=== PATIENT | female | born 1955 | race Caucasian/White ===

== ENCOUNTER 2020-08-08 08:58 | Outpatient (REF) | payer OTHER, SELFPAY ==
--- NOTE | 2020-08-08 | MM_ITS ---
EXAMINATION: MM SCREENING DIGITAL BREAST TOMOSYNTHESIS, BILATERAL CLINICAL INFORMATION: Screening. Asymptomatic. The lifetime risk of breast cancer based on the Tyrer-Cuzick Model is 5%. COMPARISON: Mammography: 08/03/2019, 06/29/2018, 06/24/2017 TECHNIQUE: Digital breast tomosynthesis is performed in both the craniocaudal and mediolateral oblique views along with computer-aided detection (CAD). Synthesized 2D images are generated from the tomosynthesis. FINDINGS: The breasts are almost entirely fatty (ACR BI-RADS breast composition Category a). There are no significant masses, abnormal calcifications, or other abnormalities. Again, a dermal lesion overlies the mid inferior right breast. The axilla are unremarkable. No significant changes. MM/MM tomosynthesis screening BI IMPRESSION: No mammographic evidence of malignancy. ASSESSMENT: BI-RADS 2: Benign RECOMMENDATION: Routine annual mammography screening. This patient's information was entered into a reminder system with a target due date for their next mammogram.
== END 2020-08-08 08:59 | disposition home or self-care (01) ==
LOC: HO.MAMMO 08:58
PROVIDERS: PCP Internal Medicine; Visit Provider Internal Medicine
DX: Z12.31 Encounter for screening mammogram for malignant neoplasm of breast (principal)
CPT/HCPCS: 77063; 77067

== ENCOUNTER 2020-09-18 07:58 | Outpatient (REF) | payer OTHER, SELFPAY ==
[2020-09-18 11:43] LABS: Hematocrit 42.6 % (37-47); Hemoglobin 13.7 g/dl (12.0-16.0); Mean Corpuscular HGB Conc 32.2 g/dl (31.0-35.0); Mean Corpuscular Hemoglobin 30.7 pg (27.0-33.0); Mean Corpuscular Volume 95.5 fL (80-98); Mean Platelet Volume 9.8 fL (9.4-12.3); Platelet Count 189 X10*3/uL (160-400); Red Blood Count 4.46 X10*6/uL (4.20-5.50); Red Cell Distribution Width 12.8 % (11.0-16.0); White Blood Count 5.2 X10*3/uL (4.8-10.8)
[2020-09-18 12:01] LABS: Glucose Urine UA NEG (NEG); Leukocyte Esterase Urine NEG (NEG); Nitrite Urine NEG (NEG); PH 5.5 (5.0-8.0); Specific Gravity - Urine 1.025 (1.005-1.025); Urine Blood 1+ (NEG); Urine Ketones NEG (NEG); Urine Protein NEG (NEG-TRACE)
[2020-09-18 12:03] LABS: Appearance Urine CLOUDY; Color Urine YELLOW
[2020-09-18 12:07] LABS: Alanine Aminotransferase 36 U/L (0-31); Albumin Level 4.2 g/dL (3.5-5.0); Alkaline Phosphatase 63 U/L (39-117); Anion Gap 16 (12-20); Aspartate Amino Transferase 36 U/L (5-31); Bilirubin Total 0.9 mg/dL (0.0-1.0); Blood Urea Nitrogen 11 mg/dL (9-16); Calcium 8.4 mg/dL (8.4-10.2); Carbon Dioxide 26 mmol/L (22-29); Chloride 105 mmol/L (96-108); Cholesterol 201 mg/dL; Estimated Glomerular Filt Rate > 60; Glucose Fasting 96 mg/dL (60-99); HDL Cholesterol 69 mg/dL; LDL Cholesterol Calculated 93 mg/dl; Sodium 143 mmol/L (135-145); Total Protein 6.2 g/dL (6.5-8.0); Triglycerides 197 mg/dL
[2020-09-18 12:20] LABS: Amorphous Sediment Urine 4+ /LPF; RBC Urine 0-2 /HPF (0); Squamous Epithelial Cell Urine 1+ /LPF; WBC Urine 0 /HPF (0-4)
== END 2020-09-18 07:59 | disposition home or self-care (01) ==
LOC: HO.HMGCLDS 07:58
PROVIDERS: PCP Internal Medicine; Visit Provider Internal Medicine
DX: E78.2 Mixed hyperlipidemia (principal); I10 Essential (primary) hypertension; R73.9 Hyperglycemia, unspecified
CPT/HCPCS: 36415; 80053; 80061; 81001; 81003; 85027

== ENCOUNTER 2020-09-23 11:46 | Outpatient (REF) | payer OTHER, SELFPAY ==
--- NOTE | 2020-09-23 11:50 | XR_ITS ---
EXAMINATION: XR KNEE BILATERAL STANDING XR KNEE, RIGHT XR KNEE, LEFT CLINICAL INFORMATION: Knee pain COMPARISON: 07/31/2018. TECHNIQUE: AP standing view both knees Left knee, AP and lateral views Right knee, AP and lateral views FINDINGS: On the AP standing view, bones, joints and soft tissues of both knees have a normal appearance. The two views of the left knee show minimal osteophyte formation of the patella. No knee joint effusion or focal soft tissue swelling. The two views of the right knee show well preserved joint spaces. No arthritic deformity or joint effusion. XR/XR knee standing BI IMPRESSION: The joint spaces of both knees are well-preserved. No significant degenerative process at either knee. There appears to be chronic, minimal osteoarthrosis of the patellofemoral compartment of the left knee.
--- NOTE | 2020-09-23 11:50 | XR_ITS ---
EXAMINATION: XR KNEE BILATERAL STANDING XR KNEE, RIGHT XR KNEE, LEFT CLINICAL INFORMATION: Knee pain COMPARISON: 07/31/2018. TECHNIQUE: AP standing view both knees Left knee, AP and lateral views Right knee, AP and lateral views FINDINGS: On the AP standing view, bones, joints and soft tissues of both knees have a normal appearance. The two views of the left knee show minimal osteophyte formation of the patella. No knee joint effusion or focal soft tissue swelling. The two views of the right knee show well preserved joint spaces. No arthritic deformity or joint effusion. XR/XR knee LT 2V IMPRESSION: The joint spaces of both knees are well-preserved. No significant degenerative process at either knee. There appears to be chronic, minimal osteoarthrosis of the patellofemoral compartment of the left knee.
--- NOTE | 2020-09-23 11:50 | XR_ITS ---
EXAMINATION: XR KNEE BILATERAL STANDING XR KNEE, RIGHT XR KNEE, LEFT CLINICAL INFORMATION: Knee pain COMPARISON: 07/31/2018. TECHNIQUE: AP standing view both knees Left knee, AP and lateral views Right knee, AP and lateral views FINDINGS: On the AP standing view, bones, joints and soft tissues of both knees have a normal appearance. The two views of the left knee show minimal osteophyte formation of the patella. No knee joint effusion or focal soft tissue swelling. The two views of the right knee show well preserved joint spaces. No arthritic deformity or joint effusion. XR/XR knee RT 2V IMPRESSION: The joint spaces of both knees are well-preserved. No significant degenerative process at either knee. There appears to be chronic, minimal osteoarthrosis of the patellofemoral compartment of the left knee.
== END 2020-09-23 11:47 | disposition home or self-care (01) ==
LOC: HO.HMGCX 11:46
PROVIDERS: PCP Internal Medicine; Visit Provider Internal Medicine
DX: G89.29 Other chronic pain (principal); M25.561 Pain in right knee; M25.562 Pain in left knee
CPT/HCPCS: 73560; 73565

== ENCOUNTER 2020-09-30 08:01 | Outpatient (REF) | payer OTHER, SELFPAY ==
--- NOTE | 2020-09-30 08:06 | MM_ITS ---
EXAMINATION: BONE DENSITOMETRY CLINICAL INDICATION: Menopause. COMPARISON: Previous BD dated 10/20/2017 and baseline BD dated 09/29/2009. TECHNIQUE: Using a [employer] DXA System (software version: 13.1) manufactured by [employer], dual-energy x-ray absorptiometry was performed of the lumbar spine and left hip. The images are of good technical quality. Summary results are attached. FINDINGS: AP SPINE L1-L4: Current: BMD 1.028 g/cm2, Z-score -0.3, T-score -1.3, osteopenia, 3.7% increase from previous, 1.2% decrease from baseline (<5% change is not significant). Prior: BMD 0.991 g/cm2. Baseline: BMD 1.041 g/cm2. LEFT FEMUR, NECK: Current: BMD 0.899 g/cm2, Z-score 0.0, T-score -1.0, normal. Prior: BMD 0.897 g/cm2. Baseline: BMD 0.879 g/cm2. LEFT FEMUR, TOTAL: Current: BMD 0.908 g/cm2, Z-score -0.1, T-score -0.8, normal, 2.8% increase from previous, 3.7% increase from baseline (<5% change is not significant). Prior: BMD 0.883 g/cm2. Baseline: BMD 0.876 g/cm2. IDENTIFIED RISK FACTORS: Early menopause, secondary osteoporosis. HISTORY OF FRACTURE: None listed. MEDICATIONS: Calcium, vitamin D. MM/XR DEXA axial skeleton IMPRESSION: 1. DIAGNOSIS: Osteopenia based on the lowest T-score value of -1.3 in the lumbar spine applying World Health Organization criteria. 2. 10-YEAR FRACTURE RISK PREDICTION, FRAX: Major osteoporotic fracture (clinical spine, forearm, hip or shoulder) 7.4%. Hip fracture 0.5%. 3. Treatment Recommendations: NOF guidelines recommend consideration for treatment in postmenopausal women and men age 50 and older presenting with the following: -A hip or vertebral (clinical or morphometric) fracture. -T-score less than or equal to -2.5 at the femoral neck or spine after appropriate evaluation to exclude secondary causes. -Low bone mass at the hip or spine and a 10-year fracture probability by FRAX of greater than or equal to 3% for hip fracture or greater than or equal to 20% for major osteoporotic fracture based on the [place] adapted WHO algorithm. 4. Other Recommendations: All treatment decisions require clinical judgment and consideration of individual patient factors, including patient preferences, comorbidities, previous drug use, risk factors not captured in the FRAX model (e.g. frailty, falls, vitamin D deficiency, increased bone turnover, interval significant decline in bone density) and possible under or overestimation of fracture risk by FRAX. Additional medical evaluation for secondary cause of low bone mineral density may be appropriate. FUTURE SCAN RECOMMENDATION: People with diagnosed cases of osteoporosis or at high risk for fracture should have regular bone mineral density tests. For patients eligible for Medicare, routine testing is allowed once every 2 years. The testing frequency can be increased to one year for patients who have rapidly progressing disease, those who are receiving or discontinuing medical therapy to restore bone mass, or have additional risk factors.
== END 2020-09-30 08:02 | disposition home or self-care (01) ==
LOC: HO.MAMMO 08:01
PROVIDERS: PCP Internal Medicine; Visit Provider Internal Medicine
DX: Z13.820 Encounter for screening for osteoporosis (principal); M85.88 Other specified disorders of bone density and structure, other site; Z78.0 Asymptomatic menopausal state
CPT/HCPCS: 77080

== ENCOUNTER 2020-10-08 07:57 | Outpatient (REF) | payer OTHER, SELFPAY ==
--- NOTE | ~2020-10-08 | XR_ITS ---
EXAMINATION: XR KNEE, RIGHT XR KNEE, LEFT CLINICAL INFORMATION: Bilateral knee pain. COMPARISON: Bilateral knee radiographs 09/23/2020. TECHNIQUE: Standing AP view of both knees is performed. Each knee is also imaged in lateral and axial patella views. FINDINGS: Right: Normal bony mineralization. No fracture or dislocation or suprapatellar effusion. No joint narrowing or erosive change or chondrocalcinosis. Axial view patella shows no joint narrowing or erosive change. No lateralization or tilting. Left: Normal bony mineralization. No fracture or dislocation or suprapatellar effusion. No joint narrowing or erosive change or chondrocalcinosis. Axial view patella shows no joint narrowing or erosive change. No lateralization or tilting. XR/XR knee RT 2V IMPRESSION: Unremarkable bilateral knees.
--- NOTE | ~2020-10-08 | XR_ITS ---
EXAMINATION: XR PELVIS CLINICAL INFORMATION: M25.559 - Pain in unspecified hip COMPARISON: None TECHNIQUE: AP view of the pelvis. FINDINGS: Bony mineralization appears normal. There is no fracture, dislocation, destructive process. The SI joints and pubis are unremarkable. There is prominent axial narrowing left hip with mild subchondral sclerosis and small osteophytes at base femoral head. There is mild benign appearing mineralization in soft tissues adjacent to the greater trochanter likely related to calcific tendinosis. There is lesser axial narrowing right hip. XR/XR pelvis 1-2V IMPRESSION: 1. Bilateral axial hip joint narrowing, greater on left. No visible erosive change. 2. Probable calcific tendinosis adjacent to left hip greater trochanter.
--- NOTE | ~2020-10-08 | XR_ITS ---
EXAMINATION: XR KNEE, RIGHT XR KNEE, LEFT CLINICAL INFORMATION: Bilateral knee pain. COMPARISON: Bilateral knee radiographs 09/23/2020. TECHNIQUE: Standing AP view of both knees is performed. Each knee is also imaged in lateral and axial patella views. FINDINGS: Right: Normal bony mineralization. No fracture or dislocation or suprapatellar effusion. No joint narrowing or erosive change or chondrocalcinosis. Axial view patella shows no joint narrowing or erosive change. No lateralization or tilting. Left: Normal bony mineralization. No fracture or dislocation or suprapatellar effusion. No joint narrowing or erosive change or chondrocalcinosis. Axial view patella shows no joint narrowing or erosive change. No lateralization or tilting. XR/XR knee LT 2V IMPRESSION: Unremarkable bilateral knees.
== END 2020-10-08 07:58 | disposition home or self-care (01) ==
LOC: HO.HOSX 07:57
PROVIDERS: Visit Provider Orthopaedic Surgery
DX: M25.562 Pain in left knee (principal); M16.0 Bilateral primary osteoarthritis of hip
CPT/HCPCS: 20610; 72170; 73560; J1100

== ENCOUNTER → 2021-01-07 10:06 | Outpatient (BNVA) | payer OTHER, SELFPAY | PROVIDERS: PCP Internal Medicine; Visit Provider Orthopaedic Surgery ==

== ENCOUNTER → 2021-02-11 10:44 | Outpatient (BNVA) | payer OTHER, SELFPAY | PROVIDERS: PCP Internal Medicine; Visit Provider Orthopaedic Surgery ==

== ENCOUNTER 2021-02-18 | Outpatient (REF) | payer OTHER, SELFPAY | END 2021-02-18 00:01 | disposition home or self-care (01) | LOC: HO.LAB | PROVIDERS: PCP Internal Medicine; Visit Provider Physician Assistant | DX: Z01.812 Encounter for preprocedural laboratory examination (principal); I10 Essential (primary) hypertension; E78.00 Pure hypercholesterolemia, unspecified; R79.89 Other specified abnormal findings of blood chemistry | CPT/HCPCS: 36415; 80048; 80053; 80061; 84443; 85025 ==

== ENCOUNTER 2021-03-11 10:41 | Outpatient (REF) | payer OTHER, SELFPAY ==
--- NOTE | ~2021-03-11 | XR_ITS ---
EXAMINATION: XR PELVIS XR HIP, LEFT CLINICAL INFORMATION: Left hip pain. COMPARISON: Most recent pelvic radiograph dated 10/08/2020. TECHNIQUE: AP view the pelvis. AP and frog-leg lateral views of the left hip. FINDINGS: Moderate bilateral hip joint space narrowing with prominent marginal osteophytes and acetabular subchondral sclerosis. No osseous erosion. No fracture or dislocation. No abnormal soft tissue calcification. XR/XR pelvis 1-2V IMPRESSION: Moderate bilateral hip osteoarthritis, not significantly changed.
--- NOTE | ~2021-03-11 | XR_ITS ---
EXAMINATION: XR PELVIS XR HIP, LEFT CLINICAL INFORMATION: Left hip pain. COMPARISON: Most recent pelvic radiograph dated 10/08/2020. TECHNIQUE: AP view the pelvis. AP and frog-leg lateral views of the left hip. FINDINGS: Moderate bilateral hip joint space narrowing with prominent marginal osteophytes and acetabular subchondral sclerosis. No osseous erosion. No fracture or dislocation. No abnormal soft tissue calcification. XR/XR hip LT min 2V IMPRESSION: Moderate bilateral hip osteoarthritis, not significantly changed.
== END 2021-03-11 10:42 | disposition home or self-care (01) ==
LOC: HO.HOSX 10:41
PROVIDERS: PCP Internal Medicine; Visit Provider Physician Assistant
DX: M16.12 Unilateral primary osteoarthritis, left hip (principal)
CPT/HCPCS: 72170; 73502

== ENCOUNTER 2021-03-16 07:31 | Inpatient (IN) | payer OTHER, SELFPAY ==
[2021-02-18 11:25] LABS: MANUAL DIFF FLAG NO
[2021-02-18 11:42] LABS: Basophils Percent Auto 0.6 % (0-2); Eosinophils Absolute Auto 0.1 X10*3/uL (0.0-0.4); Eosinophils Percent Auto 1.4 % (0-4); Hematocrit 41.2 % (37-47); Hemoglobin 13.4 g/dl (12.0-16.0); Imm Gran Abs Auto 0.01 X10*3/uL (0.00-0.03); Imm Gran Pct Auto 0.2 % (0.0-0.4); Lymphocytes Absolute Auto 1.3 X10*3/uL (1.2-4.9); Lymphocytes Percent Auto 27.1 % (20-40); Mean Corpuscular HGB Conc 32.5 g/dl (31.0-35.0); Mean Corpuscular Hemoglobin 30.6 pg (27.0-33.0); Mean Corpuscular Volume 94.1 fL (80-98); Mean Platelet Volume 9.6 fL (9.4-12.3); Monocytes Absolute Auto 0.4 X10*3/uL (0.1-1.2); Monocytes Percent Auto 7.3 % (2-11); Neutrophils Absolute Auto 3.1 X10*3/uL (2.0-8.3); Neutrophils Percent Auto 63.4 % (45-73); Platelet Count 192 X10*3/uL (160-400); Red Blood Count 4.38 X10*6/uL (4.20-5.50); Red Cell Distribution Width 12.7 % (11.0-16.0); White Blood Count 4.9 X10*3/uL (4.8-10.8)
[2021-02-18 11:49] LABS: Alanine Aminotransferase 29 U/L (0-31); Albumin Level 4.1 g/dL (3.5-5.0); Alkaline Phosphatase 63 U/L (39-117); Anion Gap 15 (12-20); Aspartate Amino Transferase 31 U/L (5-31); Bilirubin Total 0.7 mg/dL (0.0-1.0); Blood Urea Nitrogen 8 mg/dL (9-16); Calcium 8.8 mg/dL (8.4-10.2); Carbon Dioxide 25 mmol/L (22-29); Chloride 107 mmol/L (96-108); Cholesterol 194 mg/dL; Estimated Glomerular Filt Rate > 60; Glucose Fasting 98 mg/dL (60-99); HDL Cholesterol 72 mg/dL; LDL Cholesterol Calculated 90 mg/dl; Potassium 3.9 mmol/L (3.3-5.1); Sodium 143 mmol/L (135-145); Total Protein 6.2 g/dL (6.5-8.0); Triglycerides 164 mg/dL
[2021-02-18 12:10] LABS: TSH reflex Free T4 1.65 uIU/mL (0.32-4.0)
--- NOTE | 2021-02-26 09:10 | ECG_ITS ---
Test Reason : Z01.810 - Encounter for preprocedural cardiovascular exam... Blood Pressure : / mmHG Vent. Rate : 075 BPM Atrial Rate : 075 BPM P-R Int : 156 ms QRS Dur : 078 ms QT Int : 384 ms P-R-T Axes : 066 020 038 degrees QTc Int : 428 ms Sinus rhythm with frequent Premature ventricular complexes Otherwise normal ECG When compared with ECG of 04-OCT-2013 07:06, Premature ventricular complexes are now Present Referred By: Steven Lobato Electronically Signed By:CARLTON DOMINGUEZ MD
[2021-03-02 11:05] VITALS: BMI 35.4
[2021-03-02 12:09] VITALS: BP 146/76; PULSE 85; RESP 16; O2SAT 96
--- NOTE | 2021-03-02 12:11 | P.CONAN_ITS ---
Documented by User: Michelle Chin 03/15/21 08:23 HPI - Anesthesia Eval Consult details Narrative: 66yo F for Left Total Hip Replacement PCP cleared [facility] Active Problems Active Problems: All Active Problems (Updated 03/02/21 @ 11:02 by Sveta Castro) Elevated LFTs (Acute) Osteoarthritis of hips, bilateral (Acute) HTN (hypertension) (Acute) Hypercholesterolemia (Acute) Nevus (Acute) Annual physical exam (Acute) Postmenopausal (Acute) Knee pain, chronic (Acute) Past Medical History Medical History Annual physical exam Anxiety Ramon's esophagus COVID-19 vaccine series completed Elevated LFTs Glaucoma HTN (hypertension) Hypercholesterolemia Knee pain, chronic Nevus Osteoarthritis of hips, bilateral Plantar fasciitis of left foot Postmenopausal Family History Family History Father Bladder cancer Mother No problems noted. Maternal Grandmother COPD (chronic obstructive pulmonary disease) Myocardial infarction Maternal Grandfather No problems noted. Paternal Grandfather No problems noted. Paternal Grandmother No problems noted. Brother Substance use disorder Family history of problems with anesthesia: No Surgical History Surgical History H/O colonoscopy History of esophagogastroduodenoscopy (EGD) Hx of eye surgery History of Problems with Anesthesia: No Social History Social History Housing: House Are you a primary menagerie caretaker to a significant other at home: No Do you presently have visiting nurse or other home services: No Alcohol intake: current Alcohol intake frequency: holidays/special occasions only Patient Tobacco Use Status: Never used Tobacco e-Cigarette/Vaping Use: Never Used Second Hand Smoke Exposure: No Use of substances other than those prescribed or required for medical reasons: No Have you been hit, kicked, punched, or otherwise hurt by someone within the past year? 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 No CP/SOB within limits of OA pain. Meds Allergies Allergy/AdvReac Type Severity Reaction Status Date / Time amoxicillin [AMOXICILLIN] Allergy Intermediate HIVES Verified 03/02/21 11:03 latex Allergy Intermediate Redness of Verified 03/02/21 11:03 Skin, irritation Home Medications Medication Instructions Recorded Confirmed Last Taken Type flu vacc [id number](65yr up)-PF 240 ml IM 09/23/20 02/11/21 Unknown History mcg/0.7 mL intramuscular syringe varicella-zoster glycoE [id number] 0.5 ml IM DIRECTED 09/23/20 02/11/21 Unknown History adj(PF) 50 mcg/0.5 mL IM susp, kit latanoprost 0.005 % eye drops 1 drp OPHTHALMIC (EYE) BEDTIME 12/30/20 03/02/21 Unknown History timolol maleate 0.5 % eye drops 1 drp OPHTHALMIC (EYE) DAILY@0630 12/30/20 03/02/21 Unknown History Exam Exam Date and Time: March 02, 2021 1211 Height,Weight and Vital Signs: Height 5 ft 2 in Weight 87.997 kg Last Vital Signs Pulse 85 03/02/21 12:09 Resp 16 03/02/21 12:09 BP 146/76 H 03/02/21 12:09 Pulse Ox 96 03/02/21 12:09 Pertinent Lab Results Pertinent Lab Results: Lab Results 02/18/21 02/18/21 03/02/21 Range/Units 08:55 08:55 12:30 WBC 4.9 (4.8-10.8) X10*3/uL RBC 4.38 (4.20-5.50) X10*6/uL Hgb 13.4 (12.0-16.0) g/dl Hct 41.2 (37-47) % MCV 94.1 (80-98) fL MCH 30.6 (27.0-33.0) pg MCHC 32.5 (31.0-35.0) g/dl RDW 12.7 (11.0-16.0) % Plt Count 192 (160-400) X10*3/uL MPV 9.6 (9.4-12.3) fL Immature Gran % (Auto) 0.2 (0.0-0.4) % Neut % (Auto) 63.4 (45-73) % Lymph % (Auto) 27.1 (20-40) % Hamilton % (Auto) 7.3 (2-11) % Eos % (Auto) 1.4 (0-4) % Baso % (Auto) 0.6 (0-2) % Lymph # (Auto) 1.3 (1.2-4.9) X10*3/uL Hamilton # (Auto) 0.4 (0.1-1.2) X10*3/uL Eos # (Auto) 0.1 (0.0-0.4) X10*3/uL Baso # (Auto) 0.0 (0.0-0.2) X10*3/uL Abs Immat Gran (auto) 0.01 (0.00-0.03) X10*3/uL Absolute Neuts (auto) 3.1 (2.0-8.3) X10*3/uL Absolute Nucleated RBC 0.000 (0.0-0.012) X10*3/uL Nucleated RBC % (auto) 0.0 (0.0-0.2) /100WBC Sodium 143 (135-145) mmol/L Potassium 3.9 (3.3-5.1) mmol/L Chloride 107 (96-108) mmol/L Carbon Dioxide 25 (22-29) mmol/L Anion Gap 15 (12-20) BUN 8 L (9-16) mg/dL Creatinine 0.68 (0.5-1.4) mg/dL Estim Creat Clear Calc TNP Estimated GFR > 60 Random Glucose TNP Fasting Glucose 98 (60-99) mg/dL Calcium 8.8 (8.4-10.2) mg/dL Total Bilirubin 0.7 (0.0-1.0) mg/dL AST 31 (5-31) U/L ALT 29 (0-31) U/L Alkaline Phosphatase 63 (39-117) U/L Total Protein 6.2 L (6.5-8.0) g/dL Albumin 4.1 (3.5-5.0) g/dL Triglycerides 164 mg/dL Cholesterol 194 mg/dL LDL Cholesterol, Calc 90 mg/dl HDL Cholesterol 72 mg/dL TSH 1.65 (0.32-4.0) uIU/mL Nasal Screen MRSA (PCR) NEGATIVE (Negative) Nasal S. aureus Screen NEGATIVE (Negative) Nasal MRSA/S.aureus Interp SEE NOTE Blood Type Antibody Screen 03/02/21 03/02/21 Range/Units 12:40 12:40 WBC 6.9 (4.8-10.8) X10*3/uL RBC 4.70 (4.20-5.50) X10*6/uL Hgb 14.3 (12.0-16.0) g/dl Hct 43.5 (37-47) % MCV 92.6 (80-98) fL MCH 30.4 (27.0-33.0) pg MCHC 32.9 (31.0-35.0) g/dl RDW 12.7 (11.0-16.0) % Plt Count 242 D (160-400) X10*3/uL MPV 9.3 L (9.4-12.3) fL Immature Gran % (Auto) (0.0-0.4) % Neut % (Auto) (45-73) % Lymph % (Auto) (20-40) % Hamilton % (Auto) (2-11) % Eos % (Auto) (0-4) % Baso % (Auto) (0-2) % Lymph # (Auto) (1.2-4.9) X10*3/uL Hamilton # (Auto) (0.1-1.2) X10*3/uL Eos # (Auto) (0.0-0.4) X10*3/uL Baso # (Auto) (0.0-0.2) X10*3/uL Abs Immat Gran (auto) (0.00-0.03) X10*3/uL Absolute Neuts (auto) (2.0-8.3) X10*3/uL Absolute Nucleated RBC 0.000 (0.0-0.012) X10*3/uL Nucleated RBC % (auto) 0.0 (0.0-0.2) /100WBC Sodium (135-145) mmol/L Potassium (3.3-5.1) mmol/L Chloride (96-108) mmol/L Carbon Dioxide (22-29) mmol/L Anion Gap (12-20) BUN (9-16) mg/dL Creatinine (0.5-1.4) mg/dL Estim Creat Clear Calc Estimated GFR Random Glucose Fasting Glucose (60-99) mg/dL Calcium (8.4-10.2) mg/dL Total Bilirubin (0.0-1.0) mg/dL AST (5-31) U/L ALT (0-31) U/L Alkaline Phosphatase (39-117) U/L Total Protein (6.5-8.0) g/dL Albumin (3.5-5.0) g/dL Triglycerides mg/dL Cholesterol mg/dL LDL Cholesterol, Calc mg/dl HDL Cholesterol mg/dL TSH (0.32-4.0) uIU/mL Nasal Screen MRSA (PCR) (Negative) Nasal S. aureus Screen (Negative) Nasal MRSA/S.aureus Interp Blood Type O Positive Antibody Screen NEGATIVE Narrative Narrative: EKG 02/2021 SR with freq PVCs @ 75 Airway Mallampati Class: II TM Dist: >3cm Neck ROM: Full Loose/Missing/Broken Teeth: No (2 crowned upper side molars) Heart: RRR Lungs: CTAB Assessment and Plan Assessment Anesthesia Assessment: Anesthesia Plan Discussed (GA with possible block) and PAT Visit Documented by User: Nehemias Dubois 03/16/21 08:46 PMFSH Past Medical History Medical History Annual physical exam Anxiety Ramon's esophagus COVID-19 vaccine series completed Elevated LFTs Glaucoma HTN (hypertension) Hypercholesterolemia Knee pain, chronic Nevus Osteoarthritis of hips, bilateral Plantar fasciitis of left foot Postmenopausal Family History Family History Father Bladder cancer Mother No problems noted. Maternal Grandmother COPD (chronic obstructive pulmonary disease) Myocardial infarction Maternal Grandfather No problems noted. Paternal Grandfather No problems noted. Paternal Grandmother No problems noted. Brother Substance use disorder Surgical History Surgical History H/O colonoscopy History of esophagogastroduodenoscopy (EGD) Hx of eye surgery Social History Social History Housing: House Are you a primary menagerie caretaker to a significant other at home: No Do you presently have visiting nurse or other home services: No Alcohol intake: current Alcohol intake frequency: holidays/special occasions only Patient Tobacco Use Status: Never used Tobacco e-Cigarette/Vaping Use: Never Used Second Hand Smoke Exposure: No Use of substances other than those prescribed or required for medical reasons: No Have you been hit, kicked, punched, or otherwise hurt by someone within the past year? 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 Meds Allergies Allergy/AdvReac Type Severity Reaction Status Date / Time amoxicillin [AMOXICILLIN] Allergy Intermediate HIVES Verified 03/02/21 11:03 latex Allergy Intermediate Redness of Verified 03/02/21 11:03 Skin, irritation Home Medications Medication Instructions Recorded Confirmed Last Taken Type flu vacc [id number](65yr up)-PF 240 ml IM 09/23/20 02/11/21 Unknown History mcg/0.7 mL intramuscular syringe varicella-zoster glycoE vacc-[id number] 0.5 ml IM DIRECTED 09/23/20 02/11/21 Unknown History adj(PF) 50 mcg/0.5 mL IM susp, kit latanoprost 0.005 % eye drops 1 drp OPHTHALMIC (EYE) BEDTIME 12/30/20 03/02/21 Unknown History timolol maleate 0.5 % eye drops 1 drp OPHTHALMIC (EYE) DAILY@0630 12/30/20 03/02/21 Unknown History Exam Airway Mallampati Class: II TM Dist: >3cm Neck ROM: Full Loose/Missing/Broken Teeth: No Heart: [id number] Lungs: cta b/l Assessment and Plan Assessment Anesthesia Assessment: Anesthesia Plan Discussed, PAT Visit and Chart Reviewed Final Anesthetic Review NPO: Yes ASA Class: III Final Preanesthetic Review: No Changes in Pt Med Stat, Meds/Allgs Chart Reviewed, Consent Obtained/Reviewed and Anes Risks/Benef Reviewed Patient Risk: Intermediate Procedure Risk: Intermediate Assessment/Block/Sedation in SS: Assess/Block/Sedation-SS Anesthetic Plan Anesthetic Plan: GA and Agree w/ Assess. and Plan Disposition: Standard PACU
[2021-03-02 13:18] LABS: Hematocrit 43.5 % (37-47); Hemoglobin 14.3 g/dl (12.0-16.0); Mean Corpuscular HGB Conc 32.9 g/dl (31.0-35.0); Mean Corpuscular Hemoglobin 30.4 pg (27.0-33.0); Mean Corpuscular Volume 92.6 fL (80-98); Mean Platelet Volume 9.3 fL (9.4-12.3); Platelet Count 242 X10*3/uL (160-400); Red Cell Distribution Width 12.7 % (11.0-16.0); White Blood Count 6.9 X10*3/uL (4.8-10.8)
[2021-03-02 14:11] LABS: MRSA Nasal PCR NEGATIVE (Negative); SA Nasal PCR NEGATIVE (Negative)
[2021-03-16] VITALS (19 sets, daily range): BP systolic 128–160; BP diastolic 69–99; PULSE 72–108; RESP 10–116; TEMP 35.8–36.6; O2SAT 90–98
--- NOTE | ~2021-03-16 | XR_ITS ---
EXAMINATION: XR PELVIS CLINICAL INFORMATION: Post left hip replacement COMPARISON: Previous x-ray most recent 03/11/2021 TECHNIQUE: AP view of the pelvis. FINDINGS: There is a new left hip replacement in satisfactory position. No fracture or dislocation is seen. Bones of the pelvis and right hip are unremarkable. There are postoperative changes to the soft tissues. XR/XR pelvis 1-2V IMPRESSION: Satisfactory appearance of left hip replacement.
[2021-03-16] MEDS: oxyCODONE HCl ER 10 MG TAB.ER.12H PO (07:57)
[2021-03-16] MEDS: Lactated Ringers 1,000 ML 100 ML IVCONT (08:44)
[2021-03-16 09:15] LABS: COVID-19 Test Negative (Negative)
--- NOTE | 2021-03-16 09:18 | MHC.SHP ---
Pre-Procedural Eval Section A Date of Service: 03/16/21 The patient is an INPATIENT: No Changes since office visit: Yes Patient answered all questions; No Cold of Flu in the past 2 weeks, No New Medical Problems and No Changes in Medication The History & Physical has been completed within 30 days and I have reviewed it.: Yes Section B Chief Complaint: LEFT TOTAL HIP ARTHROPLASTY Allergies: Allergies Allergy/AdvReac Type Severity Reaction Status Date / Time amoxicillin [AMOXICILLIN] Allergy Intermediate HIVES Verified 03/02/21 11:03 latex Allergy Intermediate Redness of Verified 03/02/21 11:03 Skin, irritation Plan I have reviewed the history and physical and performed a pertinent physical examination on my patient. No changes have occurred unless specified.
--- NOTE | 2021-03-16 11:42 | P.BOP_ITS ---
Brief Operative Note Date of Service: 03/16/21 Pre-op diagnosis: left hip OA Procedure: Left DANNY Implants: Edis Trident2#50 and Accolade2#4 132deg with -5 36 ceramic head Surgeon: Steevn Lobato MD Anesthesia: GETA and local Was an Dealership Manager used for this Procedure?: Yes Dealership Manager: Corey Perez Estimated blood loss (mL): 150 IV fluids (mL): 1,000 Pathology: other Condition: stable Disposition: PACU
[2021-03-16] MEDS: HYDROmorphone HCl 0.5 MG/0.5 ML SYRINGE IVPUSH (12:11)
--- NOTE | 2021-03-16 12:12 | W.PM.OPN ---
Operative Note Operative Note Date of Service: 03/16/21 Narrative: Pre-op diagnosis: left hip OA Procedure: Left DANNY Implants: Edis Trident2#50 and Accolade2#4 132deg with -5 36 ceramic head Surgeon: Steven Lobato MD Anesthesia: GETA and local Was an Cafeteria Worker used for this Procedure?: Yes Cafeteria Worker: Corey Perez Estimated blood loss (mL): 150 IV fluids (mL): 1,000 Pathology: other Condition: stable Disposition: PACU Procedure in detail: Patient was brought into the operating room and placed in the lateral decubitus position. All bony prominences were well padded and the limb was prepped and draped in standard sterile fashion. Time-out was called to identify proper site procedure proper surgeon IV antibiotics and 1 g of transamix acid were administered. I began by making a curvilinear incision over the posterolateral aspect of the greater trochanter. Dissection was taken down to the tensor fascia which was incised in line with the incision and a Charnley retractor was placed. Cautery was used to maintain hemostasis. The hip was internally rotated and the external rotators were identified. The vessels were cauterized and a full-thickness capsular/external rotator layer was developed starting just proximal to the piriformis. THis layer was tagged and a dull Hohmann retractor was placed underneath the neck in the hip was dislocated. _The head was arthritic. A neck cut was made 1 cm proximal to the lesser trochanter and the head and neck were removed and measured on the back table. I then placed my anterior-posterior acetabular retractors and performed a labrectomy. The cup was ____deep with a diminutive posterior wall. I sequentially reamed up to a size _50__ and impacted a __50 mm cup__ at approximately 45 degrees of inclination and 25 degrees of version. I then placed a __0deg liner and turned my attention to the femur. I identified the piriformis insertion and used this as a starting point for my shanaeie cutter. The medius tendon was protected with a Hibs retractor. I then used a Charnley awl to identify the canal and a curved curette to remove the lateral bone. I then sequentially broached in the patient's natural version to a size __#4__ and placed my trial implants. Using a ____36 -5 head and a 132 deg neck I took the hip through range of motion andwas very satisfied with the stability and length. Therefore I removed all instrumentation copiously irrigated placed my final femoral implant. I again took the hip through range of motion and was satisfied with the stability and length and so my final femoral head was impacted in place. I then irrigated for 3 minutes with iodine and placed 1 g of local TXA. I then performed a capsular closure with FiberWire, Cata's fascia with 0 Vicryl, subcuticular with 2-0 vicryl and skin with marie. Patient was placed into a sterile dressing. Radiographs were obtained at the completion of the case and I was satisfied with the component position. Patient was extubated brought to the recovery room in stable condition.
[2021-03-16] MEDS: fentaNYL citrate/PF 100 MCG/2 ML VIAL 50 MCG IVPUSH (12:29)
[2021-03-16] MEDS: oxyCODONE HCl Immed Release 5 MG TABLET 10 MG PO (12:30)
[2021-03-16] MEDS: Dextrose 5 % and 0.45 % NaCl 1,000 ML 80 ML IVCONT (18:07)
[2021-03-16] MEDS: 0.9 % Sodium Chloride Flush 3 ML SYRINGE IVFLUSH (18:07)
--- NOTE | 2021-03-16 18:24 | PM.IMCN ---
History of Present Illness Data of Consult Service Date: 03/16/21 Requesting physician: Steven Lobato Primary Care Provider: Ni Garduno MD HPI Reason for consult: Medical management 66 year old female with HTN, HLD,anxiety, glaucoma, OA of the hip that has not been amenable to medical managment. She underwent elective right total hip arthroplasty earlier today and is doing well other than some soreness. She has no SOB, no chest pain. Vitals reviewed and Ok Review of Systems Review of Systems: Gen: no fever Resp: no sob, no cough CV: no chest, no SAINZ, no leg edema GI: No n/v, no abd pain Neuro: No confusion MSK: right hip pain PMFSH Medical History Annual physical exam Anxiety Ramon's esophagus COVID-19 vaccine series completed Elevated LFTs Glaucoma HTN (hypertension) Hypercholesterolemia Knee pain, chronic Nevus Osteoarthritis of hips, bilateral Plantar fasciitis of left foot Postmenopausal Family History Father Bladder cancer Mother No problems noted. Maternal Grandmother COPD (chronic obstructive pulmonary disease) Myocardial infarction Maternal Grandfather No problems noted. Paternal Grandfather No problems noted. Paternal Grandmother No problems noted. Brother Substance use disorder Family history: reviewed and not pertinent Surgical History H/O colonoscopy History of esophagogastroduodenoscopy (EGD) Hx of eye surgery Social History Household Members: Spouse Household Members Other:: Housing: House Are you a primary care management associate to a significant other at home: No Do you presently have visiting nurse or other home services: No Alcohol intake: current Alcohol intake frequency: holidays/special occasions only Patient Tobacco Use Status: Never used Tobacco e-Cigarette/Vaping Use: Never Used Second Hand Smoke Exposure: No Use of substances other than those prescribed or required for medical reasons: No Currently Displaying Signs/Symptoms of Drug Intoxication Withdrawal: No Have you been hit, kicked, punched, or otherwise hurt by someone within the past year? 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 Meds Allergies Allergy/AdvReac Type Severity Reaction Status Date / Time amoxicillin [AMOXICILLIN] Allergy Intermediate HIVES Verified 03/02/21 11:03 latex Allergy Intermediate Redness of Verified 03/02/21 11:03 Skin, irritation Active Medications: Current Medications Generic Name Dose Route Start Last Admin Trade Name Freq PRN Reason Stop Dose Admin Acetaminophen 650 mg 03/16/21 17:56 Acetaminophen 325 Mg Tablet PO Q6H PRN Pain, Mild (Pain Scale 1-3) Celecoxib 200 mg 03/16/21 21:00 Celecoxib 200 Mg Capsule PO BID ANDREW Docusate Sodium 100 mg 03/16/21 21:00 Docusate Sodium 100 Mg Capsule PO BID ANDREW Hydromorphone HCl 0.25 mg 03/16/21 17:56 Hydromorphone Hcl 0.5 Mg/0.5 Ml Syringe IVPUSH Q4H PRN Pain, Severe (Pain Scale 7-10) Clindamycin Phosphate 900 mg in 50 mls @ 50 mls/hr 03/16/21 21:00 Cleocin IV 03/16/21 21:59 POSTOP ONE Dextrose/Sodium Chloride 1,000 mls @ 80 mls/hr 03/16/21 17:56 03/16/21 18:07 D51/2ns IVCONT 80 mls/hr .[id number] ANDREW Administration Naloxone HCl 0.2 mg 03/16/21 17:56 Naloxone Hcl 0.4 Mg/Ml Vial IVPUSH Q2M PRN Excessive sedation or RR < 8 Ondansetron HCl 4 mg 03/16/21 17:56 Ondansetron Hcl 4 Mg/2 Ml Vial IVPUSH Q8H PRN Nausea and Vomiting Oxycodone HCl 5 mg 03/16/21 17:56 Oxycodone Hcl Immed Release 5 Mg Tablet PO Q4H PRN Pain, Moderate (Pain Scale 4-6 Oxycodone HCl 10 mg 03/16/21 21:00 Oxycodone Hcl Er 10 Mg Tab.Er.12h PO BID ANDREW Sodium Chloride 3 ml 03/16/21 17:56 03/16/21 18:07 0.9 % Sodium Chloride Flush 3 Ml Syringe IVFLUSH 3 ml QSHIFT [facility] Administration Home Medications Medication Instructions Recorded Confirmed Last Taken Type flu vacc [id number](65yr up)-PF 240 ml IM 09/23/20 02/11/21 Unknown History mcg/0.7 mL intramuscular syringe varicella-zoster glycoE [id number] 0.5 ml IM DIRECTED 09/23/20 02/11/21 Unknown History adj(PF) 50 mcg/0.5 mL IM susp, kit latanoprost 0.005 % eye drops 1 drp OPHTHALMIC (EYE) BEDTIME 12/30/20 03/02/21 Unknown History timolol maleate 0.5 % eye drops 1 drp OPHTHALMIC (EYE) DAILY@0630 12/30/20 03/02/21 Unknown History Physical Exam Vital Signs and Narrative: Vital Signs: Last Vital Signs Temp 96.8 F 03/16/21 18:09 Pulse 107 H 03/16/21 18:09 Resp 19 03/16/21 18:09 BP 136/92 H 03/16/21 18:09 Pulse Ox 94 03/16/21 18:09 Body Mass Index 35.4 Const: Other: Constitutional Awake and Alert, No apparent distress Neck Supple, No lymphadenopathy Cardiovascular RRR, No M/R/G, S1 S2, No S3 S4, No pedal edema Respiratory Lungs clear, No respiratory distress Gastrointestinal Non tender, Non-distended Skin No rash, surgical wound intact Neurological Alert & oriented x3 Psychological Appropriate affect Results Labs CBC and Chem 7: 03/02/21 12:40 02/18/21 08:55 Labs: Laboratory Results - last 24 hr 03/16/21 08:00 COVID-19 ([facility]ACE) Negative COVID-19 Clin Com See Note Imaging Radiologist's Impressions: Impressions Pelvis X-Ray 03/16/21 10:29 IMPRESSION: Satisfactory appearance of left hip replacement. Assessment and Plan (1) HTN (hypertension): Status: Acute (2) Hypercholesterolemia: Status: Acute (3) HLD (hyperlipidemia): Status: Acute 66 year female with HTN, anxiety, glaucoma, HLD and OA of hip s/p right hip DANNY today without complication 1/ HTN--continue Losartan 2/HLD-continue Lipitor 20 3/Anxiety--continue Celexa 4/Glaucoma--continue Latanoprost drop 5/GERD--Omeprazol 6/s/p hip arthroplasty--management by surgery
[2021-03-16] MEDS: ondansetron HCL 4 MG/2 ML VIAL IVPUSH (18:37)
[2021-03-16] MEDS: oxyCODONE HCl Immed Release 5 MG TABLET PO (18:37)
[2021-03-16] MEDS: Celecoxib 200 MG CAPSULE PO (21:17)
[2021-03-16] MEDS: Acetaminophen 325 MG TABLET 650 MG PO (21:17)
[2021-03-16] MEDS: Docusate Sodium 100 MG CAPSULE PO (21:17)
[2021-03-16] MEDS: Clindamycin Phosphate/D5W 900 MG/50 ML PIGGYBACK 50 MG IV (23:20)
[2021-03-17] VITALS (9 sets, daily range): BP systolic 108–134; BP diastolic 60–78; PULSE 82–99; RESP 16–18; TEMP 35.8–36.7; O2SAT 94–97
[2021-03-17] MEDS: HYDROmorphone HCl 0.5 MG/0.5 ML SYRINGE 0.25 MG IVPUSH ×3 (00:42→18:01)
[2021-03-17] MEDS: Dextrose 5 % and 0.45 % NaCl 1,000 ML 80 ML IVCONT ×2 (06:14→18:05)
[2021-03-17 06:58] LABS: Anion Gap 16 (12-20); Blood Urea Nitrogen 12 mg/dL (9-16); Calcium 7.8 mg/dL (8.4-10.2); Carbon Dioxide 23 mmol/L (22-29); Chloride 100 mmol/L (96-108); Creatinine Clr Calc Pharmacy 80.2; Estimated Glomerular Filt Rate > 60; Glucose Fasting 148 mg/dL (60-99); Potassium 3.5 mmol/L (3.3-5.1); Sodium 135 mmol/L (135-145)
--- NOTE | 2021-03-17 07:57 | PM.PNORT ---
Subjective Subjective Date of Service: 03/17/21 Interval history: POD1 s/p LTHA 03/16/[address] Lobato. Patient is resting comfortably in bed. No overnight events. Pain is well managed. Physical Exam Vital Signs: Vital Signs: Last Vital Signs Temp 96.7 F L 03/17/21 03:00 Pulse 99 03/17/21 03:00 Resp 18 03/17/21 05:53 BP 134/70 03/17/21 03:00 Pulse Ox 95 03/17/21 03:00 Body Mass Index 35.4 Const: General: cooperative and no acute distress Orientation/consciousness: patient oriented x3 Resp: Effort & Inspection: normal respiratory effort and able to speak in complete sentences Cardio: Peripheral pulses: Peripheral pulses 2+ throughout Skin: General skin exam: no rashes or lesions noted Neuro: General: patient oriented x3 Extrem: Other: Left hip no ecchymosis, erythema or drainage. Aquacel dressing is clean, dry, and intact. NVI Progress Note: A&P Assessment and plan (1) Status post total hip replacement, left: Status: Acute Assessment and Plan: Continue pain mgmnt Begin Lovenox for dvt ppx begin PT for LTHA Dispo planning-Pending PT eval, pain mgmnt Fall Risk Details Current Medications: Current Medications Generic Name Dose Route Start Last Admin Trade Name Freq PRN Reason Stop Dose Admin Acetaminophen 650 mg 03/16/21 17:56 03/16/21 21:17 Acetaminophen 325 Mg Tablet PO 650 mg Q6H PRN Administration Pain, Mild (Pain Scale 1-3) Aspirin 325 mg 03/17/21 11:00 Aspirin 325 Mg Tablet PO BID ANDREW Celecoxib 200 mg 03/16/21 21:00 03/16/21 21:17 Celecoxib 200 Mg Capsule PO 200 mg BID ANDREW Administration Docusate Sodium 100 mg 03/16/21 21:00 03/16/21 21:17 Docusate Sodium 100 Mg Capsule PO 100 mg BID ANDREW Administration Hydromorphone HCl 0.25 mg 03/16/21 17:56 03/17/21 04:49 Hydromorphone Hcl 0.5 Mg/0.5 Ml Syringe IVPUSH 0.25 mg Q4H PRN Administration Pain, Severe (Pain Scale 7-10) Dextrose/Sodium Chloride 1,000 mls @ 80 mls/hr 03/16/21 17:56 03/17/21 06:14 D51/2ns IVCONT 80 mls/hr .[id number] ANDREW Administration Naloxone HCl 0.2 mg 03/16/21 17:56 Naloxone Hcl 0.4 Mg/Ml Vial IVPUSH Q2M PRN Excessive sedation or RR < 8 Ondansetron HCl 4 mg 03/16/21 17:56 03/16/21 18:37 Ondansetron Hcl 4 Mg/2 Ml Vial IVPUSH 4 mg Q8H PRN Administration Nausea and Vomiting Oxycodone HCl 5 mg 03/16/21 17:56 03/16/21 18:37 Oxycodone Hcl Immed Release 5 Mg Tablet PO 5 mg Q4H PRN Administration Pain, Moderate (Pain Scale 4-6 Oxycodone HCl 10 mg 03/16/21 21:00 03/16/21 21:13 Oxycodone Hcl Er 10 Mg Tab.Er.12h PO Not Given BID ANDREW Sodium Chloride 3 ml 03/16/21 17:56 03/17/21 00:32 0.9 % Sodium Chloride Flush 3 Ml Syringe IVFLUSH Not Given QSHIFT ANDREW Time Spent With Patient Time: Total time spent is greater than 50% in coordination of care (as documented) at patient's floor/unit and/or counseling patient: Time with patient: less than 15 minutes Procedures Date of Service Date of Service: 03/17/21 Quality Stroke Does the patient have a stroke diagnosis?: No VTE Prior VTE?: No VTE Risk Level:: Surgical - high VTE Device Contraindication: N/A - Device Ordered VTE Drug Contraindication: N/A - Med Ordered
[2021-03-17] MEDS: Celecoxib 200 MG CAPSULE PO ×2 (07:59→20:35)
[2021-03-17] MEDS: Docusate Sodium 100 MG CAPSULE PO ×2 (07:59→20:36)
[2021-03-17] MEDS: oxyCODONE HCl Immed Release 5 MG TABLET PO ×2 (07:59→12:46)
[2021-03-17] MEDS: Enoxaparin Sodium 40 MG/0.4 ML SYRINGE SUBCUT (10:11)
[2021-03-17] MEDS: oxyCODONE HCl ER 10 MG TAB.ER.12H PO ×2 (10:11→20:42)
--- NOTE | 2021-03-17 10:25 | HO.PM.IMPN ---
Subjective Subjective Date of Service: 03/17/21 Interval History: s/ in f/u for med management, s/p DANNY pod 1, has some soreness otherwise doing well Review of Systems Gen: no fever Resp: no sob, no cough CV: no chest, no SAINZ, no leg edema GI: No n/v, no abd pain Neuro: No confusion MSK: right hip pain Physical Exam Vital Signs: Vital Signs: Last Vital Signs Temp 98.0 F 03/17/21 07:00 Pulse 99 03/17/21 08:13 Resp 16 03/17/21 07:00 BP 134/70 03/17/21 08:13 Pulse Ox 95 03/17/21 08:13 Body Mass Index 35.4 Const: Other: Constitutional Awake and Alert, No apparent distress Neck Supple, No lymphadenopathy Cardiovascular RRR, No M/R/G, S1 S2, No S3 S4, No pedal edema Respiratory Lungs clear, No respiratory distress Gastrointestinal Non tender, Non-distended Skin No rash, surgical wound intact Neurological Alert & oriented x3 Psychological Appropriate affect Objective Data Current Medications Generic Name Dose Route Start Last Admin Trade Name Freq PRN Reason Stop Dose Admin Acetaminophen 650 mg 03/16/21 17:56 03/16/21 21:17 Acetaminophen 325 Mg Tablet PO 650 mg Q6H PRN Administration Pain, Mild (Pain Scale 1-3) Celecoxib 200 mg 03/16/21 21:00 03/17/21 07:59 Celecoxib 200 Mg Capsule PO 200 mg BID ANDREW Administration Docusate Sodium 100 mg 03/16/21 21:00 03/17/21 07:59 Docusate Sodium 100 Mg Capsule PO 100 mg BID ANDREW Administration Enoxaparin Sodium 40 mg 03/17/21 10:00 03/17/21 10:11 Enoxaparin Sodium 40 Mg/0.4 Ml Syringe SUBCUT 40 mg Q24H ANDREW Administration Hydromorphone HCl 0.25 mg 03/16/21 17:56 03/17/21 04:49 Hydromorphone Hcl 0.5 Mg/0.5 Ml Syringe IVPUSH 0.25 mg Q4H PRN Administration Pain, Severe (Pain Scale 7-10) Dextrose/Sodium Chloride 1,000 mls @ 80 mls/hr 03/16/21 17:56 03/17/21 06:14 D51/2ns IVCONT 80 mls/hr .[id number] ANDREW Administration Naloxone HCl 0.2 mg 03/16/21 17:56 Naloxone Hcl 0.4 Mg/Ml Vial IVPUSH Q2M PRN Excessive sedation or RR < 8 Ondansetron HCl 4 mg 03/16/21 17:56 03/16/21 18:37 Ondansetron Hcl 4 Mg/2 Ml Vial IVPUSH 4 mg Q8H PRN Administration Nausea and Vomiting Oxycodone HCl 5 mg 03/16/21 17:56 03/17/21 07:59 Oxycodone Hcl Immed Release 5 Mg Tablet PO 5 mg Q4H PRN Administration Pain, Moderate (Pain Scale 4-6 Oxycodone HCl 10 mg 03/16/21 21:00 03/17/21 10:11 Oxycodone Hcl Er 10 Mg Tab.Er.12h PO 10 mg BID ANDREW Administration Sodium Chloride 3 ml 03/16/21 17:56 03/17/21 08:00 0.9 % Sodium Chloride Flush 3 Ml Syringe IVFLUSH Not Given QSHIFT [facility] Labs CBC & Chem 7: 03/02/21 12:40 03/17/21 05:42 Labs: Laboratory Results - last 24 hr 03/17/21 05:42 Sodium 135 Potassium 3.5 Chloride 100 Carbon Dioxide 23 Anion Gap 16 BUN 12 Creatinine 0.71 Estim Creat Clear Calc 80.2 Estimated GFR > 60 Fasting Glucose 148 H D Calcium 7.8 L D Quality Stroke Does the patient have a stroke diagnosis?: No VTE Prior VTE?: No VTE Risk Level:: Surgical - high VTE Device Contraindication: N/A - Device Ordered VTE Drug Contraindication: N/A - Med Ordered Assessment and Plan (1) HTN (hypertension): Status: Acute (2) Hypercholesterolemia: Status: Acute (3) HLD (hyperlipidemia): Status: Acute Assessment and Plan: 66 year female with HTN, anxiety, glaucoma, HLD and OA of hip s/p right hip DANNY today without complication 1/ HTN--continue Losartan 2/HLD-continue Lipitor 20 3/Anxiety--continue Celexa 4/Glaucoma--continue Latanoprost drop 5/GERD--Omeprazol 6/s/p hip arthroplasty--management by surgery DVT prophylaxis per surgyr Sing off as no other acute issues
[2021-03-17] MEDS: Losartan Potassium 50 MG TABLET PO (10:48)
[2021-03-17] MEDS: Omeprazole 20 MG CAPSULE.DR PO (10:48)
[2021-03-17] MEDS: Escitalopram Oxalate 5 MG TABLET PO (12:45)
[2021-03-17] MEDS: Acetaminophen 325 MG TABLET 650 MG PO (12:45)
[2021-03-17] MEDS: timoloL maleate 0.5 % Oph Sol 5 ML DRBTL 1 DROP EYE-BOTH (12:48)
--- NOTE | 2021-03-17 15:58 | HO.POSTANES ---
Post Anesthesia Evaluation Post Anesthesia Evaluation Vital Signs: Vital Signs Temp Pulse Resp BP Pulse Ox 03/17/21 13:37 93 123/72 96 03/17/21 11:00 97.1 F 93 17 123/72 96 03/17/21 08:13 99 134/70 95 03/17/21 07:00 98.0 F 82 16 120/78 96 03/17/21 05:53 18 Anesthesia: General Mental Status: Awake Pain Control: Satisfactory Nausea/Vomiting: None Hydration: Adequate Anesthesia-Related Issues: No Anes. Related Issues
[2021-03-17] MEDS: Atorvastatin Calcium 20 MG TABLET PO (20:36)
[2021-03-17] MEDS: Latanoprost 0.005 % Ophth Sol 2.5 ML DROPS 1 DROP EYE-BOTH (20:46)
--- NOTE | 2021-03-17 21:08 | PC.NURSE ---
BLADDER SCAN FOR 0 AMOUNT NO NEED TO STR. CATH
[2021-03-18 00:33] VITALS: BP 161/78; PULSE 72; RESP 16; TEMP 36.7; O2SAT 97
[2021-03-18 04:00] VITALS: BP 97/65; PULSE 100; RESP 16; TEMP 36.9; O2SAT 99
[2021-03-18] MEDS: Omeprazole 20 MG CAPSULE.DR PO (06:05)
[2021-03-18 06:41] LABS: MANUAL DIFF FLAG NO
[2021-03-18 06:56] LABS: Basophils Percent Auto 0.2 % (0-2); Eosinophils Percent Auto 0.2 % (0-4); Hematocrit 35.4 % (37-47); Hemoglobin 11.6 g/dl (12.0-16.0); Imm Gran Abs Auto 0.04 X10*3/uL (0.00-0.03); Imm Gran Pct Auto 0.4 % (0.0-0.4); Lymphocytes Absolute Auto 1.1 X10*3/uL (1.2-4.9); Lymphocytes Percent Auto 11.9 % (20-40); Mean Corpuscular HGB Conc 32.8 g/dl (31.0-35.0); Mean Corpuscular Hemoglobin 30.3 pg (27.0-33.0); Mean Corpuscular Volume 92.4 fL (80-98); Monocytes Absolute Auto 0.7 X10*3/uL (0.1-1.2); Monocytes Percent Auto 7.9 % (2-11); Neutrophils Absolute Auto 7.4 X10*3/uL (2.0-8.3); Neutrophils Percent Auto 79.4 % (45-73); Platelet Count 168 X10*3/uL (160-400); Red Blood Count 3.83 X10*6/uL (4.20-5.50); Red Cell Distribution Width 12.3 % (11.0-16.0); White Blood Count 9.4 X10*3/uL (4.8-10.8)
[2021-03-18 07:31] VITALS: BP 131/69; PULSE 77; RESP 16; TEMP 36.2; O2SAT 96
[2021-03-18 08:19] LABS: Anion Gap 15 (12-20); Blood Urea Nitrogen 6 mg/dL (9-16); Calcium 8.7 mg/dL (8.4-10.2); Carbon Dioxide 27 mmol/L (22-29); Chloride 103 mmol/L (96-108); Creatinine Clr Calc Pharmacy 83.8; Estimated Glomerular Filt Rate > 60; Glucose Fasting 130 mg/dL (60-99); Potassium 3.5 mmol/L (3.3-5.1); Sodium 141 mmol/L (135-145)
--- NOTE | 2021-03-18 08:37 | P.DS_ITS ---
DS: Providers Provider Date of Service: 03/18/21 Date of admission: 03/16/21 07:31 Primary care physician: Ni Garduno MD Consults: 03/16/21 17:56 Consult to Hospitalist Routine Consulting Provider: Hospitalist Reason For Exam: post op medical management DS: Diagnosis Discharge Diagnosis (1) Status post total hip replacement, left: Status: Acute DS: Medications Discharge Medications Home Medications: Home Medications Medication Instructions Recorded Confirmed latanoprost 0.005 % eye drops 1 drp OPHTHALMIC (EYE) BEDTIME 12/30/20 03/02/21 timolol maleate 0.5 % eye drops 1 drp OPHTHALMIC (EYE) DAILY@0630 12/30/20 03/02/21 budesonide-formoterol [Symbicort] 2 puff PO BID 03/17/21 03/17/21 Previous Rx's Medication Instructions Recorded atorvastatin 20 mg tablet 20 mg PO DAILY #90 tab 10/06/20 omeprazole 20 mg capsule,delayed 20 mg PO DAILY #90 cap 12/17/20 release losartan 50 mg tablet 50 mg PO DAILY #90 tab 01/21/21 citalopram 10 mg tablet 10 mg PO DAILY #90 tab 03/12/21 acetaminophen 650 mg PO Q6H PRN 30 Days #240 tab 03/18/21 docusate sodium 100 mg PO BID #30 cap 03/18/21 enoxaparin 40 mg SUBCUT Q24H 56 Days #22.4 ml 03/18/21 oxycodone 5 mg PO Q4H PRN 7 Days #56 tab 03/18/21 DS: Summary Hospital Course Hospital Course: 66-year-old female who presented to the office with ongoing left hip pain. She was found have osteoarthritis of the left hip which affected her daily activities. She continued to have pain with ambulation after failing all conservative measures she agreed to move forward with left total hip arthroplasty. The patient underwent a successful arthroplasty, was transferred to PACU and then to the floor to recover. During their stay, their vitals were stable, afebrile at 97.1 . Labs were unremarkable, H/H 11.6/35.4 . POD 1 she was started on Lovenox for DVT ppx, they also received physical therapy and occupational therapy services twice a day. Prior to discharge, their dressing was change, incision clean dry and intact, new Aquacel dressing applied and the plan was to be discharged home with VNA services Time Spent with Patient Time attestation: Total time spent providing and/or coordinating discharge services: Discharge coordination time: Less than 30 minutes Quality: Stroke Does the patient have a stroke diagnosis?: No Physical Exam Vital Signs: Vital Signs: Last Vital Signs Temp 97.1 F 03/18/21 07:31 Pulse 77 03/18/21 07:31 Resp 16 03/18/21 07:31 BP 131/69 03/18/21 07:31 Pulse Ox 96 03/18/21 07:31 Body Mass Index 35.4 Const: General: cooperative, healthy appearing and no acute distress Resp: Effort & Inspection: normal respiratory effort and able to speak in complete sentences Cardio: Rate: regular rate Peripheral pulses: Peripheral pulses 2+ throughout GI: Palpation (GI): Soft to palpation Skin: General skin exam: no rashes or lesions noted Extrem: Other: incision clean dry and intact. Pao intact. No erythema or effusion. Calf supple nontender. Neurovascularly intact. DS: Data Data Completed and Pending Pending studies at discharge: Pending at discharge 03/16/21 11:23 Surgical [PTH] Routine Labs on day of discharge: Laboratory Results - last 24 hr 03/18/21 03/18/21 05:56 05:56 WBC 9.4 RBC 3.83 L Hgb 11.6 L Hct 35.4 L MCV 92.4 MCH 30.3 MCHC 32.8 RDW 12.3 Plt Count 168 D MPV 10.0 Immature Gran % (Auto) 0.4 Neut % (Auto) 79.4 H Lymph % (Auto) 11.9 L [place] % (Auto) 7.9 Eos % (Auto) 0.2 Baso % (Auto) 0.2 Lymph # (Auto) 1.1 L [place] # (Auto) 0.7 Eos # (Auto) 0.0 Baso # (Auto) 0.0 Abs Immat Gran (auto) 0.04 H Absolute Neuts (auto) 7.4 Absolute Nucleated RBC 0.000 Nucleated RBC % (auto) 0.0 Sodium 141 Potassium 3.5 Chloride 103 Carbon Dioxide 27 Anion Gap 15 BUN 6 L Creatinine 0.68 Estim Creat Clear Calc 83.8 Estimated GFR > 60 Fasting Glucose 130 H Calcium 8.7 D Discharge Plan Discharge Patient Disposition: Home Health Service Discharge Diagnosis: s/p lt marnie Referrals: Corey Perez PA-C [Physician [employer]] - 2 Weeks (04/01/21 1:[place] [facility] Core[place] Perez PA-C[place] Discharge Medications: New acetaminophen 325 mg Tablet 650 mg PO Q6H PRN (Reason: Pain, Mild (Pain Scale 1-3)) 30 Days Qty: 240 RF: 0 docusate sodium 100 mg Capsule 100 mg PO BID Qty: 30 RF: 0 oxycodone 5 mg Tablet 5 mg PO Q4H PRN (Reason: Pain, Moderate (Pain Scale 4-6) 7 Days Qty: 56 RF: 0 enoxaparin 40 mg/0.4 mL Syringe 40 mg subcut Q24H 56 Days Qty: 22.4 RF: 0 Continued atorvastatin 20 mg tablet 20 mg PO DAILY Qty: 90 RF: 3 omeprazole 20 mg capsule,delayed release(DR/EC) 20 mg PO DAILY Qty: 90 RF: 3 losartan 50 mg tablet 50 mg PO DAILY Qty: 90 RF: 3 citalopram 10 mg tablet 10 mg PO DAILY Qty: 90 RF: 3 budesonide-formoterol [Symbicort] 80-4.5 mcg/actuation HFA aerosol inhaler 2 puff PO BID RF: 0 timolol maleate 0.5 % drops 1 drp ophthalmic (eye) DAILY@0630 RF: 0 latanoprost 0.005 % drops 1 drp ophthalmic (eye) BEDTIME RF: 0 Discharge Orders: Discharge Order (Routine); Ordered 03/18/21 Ordered By: Corey Perez Diet: regular diet Activity on Discharge: Use cane or walker Stand Alone Forms: Patient Portal Discharge page Care Plan Goals: Restore function of joint Health Concerns: none Plan of Treatment: Physical Therapy Pain management DVT prophylaxis Assessment: * Physical Therapy for Total hip arthroplasty: posterior precautions, gait training, ROM, strength * Limit stair climbing * No showering, no tub bath-keep dressing clean, dry and intact * No driving x6 weeks * Continue Lovenox x 6 weeks * [place] [facility] [place] [facility] [place]
[2021-03-18] MEDS: oxyCODONE HCl Immed Release 5 MG TABLET PO (08:52)
[2021-03-18] MEDS: Acetaminophen 325 MG TABLET 650 MG PO (08:52)
[2021-03-18] MEDS: Docusate Sodium 100 MG CAPSULE PO (08:52)
[2021-03-18] MEDS: Escitalopram Oxalate 5 MG TABLET PO (08:52)
[2021-03-18] MEDS: timoloL maleate 0.5 % Oph Sol 5 ML DRBTL 1 DROP EYE-BOTH (08:52)
[2021-03-18] MEDS: Enoxaparin Sodium 40 MG/0.4 ML SYRINGE SUBCUT (08:53)
[2021-03-18] MEDS: oxyCODONE HCl ER 10 MG TAB.ER.12H PO (08:53)
[2021-03-18] MEDS: Celecoxib 200 MG CAPSULE PO (09:04)
[2021-03-18] MEDS: Losartan Potassium 50 MG TABLET PO (09:05)
--- NOTE | 2021-03-18 09:16 | MHC.CM.PN ---
PATIENT IS RETURNING HOME WITH [facility] FOR HOME P.T. AND O.T. FAMILY TO TRANSPORT. RN AWARE OF PLAN.
--- NOTE | 2021-03-18 09:23 | P.F2F_ITS ---
Service Date Service Date: 03/18/21 Encounter Encounter: Pt. is considered homebound due to recent surgery. Unable to drive, poor balance, poor gait mechanics. Reasons for Services Reason for physical therapy: home safety and mobility, therapeutic exercises, restore joint function, gait/transfer training, assess need for DME and ADL training Reason for occupational therapy: home safety and mobility, therapeutic exercises, restore joint function, gait/transfer training, assess need for DME and ADL training Homebound: Leaving the home is medically contraindicated at this time without the asist of a device and/or another person due th the listed conditions above and below. Reason homebound: unsteady gait / fall risk, fall risk related to blood pressure changes, leg weakness, pain with ambulation, pain with transfers, poor balance / fall risk and unable to drive Homebound supporting statement: Pt. is considered homebound due to recent surgery. Unable to drive, poor balance, poor gait mechanics. Certification: Based on the above findings, I certify that this patient is confined to the home and needs intermittent correction care, physical therapy and/or speech therapy, or continues to need occupational therapy. The patient is under my care, and I have initiated the establishment of the plan of care. The patient will be followed by a physician who will periodically review the plan of care.
[2021-03-18 09:26] VITALS: BP 131/69; PULSE 77; O2SAT 96
== END 2021-03-18 11:50 | disposition home health service (06) | DRG 470 ==
LOC: HO.SSSA 07:43 → HO.S3 16:18
PROVIDERS: Orthopaedic Surgery; Admitting Provider Physician Assistant; PCP Internal Medicine; Visit Provider Physician Assistant
PROC: 0SRB0JA Replacement of Left Hip Joint with Synthetic Substitute, Uncemented, Open Approach (ICD-10-PCS; CPT 27130; principal; 2021-03-16 10:00)
DX: M16.12 Unilateral primary osteoarthritis, left hip (principal); K21.9 Gastro-esophageal reflux disease without esophagitis; H40.9 Unspecified glaucoma; E78.5 Hyperlipidemia, unspecified; I10 Essential (primary) hypertension; Z20.822 Contact with and (suspected) exposure to COVID-19; Z88.0 Allergy status to penicillin; Z79.899 Other long term (current) drug therapy
CPT/HCPCS: 36415; 72170; 80048; 80053; 80061; 84443; 85025; 85027; 86850; 86900; 86901; 87635; 87640; 87641; 88304; 88311; 93005; 97110; 97116; 97162; 97166; 97535; C1713; C1776; J0131; J1100; J1170; J1650; J2405; J3010

== ENCOUNTER → 2021-04-01 12:50 | Outpatient (BNVA) | payer OTHER, SELFPAY | PROVIDERS: PCP Internal Medicine; Visit Provider Physician Assistant ==

== ENCOUNTER 2021-04-29 08:55 | Outpatient (REF) | payer OTHER, SELFPAY ==
--- NOTE | ~2021-04-29 | XR_ITS ---
EXAMINATION: XR AP PELVIS XR HIP, LEFT CLINICAL INFORMATION: Left hip pain COMPARISON: 03/16/2021 TECHNIQUE: AP pelvis and single crosstable lateral view of the right hip. FINDINGS: There is no evidence of acute fracture or diastases of the pelvis. No destructive bone lesions identified. Left hip joint space is narrowed axially. Some subchondral cyst formation is seen about the femoral head or acetabulum but without significant sclerosis or deformity. No destructive bone lesions are appreciated. There is narrowing of the L5-S1 disc space. No significant sacroiliac joint abnormalities appreciated. Views of the left hip demonstrate patient to be status post left total hip arthroplasty. The acetabular and femoral components appear to be in good position. No acute fracture is identified. No dislocation is seen. No evidence of loosening. XR/XR pelvis 1-2V IMPRESSION: No acute fracture or diastases of the pelvis. No abnormality in appearance of left total hip arthroplasty. Degenerative disc disease L5-S1.
--- NOTE | ~2021-04-29 | XR_ITS ---
EXAMINATION: XR AP PELVIS XR HIP, LEFT CLINICAL INFORMATION: Left hip pain COMPARISON: 03/16/2021 TECHNIQUE: AP pelvis and single crosstable lateral view of the right hip. FINDINGS: There is no evidence of acute fracture or diastases of the pelvis. No destructive bone lesions identified. Left hip joint space is narrowed axially. Some subchondral cyst formation is seen about the femoral head or acetabulum but without significant sclerosis or deformity. No destructive bone lesions are appreciated. There is narrowing of the L5-S1 disc space. No significant sacroiliac joint abnormalities appreciated. Views of the left hip demonstrate patient to be status post left total hip arthroplasty. The acetabular and femoral components appear to be in good position. No acute fracture is identified. No dislocation is seen. No evidence of loosening. XR/XR hip LT 1V IMPRESSION: No acute fracture or diastases of the pelvis. No abnormality in appearance of left total hip arthroplasty. Degenerative disc disease L5-S1.
== END 2021-04-29 08:56 | disposition home or self-care (01) ==
LOC: HO.HOSX 08:55
PROVIDERS: Visit Provider Orthopaedic Surgery
DX: Z47.1 Aftercare following joint replacement surgery (principal); Z96.642 Presence of left artificial hip joint
CPT/HCPCS: 72170; 73501

== ENCOUNTER 2021-05-25 07:00 | Outpatient (RCR) | payer OTHER, SELFPAY ==
--- NOTE | 2021-04-05 09:15 | MHC.PT.EP ---
[facility] [place] Office [place] Office [place] Office [address] Teto Banegas [address] [phone] F: [phone] F: [phone] F: [phone] F: [phone] Physical Therapy Plan of Care Date of Evaluation: Date of Surgery: 03/16/21 Diagnosis: S/P LEFT DANNY- POSTERIOR APPROACH Assessment: 66 YO FEMALE S/P LEFT POSTERIOR APPROACH THR 03/16/[address] BERNAL- SHE HAD [facility] SERVICES THROUGH 04/02/21. Pt CURRENTLY AMB W A CANE- SHE HAS Lt > Rt DISTAL LE PITTING EDEMA. 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 FUNCTIONALLY, Pt IS AMB W A CANE- SHE HAS DECR TOE OFF ROGELIO, INCR EFFORT W TRANSFERS AND BED MOB, NOT CLEARED FOR DRIVING, STAIR MGMT ONE AT A TIME, AND CURRENT POST OP DECR ACTIVITY JOHNNY. Pt IS A GOOD PT CANDIDATE TO GUIDE HER ALONG HER POST-OP COURSE. Frequency and Duration: The patient will be seen 2x WK x 5 WKS Short Term Goals: Pt'S LEFT LE PAIN DECR TO 2/10 W REG ADLs IN 2 WKS Pt INDEP W POSTERIOR APPROACH Lt THR PRECAUTIONS/ POSITIONING, SELF MGMT OF DISTAL LE EDEMA IN 1 WK Mcfp Goals: Pt INDEP W ADLs , FUNCT MOB ON STAIRS AND LEVEL- AMB W LRAD IN 5 WKS Pt DEMON WFL STRENGTH IN LEFT LE IN 5 WKS Pt'S LEFT SCORE IMPROVE BY 10 POINTS (AT EVAL 32/80) IN 5 WKS Pt RTW W MD CLEARANCE IN 5 WKS Treatment Plan: Modalities to reduce pain, spasms and effusion. Manual therapy to restore motion and function. Therapeutic exercise to improve strength and flexibility. Neuromuscular re-education for posture and balance. Therapeutic activities to return to functional activities of daily living. Electronically signed by: Ayah Fair,PT Please sign and return to therapist. Thank you for your referral.
--- NOTE | 2021-05-25 07:54 | MHC.PT.DC ---
[facility] [place] Office [place] Office [place] Office [address] Teto Banegas [address] [phone] F: [phone] F: [phone] F: [phone] F: [phone] Physical Therapy Discharge Report Diagnosis: S/P LEFT DANNY- POSTERIOR APPROACH Date of Surgery: 03/16/21 Date of Evaluation: 04/05/21 Date of Discharge: 05/25/21 Treatments to Date: 12 Cancellations to Date: 0 No Shows to Date: 0 Discharge Status: Achieved Goals Improved Function Independent with HEP Discharge Summary: Pt PROGRESSED VERY WELL IN PT, SHE MET HER GOALS, EVIDENT W LEFT SCORE OF 61/80 (AT EVAL 32/80), HE CORE AND LEFT LE STRENGTH HAS IMPROVED, SHE DEMON INDEP / APPROP GAIT W/O HER CANE (ONLY USING CANE IN LARGE CROWDS). HER LEFT HIP PAIN HAS RESOLVED. SHE REMAINS MOTIVATED AND COMPLIANT W HEP - READY FOR D/C AT THIS TIME- Electronically signed by: Ayah Fair,PT Please sign and return to therapist. Thank you for your referral.
== END 2021-05-25 07:54 | disposition home or self-care (01) ==
LOC: HO.PT 07:00
PROVIDERS: Visit Provider Orthopaedic Surgery
DX: Z96.642 Presence of left artificial hip joint (principal)
CPT/HCPCS: 97110; 97112; 97140; 97161; 97530

== ENCOUNTER → 2021-06-17 13:35 | Outpatient (BNVA) | payer OTHER, SELFPAY | PROVIDERS: Visit Provider Orthopaedic Surgery ==

== ENCOUNTER 2021-08-19 08:09 | Outpatient (REF) | payer OTHER, SELFPAY ==
--- NOTE | ~2021-08-19 | MM_ITS ---
EXAMINATION: MM SCREENING DIGITAL BREAST TOMOSYNTHESIS, BILATERAL CLINICAL INFORMATION: Screening. Asymptomatic. The lifetime risk of breast cancer based on the Tyrer-Cuzick Model is 5%. COMPARISON: Mammography: 08/08/2020, 08/03/2019, 06/29/2018 TECHNIQUE: Digital breast tomosynthesis is performed in both the craniocaudal and mediolateral oblique views along with computer-aided detection (CAD). Synthesized 2D images are generated from the tomosynthesis. FINDINGS: The breasts are almost entirely fatty (ACR BI-RADS breast composition Category a). There are no significant masses, abnormal calcifications, or other abnormalities. There is a dermal lesion mid inferior right breast on tomography again noted. Stromal markings are similar to prior studies. The axilla are unremarkable. No significant changes. MM/MM tomosynthesis screening BI IMPRESSION: No mammographic evidence of malignancy. ASSESSMENT: BI-RADS 2: Benign RECOMMENDATION: Routine annual mammography screening. This patient's information was entered into a reminder system with a target due date for their next mammogram.
== END 2021-08-19 08:10 | disposition home or self-care (01) ==
LOC: HO.MAMMO 08:09
PROVIDERS: Visit Provider Internal Medicine
DX: Z12.31 Encounter for screening mammogram for malignant neoplasm of breast (principal)
CPT/HCPCS: 77063; 77067

== ENCOUNTER 2021-09-08 08:40 | Emergency (ER) | payer OTHER, SELFPAY ==
--- NOTE | ~2021-09-08 | XR_ITS ---
EXAMINATION: XR RIBS, LEFT CLINICAL INFORMATION: Fall COMPARISON: 11/22/2018 TECHNIQUE: PA view of the chest and 3 views of the left ribs were obtained. FINDINGS: Cardiomediastinal silhouette is normal. Some linear scarring/atelectasis in left lung base. No consolidation, pleural effusion or pneumothorax. No displaced rib fractures. XR/XR ribs LT min 3V w CXR1V IMPRESSION: No acute cardiopulmonary process. No displaced rib fractures.
--- NOTE | ~2021-09-08 | CT_ITS ---
EXAMINATION: CT BRAIN, CT CERVICAL SPINE, CT FACIAL BONES WITHOUT CONTRAST. CLINICAL INFORMATION: Fall. Left forearm hematoma. COMPARISON: None TECHNIQUE: 5 mm thin axial and reformatted 2 mm thin sagittal and coronal images of cervical spine were obtained without contrast. Subsequently axial 3 mm thin and reformatted 1.5 mm thin sagittal and coronal images of facial bones were obtained. Lastly axial 3 mm thin and reformatted 2 mm thin sagittal and coronal images of cervical spine were obtained without contrast. DLP with chest CT is 17 0 6 mg. FINDINGS: Brain: There is no acute intra-axial, extra-axial bleed, masses or midline shift. There is no acute infarct in evolution. There is no edema. The kim to white matter differentiation is maintained normal. The lateral ventricles are symmetrical but slightly enlarged. The cortical sulci are mildly prominent. No abnormality seen in the posterior fossa. Bone windows reveal no calvarial abnormality. There is minimal left frontal scalp soft tissue swelling. Bilateral paranasal sinuses and mastoid air cells are well-aerated. Cervical spine: There is normal cervical lordosis. The vertebral alignment is normal. There is loss of cc 4-C5, C5-C6 and C6-C7 disc levels with posterior spondylosis. The craniovertebral junction and the C1-C2 alignment is normal. There is no visible acute fracture, dislocation or subluxation. and paravertebral soft tissues are normal normal. There is mild narrowing of left neural foramina at C3-C4 right neuroforamina at C4-C5 bilaterally at C5-C6 disc levels from facet joint arthropathy and hypertrophy. The airway is widely patent visualized bilateral parotid, submandibular and thyroid glands are unremarkable. The lung apices are clear. Facial bones: The paranasal sinuses are well-aerated and clear. The bony sinus dominguez are intact. Maxillofacial and nasal bones are intact as well. Bilateral TM joints are symmetrical and normal. There is no visible mandibular fracture. The oral cavity is limited in evaluation secondary to dental amalgam artifact. The premaxillary and premandibular soft tissues are normal. The airway is widely patent. CT/CT cervical spine wo con IMPRESSION: Minimal left frontal scalp soft tissue swelling. No calvarial fracture. No acute intracranial process. No acute fracture or dislocation in cervical spine. There are degenerative disc changes and posterior spondylosis of cervical spine. There is no acute fracture or bony abnormality involving the facial bones.
--- NOTE | ~2021-09-08 | XR_ITS ---
EXAMINATION: XR KNEE, LEFT CLINICAL INFORMATION: Left knee pain. Fall. COMPARISON: 10/08/2020 TECHNIQUE: Four views of the left knee. FINDINGS: No fracture or subluxation. Compartmental joint spaces are maintained. No joint effusion. Enthesophyte formation of the patella. The soft tissues are unremarkable. XR/XR knee LT 4V IMPRESSION: No acute abnormality of the left knee.
--- NOTE | ~2021-09-08 | CT_ITS ---
EXAMINATION: CT CHEST WITHOUT CONTRAST CLINICAL INFORMATION: Fall. Question rib fracture. COMPARISON: Previous chest and left rib x-rays from earlier the same day TECHNIQUE: Multidetector volumetric CT imaging of the chest was done. Axial MIP volume rendering provided. Sagittal and coronal reformatted images were obtained. This CT examination was performed using dose optimization techniques as appropriate, variously including the following: *Automated exposure control *Adjustment of mA and/or kV according to patient size (this includes techniques or standardized protocols for targeted exams where dose is matched to indication/reason for exam; i.e. extremities or head) *Use of iterative reconstruction technique DLP: 348 mGy-cm FINDINGS: LUNGS: There are scattered small pulmonary nodules or micronodules. Largest pulmonary nodule measures 3 mm in the left lower lobe axial image 198, 225 320 series 33. There are scattered areas of mild bronchial wall thickening and some bronchial soft tissue opacification suggestive of mild airways disease. There are scattered areas of increased linear markings suggestive of scarring or subsegmental atelectasis. MEDIASTINUM: There is a large esophageal hernia. There is evidence of atherosclerotic disease and mild coronary artery calcification. The mediastinum is otherwise normal. PLEURA: There is no pleural effusion. No pleural mass or thickening. No pneumothorax. AXILLA: No lymphadenopathy. UPPER ABDOMEN: Unremarkable. OSSEOUS STRUCTURES: No rib fracture is seen. There are mild degenerative changes of the thoracic spine. CT/CT chest wo con IMPRESSION: No acute findings. No rib fracture. Large esophageal hernia. Small pulmonary nodules or micronodules. According to the UPDATED 2017 Fleischner Society recommendations, the advised follow-up imaging for less than 6 mm nodule: Low risk, no chest CT follow-up and high risk, optional chest CT follow-up. Fleischner guidelines were followed.
[2021-09-08 08:52] VITALS: BP 139/91; PULSE 80; RESP 19; TEMP 36.1; O2SAT 98; BMI 34.0
--- NOTE | 2021-09-08 10:41 | ED.FALL ---
HPI - Fall General Chief Complaint: Fall Stated Complaint: fall l side inj rib Time Seen by Provider: 09/08/21 11:23 Source: patient Mode of arrival: ambulatory Limitations: no limitations History of Present Illness HPI Narrative: This 66-year-old female presents to the ED for mechanical fall that occurred this morning while in the parking lot. Patient states she tripped over the edge she deniedfell onto her left chest and hit her left forehead and left knee. Patient denies any abdominal pain, nausea, vomiting, rectal bleeding, vomiting/coughing up blood, headache, or dizziness. Patient states pain only in left frontal area. Patient states not being on any blood thinner. Patient states left chest wall pain on movement. Patient denies having any chest pain, headache, dizziness, nausea, vomiting, or abdominal pain before falling. Patient clearly states she tripped and fell. MD complaint: fall Related Data Home Medications Medication Instructions Recorded Confirmed latanoprost 0.005 % eye drops 1 drp OPHTHALMIC (EYE) BEDTIME 12/30/20 03/02/21 timolol maleate 0.5 % eye drops 1 drp OPHTHALMIC (EYE) DAILY@0630 12/30/20 03/02/21 budesonide-formoterol HFA 80 2 puff PO BID 03/17/21 03/17/21 mcg-4.5 mcg/actuation aerosol inhaler (Symbicort) albuterol sulfate 90 mcg/actuation 0 mcg INHALATION 04/29/21 aerosol inhaler Previous Rx's Medication Instructions Recorded omeprazole 20 mg capsule,delayed 20 mg PO DAILY #90 cap 12/17/20 release citalopram 10 mg tablet 10 mg PO DAILY #90 tab 03/12/21 acetaminophen 325 mg tablet 650 mg PO Q6H PRN 30 Days #240 tab 03/18/21 docusate sodium 100 mg capsule 100 mg PO BID #30 cap 03/18/21 enoxaparin 40 mg/0.4 mL 40 mg (0.4 mL) SUBCUT Q24H 56 Days 03/18/21 subcutaneous syringe #22.4 ml oxycodone 5 mg tablet 5 mg PO Q6H PRN 7 Days #28 tab 04/14/21 clindamycin HCl 300 mg capsule 600 mg PO ONCE #2 cap 06/17/21 atorvastatin 20 mg tablet 20 mg PO DAILY #90 tab 07/09/21 losartan 50 mg tablet 50 mg PO DAILY #90 tab 08/06/21 naproxen 500 mg tablet 500 mg PO BID PRN 10 Days #20 tab 09/08/21 prednisone 20 mg tablet 40 mg PO DAILY 5 Days #10 tab 09/08/21 Allergies Allergy/AdvReac Type Severity Reaction Status Date / Time amoxicillin [AMOXICILLIN] Allergy Intermediate HIVES Verified 06/17/21 13:40 latex Allergy Intermediate Redness of Verified 06/17/21 13:40 Skin, irritation Review of Systems Review of Systems: Only symptoms of left knee pain, left chest pain left rib pain, and left frontal head pain Yes all other systems are reviewed and are negative [facility] Past Medical History Medical History Annual physical exam Anxiety Ramon's esophagus COVID-19 vaccine series completed Elevated LFTs Glaucoma HLD (hyperlipidemia) HTN (hypertension) Hypercholesterolemia Knee pain, chronic Nevus Osteoarthritis of hips, bilateral Plantar fasciitis of left foot Postmenopausal Surgical History H/O colonoscopy History of esophagogastroduodenoscopy (EGD) Hx of eye surgery Family History Family History Father Bladder cancer Mother No problems noted. Maternal Grandmother COPD (chronic obstructive pulmonary disease) Myocardial infarction Maternal Grandfather No problems noted. Paternal Grandfather No problems noted. Paternal Grandmother No problems noted. 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 Small hematoma with tenderness on palpation. Negative for any crepitus. Rest of HEENT normal Ears: hearing grossly normal bilaterally, external ears normal, TM's normal bilaterally, EAC's normal, mastoids normal and no periauricular adenopathy Eyes: General: appearance normal, both eyes and all related structures Neck: Neck: Yes normal visual inspection, Yes full ROM, Yes no lymphadenopathy, Yes no meningeal signs, Yes trachea midline, Yes supple, No anterior neck swelling and No tender Chest: Chest palpation & inspection: normal inspection of the chest Chest/axillae images: 1. Positive for chest wall tenderness on palpation. 2. Positive for tenderness of lower rib on palpation Resp: Effort & Inspection: normal respiratory effort and able to speak in complete sentences Auscultation: clear to auscultation bilaterally Cardio: Jugular venous distension: no JVD Heart sounds: S1 normal heart sound present and S2 normal heart sound present GI: Inspection: Yes normal to inspection and No abdominal wall ecchymosis Palpation (GI): Soft to palpation, not firm, nontender, no guarding and not rigid : General: No CVA tenderness and Yes no CVA tenderness Back/Spine/Pelvis: Back: no CVA tenderness, No CVA tenderness and No back tenderness Skin: General skin exam: no rashes or lesions noted and elasticity normal Neuro: General: patient oriented x3, gait normal, no meningeal signs and CN's II-XI intact bilaterally Cranial nerves: Yes CN's II-XII intact bilaterally Extrem: General: Yes normal to inspection and Yes full ROM Knee images: 1. Positive for tenderness on palpation with abrasions. Negative for ecchymosis, deformity, elasticity. Popliteal pulses intact. Pedal pulses intact. Motor/neuro/vascular exam intact Psych: Appearance: grossly normal, well kempt and not disheveled Course Course Course Narrative: Patient will be sent for imaging. Patient had mechanical fall. No EKG or labs indicated Reevaluation(s) Reevaluation #1: patient all images came back normal. patient states not taking any blood thinners. patient given motrin and tyelnol. Patient states she is not taking any aspirin, Coumadin, Xarelto, Eliquis, or Lovenox Time: 12:43 MDM - Fall MDM Narrative Medical decision making narrative: Contusion. Full Discharge Plan Discharge Clinical Impression: Fall, Contusion Patient Disposition: Home, Self-Care Instructions: Head Injury (ED), Contusion in Adults (ED), Fall Prevention (ED) Additional Instructions: New images came back normal and negative for any fracture. Please follow-up with primary care provider. You will be discharged with pain medication and steroid. Return to the ED for any chest pain, shortness of breath, coughing up blood, abdominal pain, rectal bleeding, bloody urine, dizziness, headache, bleeding from ears, or any other concerning symptoms. Prescriptions: New prednisone 20 mg tablet 40 mg PO DAILY 5 Days Qty: 10 RF: 0 naproxen 500 mg tablet 500 mg PO BID PRN (Reason: pain) 10 Days Qty: 20 RF: 0 No Action omeprazole 20 mg capsule,delayed release(DR/EC) 20 mg PO DAILY Qty: 90 RF: 3 citalopram 10 mg tablet 10 mg PO DAILY Qty: 90 RF: 3 oxycodone 5 mg tablet 5 mg PO Q6H PRN (Reason: Pain, Moderate (Pain Scale 4-6) 7 Days Qty: 28 RF: 0 atorvastatin 20 mg tablet 20 mg PO DAILY Qty: 90 RF: 3 losartan 50 mg tablet 50 mg PO DAILY Qty: 90 RF: 3 budesonide-formoterol [Symbicort] 80-4.5 mcg/actuation HFA aerosol inhaler 2 puff PO BID RF: 0 acetaminophen 325 mg Tablet 650 mg PO Q6H PRN (Reason: Pain, Mild (Pain Scale 1-3)) 30 Days Qty: 240 RF: 0 docusate sodium 100 mg Capsule 100 mg PO BID Qty: 30 RF: 0 enoxaparin 40 mg/0.4 mL Syringe 40 mg subcut Q24H 56 Days Qty: 22.4 RF: 0 timolol maleate 0.5 % drops 1 drp ophthalmic (eye) DAILY@0630 RF: 0 latanoprost 0.005 % drops 1 drp ophthalmic (eye) BEDTIME RF: 0 albuterol sulfate 90 mcg/actuation HFA aerosol inhaler 0 mcg inhalation RF: 0 clindamycin HCl 300 mg capsule 600 mg PO ONCE Qty: 2 RF: 0 Interventions: ED Discharge Assessment Last Done: 09/08/21 13:15 Discharge Date/Time: 09/08/21 13:18 Print Language: Chinese
[2021-09-08] MEDS: Acetaminophen 325 MG TABLET 650 MG PO (12:27)
[2021-09-08] MEDS: Ibuprofen 800 MG TABLET PO (12:27)
--- NOTE | 2021-09-08 12:48 | PC.NURSE ---
PT HAD EXAMANATION PERFORMED BY EDWIN CARBAJAL, WITH RN WITNESS.
== END 2021-09-08 13:18 | disposition home or self-care (01) ==
PROVIDERS: Emergency Provider Emergency Medicine; PCP Internal Medicine
DX: S00.83XA Contusion of other part of head, initial encounter (principal); S20.212A Contusion of left front wall of thorax, initial encounter; S80.212A Abrasion, left knee, initial encounter; W01.0XXA Fall on same level from slipping, tripping and stumbling without subsequent striking against object, initial encounter; I10 Essential (primary) hypertension; E78.5 Hyperlipidemia, unspecified; Y93.01 Activity, walking, marching and hiking; Y92.481 Parking lot as the place of occurrence of the external cause; Y99.9 Unspecified external cause status
CPT/HCPCS: 70450; 70486; 71101; 71250; 72125; 73564; 99284

== ENCOUNTER 2021-09-21 06:25 | Outpatient (REF) | payer OTHER, SELFPAY ==
[2021-09-21 11:31] LABS: Hematocrit 40.8 % (37.0-47.0); Hemoglobin 13.1 g/dl (12.0-16.0); Mean Corpuscular HGB Conc 32.1 g/dl (31.0-35.0); Mean Corpuscular Hemoglobin 29.8 pg (27.0-33.0); Mean Corpuscular Volume 92.9 fL (80.0-98.0); Mean Platelet Volume 9.4 fL (9.4-12.3); Platelet Count 248 X10*3/uL (160-400); Red Blood Count 4.39 X10*6/uL (4.20-5.50); Red Cell Distribution Width 13.2 % (11.0-16.0); White Blood Count 4.8 X10*3/uL (4.8-10.8)
[2021-09-21 12:11] LABS: Alanine Aminotransferase 11 U/L (0-31); Albumin Level 3.9 g/dL (3.5-5.0); Alkaline Phosphatase 87 U/L (39-117); Anion Gap 14 (12-20); Aspartate Amino Transferase 12 U/L (5-31); Bilirubin Total 1.1 mg/dL (0.0-1.0); Blood Urea Nitrogen 10 mg/dL (9-16); Calcium 9.6 mg/dL (8.4-10.2); Carbon Dioxide 26 mmol/L (22-29); Chloride 105 mmol/L (96-108); Cholesterol 184 mg/dL; Estimated Glomerular Filt Rate > 60; Glucose Fasting 99 mg/dL (60-99); HDL Cholesterol 62 mg/dL; LDL Cholesterol Calculated 67 mg/dl; Sodium 141 mmol/L (135-145); Total Protein 6.3 g/dL (6.5-8.0); Triglycerides 277 mg/dL
== END 2021-09-21 06:26 | disposition home or self-care (01) ==
LOC: HO.HMGCLDS 06:25
PROVIDERS: Visit Provider Internal Medicine
DX: E78.00 Pure hypercholesterolemia, unspecified (principal); I10 Essential (primary) hypertension; R79.89 Other specified abnormal findings of blood chemistry
CPT/HCPCS: 36415; 80053; 80061; 85027

== ENCOUNTER 2022-03-25 07:42 | Outpatient (REF) | payer OTHER, SELFPAY ==
[2022-03-25 11:35] LABS: Estimated Average Glucose 108 mg/dL; Hemoglobin A1c % 5.4 %
[2022-03-25 12:06] LABS: Alanine Aminotransferase 21 U/L (0-31); Alkaline Phosphatase 65 U/L (39-117); Anion Gap 16 (12-20); Aspartate Amino Transferase 27 U/L (5-31); Bilirubin Total 0.9 mg/dL (0.0-1.0); Blood Urea Nitrogen 8 mg/dL (9-16); Calcium 8.3 mg/dL (8.4-10.2); Carbon Dioxide 26 mmol/L (22-29); Chloride 105 mmol/L (96-108); Cholesterol 194 mg/dL; Estimated Glomerular Filt Rate > 60; Glucose Fasting 109 mg/dL (60-99); HDL Cholesterol 63 mg/dL; LDL Cholesterol Calculated 103 mg/dl; Potassium 3.6 mmol/L (3.3-5.1); Sodium 143 mmol/L (135-145); Total Protein 6.3 g/dL (6.5-8.0); Triglycerides 144 mg/dL
== END 2022-03-25 07:43 | disposition home or self-care (01) ==
LOC: HO.HMGCLDS 07:42
PROVIDERS: Visit Provider Internal Medicine
DX: Z00.00 Encounter for general adult medical examination without abnormal findings (principal); R07.81 Pleurodynia; I10 Essential (primary) hypertension; E78.00 Pure hypercholesterolemia, unspecified
CPT/HCPCS: 36415; 80053; 80061; 83036

== ENCOUNTER 2022-08-24 08:17 | Outpatient (REF) | payer OTHER, SELFPAY ==
--- NOTE | ~2022-08-24 | MM_ITS ---
EXAMINATION: MM SCREENING DIGITAL BREAST TOMOSYNTHESIS, BILATERAL CLINICAL INFORMATION: Screening. Asymptomatic. The lifetime risk of breast cancer based on the Tyrer-Cuzick Model is 4.4%. COMPARISON: Mammography: 08/19/2021 and studies dating back to 06/03/2016. TECHNIQUE: Digital breast tomosynthesis is performed in both the craniocaudal and mediolateral oblique views along with computer-aided detection (CAD). Synthesized 2-D images are generated from the tomosynthesis. FINDINGS: The breasts are almost entirely fatty (ACR BI-RADS breast composition Category a). There is a stable parenchymal pattern of the right breast. About the inferior medial aspect of the left breast, there is a density with 3 peripheral rounded calcifications without linear or branching forms on craniocaudal view with the density being present on prior examinations. On mediolateral oblique view, the calcifications appear to lie within a vessel. This has a benign appearance. MM/MM tomosynthesis screening BI IMPRESSION: No mammographic evidence of malignancy. ASSESSMENT: BI-RADS 2: Benign RECOMMENDATION: Routine annual mammography screening. This patient's information was entered into a reminder system with a target due date for their next mammogram.
== END 2022-08-24 08:18 | disposition home or self-care (01) ==
LOC: HO.MAMMO 08:17
PROVIDERS: PCP Internal Medicine; Visit Provider Internal Medicine
DX: Z12.31 Encounter for screening mammogram for malignant neoplasm of breast (principal)
CPT/HCPCS: 77063; 77067

== ENCOUNTER 2022-11-04 09:06 | Outpatient (REF) | payer OTHER, SELFPAY ==
[2022-11-04 11:33] LABS: MANUAL DIFF FLAG NO
[2022-11-04 11:52] LABS: Eosinophils Absolute Auto 0.1 X10*3/uL (0.0-0.4); Hematocrit 42.4 % (37.0-47.0); Hemoglobin 14.1 g/dl (12.0-16.0); Imm Gran Abs Auto 0.01 X10*3/uL (0.00-0.03); Imm Gran Pct Auto 0.3 % (0.0-0.4); Lymphocytes Absolute Auto 1.2 X10*3/uL (1.2-4.9); Lymphocytes Percent Auto 30.7 % (20-40); Mean Corpuscular HGB Conc 33.3 g/dl (31.0-35.0); Mean Corpuscular Hemoglobin 31.3 pg (27.0-33.0); Mean Platelet Volume 9.5 fL (9.4-12.3); Monocytes Absolute Auto 0.4 X10*3/uL (0.1-1.2); Monocytes Percent Auto 8.8 % (2-11); Neutrophils Absolute Auto 2.3 x10*3/uL (2.0-8.3); Neutrophils Percent Auto 57.2 % (45-73); Platelet Count 154 X10*3/uL (160-400); Red Blood Count 4.51 X10*6/uL (4.20-5.50); Red Cell Distribution Width 13.4 % (11.0-16.0)
[2022-11-04 12:25] LABS: Estimated Average Glucose 108 mg/dL; Hemoglobin A1c % 5.4 %
[2022-11-04 12:44] LABS: Alanine Aminotransferase 35 U/L (0-31); Albumin Level 3.9 g/dL (3.5-5.0); Alkaline Phosphatase 80 U/L (39-117); Anion Gap 15 (12-20); Aspartate Amino Transferase 40 U/L (5-31); Bilirubin Total 1.5 mg/dL (0.0-1.0); Blood Urea Nitrogen 6 mg/dL (9-16); Calcium 8.5 mg/dL (8.4-10.2); Carbon Dioxide 25 mmol/L (22-29); Chloride 106 mmol/L (96-108); Estimated Glomerular Filt Rate > 60; Glucose Fasting 102 mg/dL (60-99); Potassium 3.7 mmol/L (3.3-5.1); Sodium 142 mmol/L (135-145)
== END 2022-11-04 09:07 | disposition home or self-care (01) ==
LOC: HO.HMGCLDS 09:06
PROVIDERS: PCP Internal Medicine; Visit Provider Internal Medicine
DX: E78.00 Pure hypercholesterolemia, unspecified (principal); I10 Essential (primary) hypertension; R73.9 Hyperglycemia, unspecified
CPT/HCPCS: 36415; 80053; 83036; 85025

== ENCOUNTER 2023-01-27 08:40 | Outpatient (REF) | payer OTHER, SELFPAY ==
--- NOTE | ~2023-01-27 | US_ITS ---
EXAMINATION: US ABDOMEN COMPLETE CLINICAL INFORMATION: Elevated LFTs. COMPARISON: None available. TECHNIQUE: Real-time imaging of the abdominal viscera. FINDINGS: PANCREAS: Normal. ABDOMINAL AORTA: The proximal and mid segments are largely obscured by overlapping bowel gas. The distal segment is nonaneurysmal. INFERIOR VENA CAVA: Visualized portions are normal. LIVER: There is borderline hepatomegaly, with a longitudinal span of 17.2 cm. The liver contour is normal. Parenchymal echogenicity is generally increased. No focal hepatic lesion. There is no intrahepatic biliary duct dilatation seen. GALLBLADDER: Normal. The gallbladder is physiologically distended without evidence of stones, sludge, polyps, wall thickening or pericholecystic fluid. COMMON BILE DUCT: Normal in caliber measuring 0.3 cm in diameter. RIGHT KIDNEY: Normal. No hydronephrosis. No renal calculi or focal parenchymal lesions. The kidney measures 10.6 cm in maximum dimension. LEFT KIDNEY: Normal. No hydronephrosis. No renal calculi or focal parenchymal lesions. The kidney measures 10.8 cm in maximum dimension. SPLEEN: No focal finding. The spleen measures 7.9 cm in maximum dimension. FREE FLUID: None. US/US abdomen complete IMPRESSION: 1. There is borderline hepatomegaly. 2. There is generalized increase in hepatic echotexture, consistent with fatty infiltration or hepatocellular disease. Please correlate clinically. No focal hepatic mass or intrahepatic biliary dilatation is seen. 3. Technically limited ultrasound examination of the abdominal aorta.
[2023-01-27 11:58] LABS: D Dimer High Sensitivity < 150 NG/ML
[2023-01-27 12:36] LABS: B Type Natriuretic Peptide 50 pg/mL (<100)
[2023-01-27 12:51] LABS: Alanine Aminotransferase 23 U/L (0-31); Albumin Level 3.9 g/dL (3.5-5.0); Alkaline Phosphatase 68 U/L (39-117); Anion Gap 14 (12-20); Aspartate Amino Transferase 31 U/L (5-31); Bilirubin Total 1.4 mg/dL (0.0-1.0); Blood Urea Nitrogen 5 mg/dL (9-16); Calcium 7.9 mg/dL (8.4-10.2); Carbon Dioxide 30 mmol/L (22-29); Chloride 103 mmol/L (96-108); Estimated Glomerular Filt Rate > 60; Glucose Random 103 mg/dL (60-115); Sodium 144 mmol/L (135-145); Total Protein 6.2 g/dL (6.5-8.0)
[2023-01-27 14:30] LABS: HBS Num1 0.04 mIU/mL (0-7.99); HBc Num1 0.07 S/CO (0.00-0.79); HBsAGNum1 0.34 S/CO (0.00-0.99); Hepatitis B Core Antibody Nonreactive (Nonreactive); Hepatitis B Surface Antigen Negative (Negative); ~HepC Num1 0.07 S/CO (0.00-0.79); ~Hepatitis B Surface Antibody NONREACTIVE (Nonreactive); ~Hepatitis C Antibody Nonreactive (Nonreactive)
[2023-01-30 13:18] LABS: Alpha Fetoprotein 5.7 ng/mL
== END 2023-01-27 08:41 | disposition home or self-care (01) ==
LOC: HO.HMGCX 08:40
PROVIDERS: PCP Internal Medicine; Visit Provider Internal Medicine
DX: R60.9 Edema, unspecified (principal); R79.89 Other specified abnormal findings of blood chemistry
CPT/HCPCS: 36415; 76700; 80053; 82105; 83880; 85379; 86704; 86706; 86803; 87340

== ENCOUNTER 2023-02-04 08:41 | Outpatient (REF) | payer OTHER, SELFPAY ==
[2023-02-04 12:13] LABS: Potassium 3.7 mmol/L (3.3-5.1)
[2023-02-04 12:20] LABS: Magnesium 1.1 mg/dL (1.6-2.6)
== END 2023-02-04 08:42 | disposition home or self-care (01) ==
LOC: HO.HMGCLDS 08:41
PROVIDERS: PCP Internal Medicine; Visit Provider Internal Medicine
DX: E87.6 Hypokalemia (principal)
CPT/HCPCS: 36415; 83735; 84132

== ENCOUNTER 2023-02-09 06:41 | Outpatient (REF) | payer OTHER, SELFPAY ==
[2023-02-09 09:43] LABS: Potassium 3.5 mmol/L (3.3-5.1)
[2023-02-09 10:54] LABS: Magnesium 1.2 mg/dL (1.6-2.6)
== END 2023-02-09 06:42 | disposition home or self-care (01) ==
LOC: HO.HMGCLDS 06:41
PROVIDERS: PCP Internal Medicine; Visit Provider Internal Medicine
DX: E83.41 Hypermagnesemia (principal); E87.6 Hypokalemia
CPT/HCPCS: 36415; 83735; 84132

== ENCOUNTER 2023-02-13 10:38 | Outpatient (REF) | payer OTHER, SELFPAY ==
[2023-02-13 14:26] LABS: Magnesium 1.4 mg/dL (1.6-2.6); Phosphorus 3.8 mg/dL (2.7-4.5); Potassium 3.9 mmol/L (3.3-5.1)
== END 2023-02-13 10:39 | disposition home or self-care (01) ==
LOC: HO.HMGCLDS 10:38
PROVIDERS: PCP Internal Medicine; Visit Provider Internal Medicine
DX: E83.41 Hypermagnesemia (principal); E83.42 Hypomagnesemia; E87.6 Hypokalemia
CPT/HCPCS: 36415; 83735; 84100; 84132

== ENCOUNTER → 2023-02-14 07:58 | Outpatient (REF) | payer OTHER, SELFPAY ==
--- NOTE | 2023-02-14 08:01 | CA_ITS ---
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 The visually estimated ejection fraction is between 50-55%. - Possible basal infero-lateral hypokinesis but difficult to assess. - No obvious valvular pathology seen on this study. Findings Procedure Information Contrast agent, definity, is being given per protocol without apparent complications. Left Ventricle Normal left ventricular cavity size. The left ventricular systolic function is low normal. The visually estimated ejection fraction is between 50-55%. Diastolic function is normal for age. There is mild septal asymmetric hypertrophy. Possible basal infero-lateral hypokinesis but difficult to assess. Right Ventricle Normal right ventricular cavity size. There is low normal right ventricular systolic function. Atria Both atria are normal in size. Aortic Valve There is a normal trileaflet aortic valve. There is no aortic valve stenosis. There is no aortic valve regurgitation. Mitral Valve The mitral valve appears normal. There is no mitral valve regurgitation. There is no mitral valve stenosis. Pulmonic Valve The pulmonic valve is likely normal. Tricuspid Valve There is trace tricuspid valve regurgitation. There is no evidence of pulmonary hypertension. Great Vessels The asc aorta is normal in size. Venous The inferior vena cava is normal in size and collapses greater than 50% with inspiration. Pericardium/Pleural There is no evidence of pericardial effusion. Prior Study Comparison Changes noted compared to prior study dated: 06/15/2012. slightly diminished LVEF. Recommendations, Care & Conclusions No obvious valvular pathology seen on this study. Measurements 2D Linear Measurements IVSd: 1.05 0.6-0.9/0.6-1.0 cm LVIDd: 4.58 3.9-5.3/4.2-5.9 cm LVIDd Index: 2.50 2.4-3.2/2.2-3.1 cm/m2 LVIDs: 3.47 2.0-3.6 cm LVPWd: 0.87 0.7-1.1 cm LA Diam: 3.40 2.7-3.8/3.0-4.0 cm LAIDs Index: 1.86 1.5-2.3 cm/m2 LV Mass: 185.43 67-162/88-224 g LV Mass Index: 101.33 43-95/49-115 g/m2 LVOT Diam: 2.00 3.0+(-)1.3 cm 2D Systolic Function EF 4C: 54.80 >55% EF 2C: 62.60 >55% EF BiP: 59.00 >55% Mitral Valve MV VTI: 0.24 MV Pk Didier: 0.99 MV Mn Didier: 0.55 MV Pk Grad: 4.00 MV Mn Grad: 1.00 MV Pk E: 0.39 MV PK A: 0.78 MV Decel Time: 201.00 E/A: 0.50 E'Lateral: 5.11 E'Medial: 4.24 E/E' Med: 9.20 E/E' Lat: 7.60 PHT: 59.00 MVA PHT: 3.73 MVA Continuity: 2.16 Decel [place]: 1.94 Aortic Valve AoV Pk Didier: 1.13 AoV Mn Didier: 0.81 AoV VTI: 0.24 AoV Pk Grad: 5.00 Aov Mn Grad: 3.00 JANE Cont.VTI: 2.14 LVOT LVOT Pk Didier: 0.74 LVOT Mn Didier: 0.51 LVOT VTI: 0.16 LVOT Pk Grad: 2.00 LVOT Mn Grad: 1.00 LVOT Diam: 2.00 LVOT Area: 3.14 Diastolic Function MV Pk E: 0.39 MV Pk A: 0.78 E/A: 0.50 E'Medial: 4.24 E/E' Med: 9.20 E' Laterial: 5.11 E/E' Lat: 7.60 Right Ventricle TAPSE (mm): 19.50 TVS' Didier: 9.25 Tricuspid Valve TR Pk Didier: 2.28 TR Pk Grad: 21.00 RA Press: 3.00 RVSP: 24.00 Great Vessels Aorta Sinus of Valsalva: 3.21 2.0-3.5 cm Ao Asc: 3.10 2.1-3.4 cm Updated in Other Vendor System with Status of Final Tomas Stinsno MD electronically signed on 02/16/2023 9:00:50 AM with status of Final
== END ==
LOC: HO.CARD 07:58
PROVIDERS: Visit Provider Internal Medicine
DX: R06.09 Other forms of dyspnea (principal); R60.9 Edema, unspecified; I10 Essential (primary) hypertension
CPT/HCPCS: 93306; Q9957

== ENCOUNTER 2023-02-20 06:57 | Outpatient (REF) | payer OTHER, SELFPAY ==
[2023-02-20 12:09] LABS: Anion Gap 16 (12-20); Blood Urea Nitrogen 10 mg/dL (9-16); Calcium 9.7 mg/dL (8.4-10.2); Carbon Dioxide 23 mmol/L (22-29); Chloride 103 mmol/L (96-108); Estimated Glomerular Filt Rate > 60; Glucose Random 130 mg/dL (60-115); Magnesium 1.7 mg/dL (1.6-2.6); Potassium 4.2 mmol/L (3.3-5.1); Sodium 138 mmol/L (135-145)
== END 2023-02-20 06:58 | disposition home or self-care (01) ==
LOC: HO.HMGCLDS 06:57
PROVIDERS: PCP Internal Medicine; Visit Provider Internal Medicine
DX: E83.42 Hypomagnesemia (principal); E87.6 Hypokalemia
CPT/HCPCS: 36415; 80048; 83735

== ENCOUNTER 2023-03-07 13:44 | Outpatient (AMB) | payer OTHER, SELFPAY ==
[2023-03-07 13:57] VITALS: BP 116/64; PULSE 79; O2SAT 97; BMI 35.3
--- NOTE | 2023-03-07 13:57 | A.OFFPC_ITS ---
Vital Signs 03/07/23 13:57 Height 5 ft 1 in Weight 187 lb BMI 35.3 BP 116/64 Blood Pressure Location Lt brachial Position Sitting Pulse 79 Pulse Source Pulse Oximeter Pulse Oximetry (%) 97 Oxygen Delivery Method Room Air Intake Visit Reasons: 1 Month follow up HTN Intake Note: Pt is here today for 1 month follow up visit on HTN. Allergies amoxicillin [AMOXICILLIN] Allergy (Intermediate, Verified 03/07/23 13:59) HIVES latex Allergy (Intermediate, Verified 03/07/23 13:59) Redness of Skin, irritation Medication List - Last Reconciled 03/07/23 by Ni Garduno MD acetaminophen 650 mg (2 x 325 mg) PO Q6H PRN 30 days albuterol sulfate 90 mcg/actuation 0 mcg inhalation alprazolam 0.25 mg (1/2 x 0.5 mg) PO BEDTIME PRN atorvastatin 20 mg PO DAILY budesonide-formoterol 80-4.5 mcg/actuation (Symbicort) 2 puffs PO BID citalopram 20 mg PO DAILY clindamycin HCl 600 mg (2 x 300 mg) PO ONCE clobetasol 0.05% 1 appl topical BEDTIME docusate sodium 100 mg PO BID furosemide 20 mg PO DAILY latanoprost 0.005% 1 drp ophthalmic (eye) BEDTIME lidocaine 5% 2 patches topical DAILY losartan 50 mg PO BID magnesium oxide 400 mg PO BID naproxen 500 mg PO BID PRN 10 days omeprazole 20 mg PO DAILY potassium chloride ER 3 tablets p.o. daily timolol maleate 0.5% 1 drp ophthalmic (eye) DAILY@0630 Tobacco use date assessed: 01/24/23 Dental Screening Dental Screen Date: 03/07/23 Did you have a dental visit in the last 12 months?: Yes Did you have a dental problem in the last 6 months where you did not have access to dental care?: No Was dental information given to patient?: Patient has dentist HPI 1 Month follow up HTN HPI Details Pt presents for f/u of HTN and chronic asthma. Lower extremity swelling improved on furosemide. Patient pulmonary function test consistent with asthma. She has been using Symbicort once a day only and reports occasionally cough in the morning. She denies wheezing or shortness of breath at rest. Echocardiogram showed decreased ejection fraction to50-55%, basal inferior lateral hypokinesis, mild septal asymmetric hypertrophy and normal valves. Patient has been under lot of stress because her was hospitalized with acute psychosis from change of the Parkinson's medications. [facility] Medical History (Updated 03/07/23 @ 15:23 by Ni Garduno MD) Annual physical exam Anxiety Ramon's esophagus COVID-19 vaccine series completed Elevated LFTs Glaucoma HLD (hyperlipidemia) HTN (hypertension) Hypercholesterolemia Hypermagnesemia Knee pain, chronic Nevus Osteoarthritis of hips, bilateral Plantar fasciitis of left foot Postmenopausal Rib pain on left side Surgical History H/O colonoscopy History of esophagogastroduodenoscopy (EGD) Hx of eye surgery Family History Father Bladder cancer Mother No problems noted. Maternal Grandmother COPD (chronic obstructive pulmonary disease) Myocardial infarction Maternal Grandfather No problems noted. Paternal Grandfather No problems noted. Paternal Grandmother No problems noted. 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 Mason Borges, Kathrin Jimenes, Juan Ibarra and colleagues, with an educational meli from [employer]. Review of Systems Const All systems reviewed & are unremarkable except as noted in HPI and below Reports no additional complaints Eyes Reports no additional complaints ENT Reports no additional complaints Card Reports no additional complaints Resp Reports no additional complaints GI Reports no additional complaints Reports no additional complaints Physical exam (Primary Care) Vital Signs: Last Vital Signs Pulse 79 03/07/23 13:57 BP 116/64 03/07/23 13:57 Pulse Ox 97 03/07/23 13:57 Oxygen Delivery Method Room Air 03/07/23 13:57 BMI result Body Mass Index 35.3 Tobacco/Smoking Status: Tobacco use Status Tobacco use date assessed 01/24/23 03/07/23 14:01 Patient Tobacco Use Status Never used Tobacco 03/07/23 14:01 e-Cigarette/Vaping Use Never Used 03/07/23 14:01 Thrive Assessment: Date of Thrive Assessment Date Thrive assessed 11/07/22 03/07/23 14:01 Const General: no acute distress Eyes General: appearance normal, both eyes and all related structures Neck Neck: Yes supple Resp Effort & Inspection: normal respiratory effort Auscultation: clear to auscultation bilaterally Cardio Rhythm: regular rhythm Heart sounds: S1 normal heart sound present and S2 normal heart sound present GI Inspection: Yes normal to inspection Percussion: Yes normal to percussion Assessment and Plan Assessment & Plan (1) SAINZ (dyspnea on exertion): Code(s): R06.09 - Other forms of dyspnea Plan: For new onset of more echocardiogram patient will be referred for nuclear stress test to rule out silent ischemia (2) Abnormal echocardiogram: Comment: Echo 02/17 EF 50-55%, basal inferior lateral hypokinesis, mild septal asymmetric hypertrophy, normal valves Code(s): R93.1 - Abnormal findings on diagnostic imaging of heart and coronary circulation Plan: Schedule nuclear stress (3) Asthma: Comment: PFT [facility], mild reversible obstruction c/w asthma 02/17 Code(s): J45.909 - Unspecified asthma, uncomplicated Plan: Increase Symbicort to twice a day (4) Hypomagnesemia: Code(s): E83.42 - Hypomagnesemia Plan: Continue magnesium supplement check magnesium level (5) Hypokalemia: Code(s): E87.6 - Hypokalemia Plan: Continue potassium supplement (6) HTN (hypertension): Code(s): I10 - Essential (primary) hypertension Plan: Continue losartan Orders: Orders CA stress test Today R06.09 - Other forms of dyspnea, R93.1 - Abnormal findings on diagnostic imaging of heart and coronary circulation NM cardiolite stress test Today R06.09 - Other forms of dyspnea, R93.1 - Abnormal findings on diagnostic imaging of heart and coronary circulation Comprehensive [place]. Panel Fast Today E78.00 - Pure hypercholesterolemia, unspecified, E83.42 - Hypomagnesemia, E87.6 - Hypokalemia, I10 - Essential (primary) hypertension, R06.09 - Other forms of dyspnea, R73.9 - Hyperglycemia, unspecified, R93.1 - Abnormal findings on diagnostic imaging of heart and coronary circulation Hemoglobin A1c Today E78.00 - Pure hypercholesterolemia, unspecified, E83.42 - Hypomagnesemia, E87.6 - Hypokalemia, I10 - Essential (primary) hypertension, R06.09 - Other forms of dyspnea, R73.9 - Hyperglycemia, unspecified, R93.1 - Abnormal findings on diagnostic imaging of heart and coronary circulation Lipid Panel Today E78.00 - Pure hypercholesterolemia, unspecified, E83.42 - Hypomagnesemia, E87.6 - Hypokalemia, I10 - Essential (primary) hypertension, R06.09 - Other forms of dyspnea, R73.9 - Hyperglycemia, unspecified, R93.1 - Abnormal findings on diagnostic imaging of heart and coronary circulation TSH reflex Free T4 Today E78.00 - Pure hypercholesterolemia, unspecified, E83.42 - Hypomagnesemia, E87.6 - Hypokalemia, I10 - Essential (primary) hypertension, R06.09 - Other forms of dyspnea, R73.9 - Hyperglycemia, unspecified, R93.1 - Ab normal findings on diagnostic imaging of heart and coronary circulation Microalbumin, Random (w Creat) Today E78.00 - Pure hypercholesterolemia, unspecified, E83.42 - Hypomagnesemia, E87.6 - Hypokalemia, I10 - Essential (primary) hypertension, R06.09 - Other forms of dyspnea, R73.9 - Hyperglycemia, unspecified, R93.1 - Abnormal findings on diagnostic imaging of heart and coronary circulation Complete Blood Count Auto Diff Today E78.00 - Pure hypercholesterolemia, unspecified, E83.42 - Hypomagnesemia, E87.6 - Hypokalemia, I10 - Essential (pr imary) hypertension, R06.09 - Other forms of dyspnea, R73.9 - Hyperglycemia, unspecified, R93.1 - Abnormal findings on diagnostic imaging of heart and coronary circulation Magnesium Today E83.42 - Hypomagnesemia Coding Level of Care Code Est Pt Level 4 (26353) Diagnoses SAINZ (dyspnea on exertion) R06.09 Abnormal echocardiogram R93.1 Asthma J45.909 Hypomagnesemia E83.42 Hypokalemia E87.6 HTN (hypertension) I10
== END 2023-03-07 15:00 | disposition home or self-care (01) ==
PROVIDERS: Visit Provider Internal Medicine
DX: J45.909 Unspecified asthma, uncomplicated (principal); E83.42 Hypomagnesemia; I10 Essential (primary) hypertension; R93.1 Abnormal findings on diagnostic imaging of heart and coronary circulation; E87.6 Hypokalemia
CPT/HCPCS: 99214

== ENCOUNTER 2023-03-22 11:14 | Outpatient (REF) | payer OTHER, SELFPAY ==
[2023-03-22 13:54] LABS: Magnesium 1.7 mg/dL (1.6-2.6); Potassium 4.4 mmol/L (3.3-5.1)
== END 2023-03-22 11:15 | disposition home or self-care (01) ==
LOC: HO.HMGCLDS 11:14
PROVIDERS: PCP Internal Medicine; Visit Provider Internal Medicine
DX: E83.42 Hypomagnesemia (principal); E87.6 Hypokalemia
CPT/HCPCS: 36415; 83735; 84132

== ENCOUNTER 2023-03-31 10:11 | Outpatient (REF) | payer OTHER, SELFPAY ==
[2023-03-31 14:57] LABS: Magnesium 1.7 mg/dL (1.6-2.6); Potassium 4.7 mmol/L (3.3-5.1)
== END 2023-03-31 10:12 | disposition home or self-care (01) ==
LOC: HO.HMGCLDS 10:11
PROVIDERS: PCP Internal Medicine; Visit Provider Internal Medicine
DX: E83.42 Hypomagnesemia (principal); E87.6 Hypokalemia
CPT/HCPCS: 36415; 83735; 84132

== ENCOUNTER → 2023-04-06 07:46 | Outpatient (REF) | payer OTHER, SELFPAY ==
--- NOTE | ~2023-04-06 | NM_ITS ---
Myocardial perfusion study Indication: Shortness of breath on exertion to evaluate for myocardial ischemia Technique: The patient was brought in for a Lexiscan perfusion study on 04/06/2023. Patient performed low-level exercise and was injected 0.4 mg of Lexiscan intravenously. Within a minute of injection, 30 mCi of sestamibi was given intravenously. Images were obtained using the SPECT gamma camera interlaced with the gating device. Images were obtained in supine position. Resting perfusion study was performed on 04/07/2023. Patient was administered 30 mCi of sestamibi intravenously at rest. Images were then obtained in supine position. Images obtained with and without CT attenuation. Total DLP 135 mGy-cm. Images were processed with the software and compared side to side in short axis, horizontal long axis and vertical long axis views. Findings: The stress perfusion study showed both attenuated as well as non attenuated corrected images show normal uptake of radiotracer in all segments of LV myocardium. The gated study shows normal LV systolic function with calculated LVEF of 55%. LV cavity is normal in size. The gated study shows normal systolic wall thickening and contraction of segments. Resting study shows non attenuated images show normal uptake of radiotracer in all segments of LV myocardium. Gating at rest reveals normal systolic wall motion with ejection fraction at 60%. The findings are consistent with normal myocardial perfusion. NM/NM cardiolite stress test Impression: 1. Myocardial perfusion imaging study shows normal myocardial perfusion 2. Gated LVEF is 55% 3. Transient ischemic dilatation not present EKG is nondiagnostic for ischemia
--- NOTE | 2023-04-06 07:50 | CA_ITS ---
Acquisition Time: 2023-04-06 08:06:11 Total Exercise Time: 00:03:11 Test Indications: ABN ECHO Medications: SEE H Protocol: SHANNAN Max HR: 136 BPM 89% of Pred: 152 BPM Max BP: 186/082 mmHG Max Work Load: 4.6 METS Exercise stress test exercise 3 min 11 sec of Shannan protocol achieivng briefly 80% MPHR with request to stop due to breathing and couldnt go any longer, with moderate to severe SOB, no chest discomfort, without arrhythmias, with no EKG changes at achieived workload. Patient assisted to chair and breathing returned to normal. Once breathing returned to normal test changed to pharmacological stress test with Lexiscan injection. without anginal symptoms, with isolated PVC, with normotensive response to injection. with nondiagostic EKGs Nuclear images pending. Test reviewed with Dr. Philippe. Referred By: Ni Garduno Overread By: BRENDA XIE
== END ==
LOC: HO.CARD 07:46
PROVIDERS: Visit Provider Internal Medicine
DX: R06.09 Other forms of dyspnea (principal); R93.1 Abnormal findings on diagnostic imaging of heart and coronary circulation
CPT/HCPCS: 78452; 93017; A9500; J0280; J2785

== ENCOUNTER → 2023-04-06 08:20 | Outpatient (BNV) | payer OTHER, SELFPAY | PROVIDERS: Visit Provider Internal Medicine Cardiovascular Disease | DX: R93.1 Abnormal findings on diagnostic imaging of heart and coronary circulation (principal); R06.02 Shortness of breath | CPT/HCPCS: 78452; 93016; 93018 ==

== ENCOUNTER 2023-04-11 09:28 | Outpatient (REF) | payer OTHER, SELFPAY ==
[2023-04-11 13:29] LABS: MANUAL DIFF FLAG NO
[2023-04-11 13:56] LABS: Basophils Absolute Auto 0.1 X10*3/uL (0.0-0.2); Basophils Percent Auto 0.9 % (0-2); Eosinophils Absolute Auto 0.1 X10*3/uL (0.0-0.4); Eosinophils Percent Auto 0.9 % (0-4); Hematocrit 45.4 % (37.0-47.0); Hemoglobin 14.7 g/dl (12.0-16.0); Imm Gran Abs Auto 0.01 X10*3/uL (0.00-0.03); Imm Gran Pct Auto 0.2 % (0.0-0.4); Lymphocytes Absolute Auto 1.6 X10*3/uL (1.2-4.9); Lymphocytes Percent Auto 29.5 % (20-40); Mean Corpuscular HGB Conc 32.4 g/dl (31.0-35.0); Mean Corpuscular Hemoglobin 30.1 pg (27.0-33.0); Mean Corpuscular Volume 92.8 fL (80.0-98.0); Mean Platelet Volume 9.2 fL (9.4-12.3); Monocytes Absolute Auto 0.5 X10*3/uL (0.1-1.2); Monocytes Percent Auto 8.7 % (2-11); Neutrophils Absolute Auto 3.3 x10*3/uL (2.0-8.3); Neutrophils Percent Auto 59.8 % (45-73); Platelet Count 186 X10*3/uL (160-400); Red Blood Count 4.89 X10*6/uL (4.20-5.50); Red Cell Distribution Width 14.4 % (11.0-16.0); White Blood Count 5.5 X10*3/uL (4.8-10.8)
[2023-04-11 14:01] LABS: Estimated Average Glucose 108 mg/dL; Hemoglobin A1c % 5.4 %
[2023-04-11 14:14] LABS: Alanine Aminotransferase 21 U/L (0-31); Albumin Level 4.3 g/dL (3.5-5.0); Alkaline Phosphatase 77 U/L (39-117); Anion Gap 19 (12-20); Aspartate Amino Transferase 26 U/L (5-31); Bilirubin Total 1.1 mg/dL (0.0-1.0); Blood Urea Nitrogen 13 mg/dL (9-16); Calcium 9.6 mg/dL (8.4-10.2); Carbon Dioxide 25 mmol/L (22-29); Chloride 101 mmol/L (96-108); Cholesterol 204 mg/dL; Estimated Glomerular Filt Rate 55; Glucose Fasting 104 mg/dL (60-99); HDL Cholesterol 96 mg/dL; LDL Cholesterol Calculated 83 mg/dl; Magnesium 1.7 mg/dL (1.6-2.6); Potassium 4.7 mmol/L (3.3-5.1); Sodium 140 mmol/L (135-145); Total Protein 7.2 g/dL (6.5-8.0); Triglycerides 126 mg/dL
[2023-04-11 14:34] LABS: Creatinine Urine 51.07 mg/dL; Microalbumin Urine < 5.0 mg/L
== END 2023-04-11 09:29 | disposition home or self-care (01) ==
LOC: HO.HMGCLDS 09:28
PROVIDERS: PCP Internal Medicine; Visit Provider Internal Medicine
DX: E83.42 Hypomagnesemia (principal); E87.6 Hypokalemia; I10 Essential (primary) hypertension; R06.09 Other forms of dyspnea; R73.9 Hyperglycemia, unspecified; R93.1 Abnormal findings on diagnostic imaging of heart and coronary circulation; E78.00 Pure hypercholesterolemia, unspecified
CPT/HCPCS: 36415; 80053; 80061; 82043; 83036; 83735; 84443; 85025

== ENCOUNTER 2023-04-17 07:51 | Outpatient (AMB) | payer OTHER, SELFPAY ==
--- NOTE | 2023-04-17 07:53 | MHC.PC.OV ---
Vital Signs 04/17/23 07:55 Height 5 ft 1 in Weight 186 lb BMI 35.1 BP 118/68 Blood Pressure Location Rt brachial Position Sitting Pulse 86 Pulse Source Pulse Oximeter Pulse Oximetry (%) 96 Oxygen Delivery Method Room Air Intake Visit Reasons: Annual PE Intake Note: Pt is here today for PE. Allergies amoxicillin [AMOXICILLIN] Allergy (Intermediate, Verified 04/17/23 07:55) HIVES latex Allergy (Intermediate, Verified 04/17/23 07:55) Redness of Skin, irritation Medication List - Last Reconciled 04/17/23 by Ni Garduno MD acetaminophen 650 mg (2 x 325 mg) PO Q6H PRN 30 days albuterol sulfate 90 mcg/actuation 0 mcg inhalation alprazolam 0.25 mg (1/2 x 0.5 mg) PO BEDTIME PRN atorvastatin 20 mg PO DAILY budesonide-formoterol 80-4.5 mcg/actuation (Symbicort) 2 puffs PO BID citalopram 20 mg PO DAILY clindamycin HCl 600 mg (2 x 300 mg) PO ONCE clobetasol 0.05% 1 appl topical BEDTIME docusate sodium 100 mg PO BID furosemide 20 mg PO DAILY latanoprost 0.005% 1 drp ophthalmic (eye) BEDTIME lidocaine 5% 2 patches topical DAILY losartan 50 mg PO BID magnesium oxide 400 mg PO BID naproxen 500 mg PO BID PRN 10 days omeprazole 20 mg PO DAILY potassium chloride ER 3 tablets p.o. daily timolol maleate 0.5% 1 drp ophthalmic (eye) DAILY@0630 Tobacco use date assessed: 04/17/23 Dental Screening Dental Screen Date: 04/17/23 Did you have a dental visit in the last 12 months?: Yes Did you have a dental problem in the last 6 months where you did not have access to dental care?: No Was dental information given to patient?: Patient has dentist HPI Annual PE HPI Details Pt presents for PE. She has been under lot of stress taking care of her with Parkinson's disease PFSH Medical History Annual physical exam Anxiety Ramon's esophagus COVID-19 vaccine series completed Elevated LFTs Glaucoma HLD (hyperlipidemia) HTN (hypertension) Hypercholesterolemia Hypermagnesemia Knee pain, chronic Nevus Osteoarthritis of hips, bilateral Plantar fasciitis of left foot Postmenopausal Rib pain on left side Surgical History H/O colonoscopy History of esophagogastroduodenoscopy (EGD) Hx of eye surgery Family History Father Bladder cancer Mother No problems noted. Maternal Grandmother COPD (chronic obstructive pulmonary disease) Myocardial infarction Maternal Grandfather No problems noted. Paternal Grandfather No problems noted. Paternal Grandmother No problems noted. 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 How often do you have a drink containing alcohol?: 2-4 times a month 2. How many drinks containing alcohol do you have on a typical day when you are drinking?: 1 or 2 3. How often do you have six or more drinks on one occasion?: Never Total Score: 2 UL-7 AMB Questionnaire LU-7 Date LU - 7 assessed: 11/07/22 Source: Developed by Drs. Mason Borges, Kathrin Jimenes, Juan Ibarra and colleagues, with an educational meli from [employer]. Review of Systems Const All systems reviewed & are unremarkable except as noted in HPI and below Reports no additional complaints Eyes Reports no additional complaints ENT Reports no additional complaints Card Reports no additional complaints Resp Reports no additional complaints GI Reports no additional complaints Reports no additional complaints Physical exam (Primary Care) Vital Signs: Last Vital Signs Pulse 86 04/17/23 07:55 BP 118/68 04/17/23 07:55 Pulse Ox 96 04/17/23 07:55 Oxygen Delivery Method Room Air 04/17/23 07:55 BMI result Body Mass Index 35.1 Tobacco/Smoking Status: Tobacco use Status Tobacco use date assessed 04/17/23 04/17/23 07:59 Patient Tobacco Use Status Never used Tobacco 04/17/23 07:59 e-Cigarette/Vaping Use Never Used 04/17/23 07:59 Thrive Assessment: Date of Thrive Assessment Date Thrive assessed 11/07/22 04/17/23 07:59 Const General: no acute distress HENMT Head: Yes normal to inspection Ears: hearing grossly normal bilaterally Face and sinus: Yes normal facial exam Mouth: Normal oral and palatal mucosa present Throat: Yes posterior oropharynx normal Eyes General: appearance normal, both eyes and all related structures Neck Neck: Yes no lymphadenopathy and Yes supple Resp Effort & Inspection: normal respiratory effort Auscultation: clear to auscultation bilaterally Cardio Rhythm: regular rhythm Heart sounds: S1 normal heart sound present and S2 normal heart sound present GI Inspection: Yes normal to inspection Palpation (GI): Soft to palpation Percussion: Yes normal to percussion Auscultation: normal bowel sounds Assessment and Plan Assessment & Plan (1) Hypokalemia: Comment: Chronic diarrhea Code(s): E87.6 - Hypokalemia Plan: Decreased potassium supplement to 1 tablet a day and magnesium supplement to once a day. Check basic metabolic panel in 1 week. Patient was advised to take furosemide only as needed up to twice a week (2) Asthma: Comment: PFT [facility], mild reversible obstruction c/w asthma 02/17 Code(s): J45.909 - Unspecified asthma, uncomplicated Plan: Continue Symbicort (3) HTN (hypertension): Code(s): I10 - Essential (primary) hypertension Plan: Continue current medications (4) Hypercholesterolemia: Code(s): E78.00 - Pure hypercholesterolemia, unspecified Plan: Continue statin (5) Annual physical exam: Code(s): Z00.00 - Encounter for general adult medical examination without abnormal findings Plan: Well-balanced diet and regular physical activity discussed with the patient. Stress management discussed with the patient. Follow-up in 6 months Orders: Orders Basic Metabolic Panel 1 Week E87.6 - Hypokalemia Comprehensive [place]. Panel Fast 6 Months E78.00 - Pure hypercholesterolemia, unspecified, E83.42 - Hypomagnesemia, E87.6 - Hypokalemia, I10 - Essential (primary) hypertension, R73.9 - Hyperglycemia, unspecified Hemoglobin A1c 6 Months E78.00 - Pure hypercholesterolemia, unspecified, E83.42 - Hypomagnesemia, E87.6 - Hypokalemia, I10 - Essential (primary) hypertension, R73.9 - Hyperglycemia, unspecified Lipid Panel 6 Months E78.00 - Pure hypercholesterolemia, unspecified, E83.42 - Hypomagnesemia, E87.6 - Hypokalemia, I10 - Essential (primary) hypertension, R73.9 - Hyperglycemia, unspecified Complete Blood Count Auto Diff 6 Months E78.00 - Pure hypercholesterolemia, unspecified, E83.42 - Hypomagnesemia, E87.6 - Hypokalemia, I10 - Essential (primary) hypertension, R73.9 - Hyperglycemia, unspecified Magnesium 1 Week E83.42 - Hypomagnesemia Magnesium 6 Months E83.42 - Hypomagnesemia Coding Level of Care Code Est Pt Prev Care >65y(73446) Diagnoses Hypokalemia E87.6 Asthma J45.909 HTN (hypertension) I10 Hypercholesterolemia E78.00 Annual physical exam Z00.00
[2023-04-17 07:55] VITALS: BP 118/68; PULSE 86; O2SAT 96; BMI 35.1
== END 2023-04-17 08:44 | disposition home or self-care (01) ==
PROVIDERS: PCP Internal Medicine; Visit Provider Internal Medicine
DX: E87.6 Hypokalemia (principal); J45.909 Unspecified asthma, uncomplicated; I10 Essential (primary) hypertension; E78.00 Pure hypercholesterolemia, unspecified; Z00.00 Encounter for general adult medical examination without abnormal findings
CPT/HCPCS: 99397

== ENCOUNTER 2023-05-05 08:39 | Outpatient (REF) | payer OTHER, SELFPAY ==
[2023-05-05 11:57] LABS: Anion Gap 11 (12-20); Blood Urea Nitrogen 11 mg/dL (9-16); Calcium 9.1 mg/dL (8.4-10.2); Carbon Dioxide 25 mmol/L (22-29); Chloride 108 mmol/L (96-108); Estimated Glomerular Filt Rate > 60; Glucose Random 93 mg/dL (60-115); Magnesium 1.5 mg/dL (1.6-2.6); Potassium 4.6 mmol/L (3.3-5.1); Sodium 139 mmol/L (135-145)
== END 2023-05-05 08:40 | disposition home or self-care (01) ==
LOC: HO.HMGCLDS 08:39
PROVIDERS: PCP Internal Medicine; Visit Provider Internal Medicine
DX: E83.42 Hypomagnesemia (principal); E87.6 Hypokalemia
CPT/HCPCS: 36415; 80048; 83735

== ENCOUNTER 2023-07-11 07:42 | Outpatient (REF) | payer OTHER, SELFPAY ==
[2023-07-11 12:07] LABS: Anion Gap 13 (12-20); Blood Urea Nitrogen 11 mg/dL (9-16); Carbon Dioxide 28 mmol/L (22-29); Chloride 102 mmol/L (96-108); Estimated Glomerular Filt Rate > 60; Glucose Random 90 mg/dL (60-115); Magnesium 1.7 mg/dL (1.6-2.6); Potassium 4.5 mmol/L (3.3-5.1); Sodium 138 mmol/L (135-145)
== END 2023-07-11 07:43 | disposition home or self-care (01) ==
LOC: HO.HMGCLDS 07:42
PROVIDERS: PCP Internal Medicine; Visit Provider Internal Medicine
DX: E83.42 Hypomagnesemia (principal); E87.6 Hypokalemia
CPT/HCPCS: 36415; 80048; 83735

== ENCOUNTER 2023-08-11 08:44 | Day surgery (SDC) | payer OTHER, SELFPAY ==
[2023-08-09 10:49] VITALS: BMI 35.1
--- NOTE | 2023-08-10 12:01 | HO.ANESPROP2 ---
Documented by User: Michelle Chin NP 08/10/23 12:02 HPI - Anesthesia Eval Consult details Narrative: 68yo F for Colonoscopy PMFSH Active Problems Active Problems: All Active Problems (Updated 08/09/23 @ 10:41 by Delia Bedoya RN) Abnormal echocardiogram (Acute) Hypomagnesemia (Acute) Hypokalemia (Acute) Alcohol abuse (Acute) Asthma (Acute) Edema (Acute) SAINZ (dyspnea on exertion) (Acute) Hyperglycemia (Acute) Status post total hip replacement, left (Acute) Osteoarthritis of left hip (Acute) Anxiety (Acute) Rib pain on left side (Acute) Hypercholesterolemia (Acute) HTN (hypertension) (Acute) Elevated LFTs (Acute) Osteoarthritis of hips, bilateral (Acute) Nevus (Acute) Annual physical exam (Acute) Postmenopausal (Acute) Knee pain, chronic (Acute) Past Medical History Medical History Hypermagnesemia Rib pain on left side HLD (hyperlipidemia) Glaucoma Elevated LFTs Osteoarthritis of hips, bilateral Nevus Annual physical exam Postmenopausal Knee pain, chronic Ramon's esophagus Plantar fasciitis of left foot Hypercholesterolemia Anxiety HTN (hypertension) Family History Family History Father Bladder cancer Mother No problems noted. Maternal Grandmother COPD (chronic obstructive pulmonary disease) Myocardial infarction Maternal Grandfather No problems noted. Paternal Grandfather No problems noted. Paternal Grandmother No problems noted. Brother Substance use disorder Family history of problems with anesthesia: No Surgical History Surgical History History of total left hip arthroplasty Hx of eye surgery H/O colonoscopy History of esophagogastroduodenoscopy (EGD) History of Problems with Anesthesia: No Social History Social History Household Members: Spouse Household Members Other:: Housing: House Are you a primary child care associate to a significant other at home: No Do you presently have visiting nurse or other home services: No Alcohol intake: current Alcohol intake frequency: holidays/special occasions only Comment: bath mat has rubber backing Patient Tobacco Use Status: Never used Tobacco e-Cigarette/Vaping Use: Never Used Second Hand Smoke Exposure: No Use of substances other than those prescribed or required for medical reasons: No Are you DNR?: No Advance Directives: No Advance Directives Information Provided: Yes Advance Directives on File: No service: No Current occupational status: employed 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 Cognitive needs: No Hearing needs: No Vision needs: Yes Meds Allergies Allergy/AdvReac Type Severity Reaction Status Date / Time amoxicillin [AMOXICILLIN] Allergy Intermediate HIVES Verified 04/17/23 07:55 latex Allergy Intermediate Redness of Verified 04/17/23 07:55 Skin, irritation Home Medications Medication Instructions Recorded Confirmed Last Taken Type latanoprost 0.005 % eye drops 1 drp ophthalmic (eye) BEDTIME 12/30/20 08/09/23 Unknown History timolol maleate 0.5 % eye drops 1 drp ophthalmic (eye) DAILY@0630 12/30/20 08/09/23 Unknown History albuterol sulfate 90 mcg/actuation 2 puff inhalation Q4H PRN 04/29/21 08/09/23 Unknown History aerosol inhaler Shortness Of Breath Or Wheezing Exam Height,Weight and Vital Signs: Height 5 ft 1.5 in Weight 85.729 kg Narrative Narrative: ECHO 01/2023 Conclusions: - The left ventricular systolic function is low normal. The visually estimated ejection fraction is between 50-55%. - Possible basal infero-lateral hypokinesis but difficult to assess. - No obvious valvular pathology seen on this study. NM cardiolite stress test 03/2023 Impression: 1. Myocardial perfusion imaging study shows normal myocardial perfusion 2. Gated LVEF is 55% 3. Transient ischemic dilatation not present EKG is nondiagnostic for ischemia Assessment and Plan Assessment Anesthesia Assessment: Chart Reviewed Final Anesthetic Review Family History of Problems with Anesthesia: No History of Problems with Anesthesia: No Documented by User: Rosio Norris MD 08/11/23 10:10 PMFSH Past Medical History Medical History Hypermagnesemia Rib pain on left side HLD (hyperlipidemia) Glaucoma Elevated LFTs Osteoarthritis of hips, bilateral Nevus Annual physical exam Postmenopausal Knee pain, chronic Ramon's esophagus Plantar fasciitis of left foot Hypercholesterolemia Anxiety HTN (hypertension) Family History Family History Father Bladder cancer Mother No problems noted. Maternal Grandmother COPD (chronic obstructive pulmonary disease) Myocardial infarction Maternal Grandfather No problems noted. Paternal Grandfather No problems noted. Paternal Grandmother No problems noted. Brother Substance use disorder Surgical History Surgical History History of total left hip arthroplasty Hx of eye surgery H/O colonoscopy History of esophagogastroduodenoscopy (EGD) Social History Social History Household Members: Spouse Household Members Other:: Housing: House Are you a primary child care associate to a significant other at home: No Do you presently have visiting nurse or other home services: No Alcohol intake: current Alcohol intake frequency: holidays/special occasions only Comment: bath mat has rubber backing Patient Tobacco Use Status: Never used Tobacco e-Cigarette/Vaping Use: Never Used Second Hand Smoke Exposure: No Use of substances other than those prescribed or required for medical reasons: No Are you DNR?: No Advance Directives: No Advance Directives Information Provided: Yes Advance Directives on File: No service: No Current occupational status: employed 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 Cognitive needs: No Hearing needs: No Vision needs: Yes Meds Allergies Allergy/AdvReac Type Severity Reaction Status Date / Time amoxicillin [AMOXICILLIN] Allergy Intermediate HIVES Verified 04/17/23 07:55 latex Allergy Intermediate Redness of Verified 04/17/23 07:55 Skin, irritation Home Medications Medication Instructions Recorded Confirmed Last Taken Type latanoprost 0.005 % eye drops 1 drp ophthalmic (eye) BEDTIME 12/30/20 08/09/23 Unknown History timolol maleate 0.5 % eye drops 1 drp ophthalmic (eye) DAILY@0630 12/30/20 08/09/23 Unknown History albuterol sulfate 90 mcg/actuation 2 puff inhalation Q4H PRN 04/29/21 08/09/23 Unknown History aerosol inhaler Shortness Of Breath Or Wheezing Exam Airway Mallampati Class: II TM Dist: >3cm Neck ROM: Full Heart: rrr Lungs: cta Assessment and Plan Assessment Anesthesia Assessment: Anesthesia Plan Discussed Final Anesthetic Review NPO: Yes ASA Class: III Final Preanesthetic Review: No Changes in Pt Med Stat, Meds/Allgs Chart Reviewed, Consent Obtained/Reviewed and Anes Risks/Benef Reviewed Patient Risk: Low Procedure Risk: Low Anesthetic Plan Anesthetic Plan: MAC: Disposition: Standard PACU
[2023-08-11 09:14] VITALS: BMI 35.5
[2023-08-11 09:41] VITALS: BP 145/88; PULSE 92; RESP 16; TEMP 36.4; O2SAT 94
[2023-08-11] MEDS: Lactated Ringers 1,000 ML 100 ML IVCONT (09:46)
--- NOTE | 2023-08-11 09:57 | MHC.SHP ---
Pre-Procedural Eval Section A Date of Service: 08/11/23 Section B Chief Complaint: screening Details of Present Illness: sere H&P no changes Relevant Family History (Specify if Yes): No Relevant Social History: None Present Medications: see Short Stay Collaborative assessment Medical History: No relevant PMH History of Previous Operations: No relevant previous surgery Allergies: Allergies Allergy/AdvReac Type Severity Reaction Status Date / Time amoxicillin [AMOXICILLIN] Allergy Intermediate HIVES Verified 04/17/23 07:55 latex Allergy Intermediate Redness of Verified 04/17/23 07:55 Skin, irritation Review of Systems Sugical H&P ROS: Negative: Constitution, Cardiovascular, Respiratory, Neurological, Psychiatric, Hem-Onc, Allergic/Immunologic, Gastrointestinal, Genitourinary, Musculoskeletal, Integumentary, Endocrine and Eyes/Ears/Nose/Throat Exam Surgical H&P Exam: Normal: HEENT, Normal: Heart, Normal: Lungs, Normal: Extremities, Normal: Abdomen, Normal: Skin and Normal: Neurological Plan Diagnosis/Plan: Unchanged I have reviewed the history and physical and performed a pertinent physical examination on my patient. No changes have occurred unless specified. Time Spent With Patient Time: Total time managing care of this patient today ____ minutes.
[2023-08-11 10:26] VITALS: BP 115/78; PULSE 80; RESP 16; TEMP 37.2; O2SAT 97
[2023-08-11 10:41] VITALS: BP 123/77; PULSE 69; RESP 18; TEMP 37.2; O2SAT 98
--- NOTE | 2023-08-11 11:33 | OP_ITS ---
DATE OF SERVICE: 08/11/2023 SURGEON: Billy Cobos MD INDICATIONS: Colon cancer screening and prior history of adenomatous colon polyps. PREOPERATIVE DIAGNOSIS: POSTOPERATIVE DIAGNOSIS: PROCEDURE PERFORMED: Colonoscopy to the cecum with biopsy, snare polypectomy, and cauterization of the colon polyps. ESTIMATED BLOOD LOSS: COMPLICATIONS: ANESTHESIA: Monitored anesthesia care. ASSISTANTS: SPECIMENS: DESCRIPTION OF PROCEDURE: A history and physical was performed. The risks and benefits of the procedure were explained to the patient. Informed consent was obtained. The patient was placed in the left lateral decubitus position. A digital rectal exam was performed and was found to be normal. The Olympus pediatric video colonoscope was introduced into the rectum and advanced to the cecum. The cecum was identified by transillumination, palpation, and identification of ileocecal valve. Examination was performed. The scope was removed. She tolerated the procedure well and was returned to the recovery area in stable condition. FINDINGS: The terminal ileum was not examined. The visualized colonic mucosa was normal. The quality of the prep was good. Multiple polyps were present. In the cecum was a less than 5 mm sessile polyp, which was removed with biopsy forceps. At 90 cm were 2 polyps, 1 measuring under 3 mm was cauterized with the tip of the snare. The 2nd measuring 8 mm was removed with a hot snare and recovered via suction. At 30 cm was a less than 10 mm polyp, which was also removed with a hot snare. There was mild sigmoid diverticulosis. Retroflexed examination showed some internal hemorrhoids. IMPRESSION: Colon polyps. RECOMMENDATION: Follow up the biopsy results. MD SAEED Weiss/MYRON / [id number]
== END 2023-08-11 11:25 | disposition home or self-care (01) ==
PROVIDERS: PCP Internal Medicine; Visit Provider Internal Medicine Gastroenterology
PROC: 0DJD8ZZ Inspection of Lower Intestinal Tract, Via Natural or Artificial Opening Endoscopic (ICD-10-PCS; CPT 45378; principal; 2023-08-11 10:30)
DX: Z12.11 Encounter for screening for malignant neoplasm of colon (principal); Z86.010 Personal history of colon polyps; D12.0 Benign neoplasm of cecum; D12.3 Benign neoplasm of transverse colon; D12.5 Benign neoplasm of sigmoid colon; K57.30 Diverticulosis of large intestine without perforation or abscess without bleeding; K64.8 Other hemorrhoids; I10 Essential (primary) hypertension; E78.00 Pure hypercholesterolemia, unspecified; K22.70 Barrett's esophagus without dysplasia; Z79.899 Other long term (current) drug therapy; Z88.1 Allergy status to other antibiotic agents
CPT/HCPCS: 45385; 45380; 88305; J2704

== ENCOUNTER 2023-08-29 07:44 | Outpatient (REF) | payer OTHER, SELFPAY ==
--- NOTE | ~2023-08-29 | MM_ITS ---
EXAMINATION: MM SCREENING DIGITAL BREAST TOMOSYNTHESIS, BILATERAL CLINICAL INFORMATION: Screening. Asymptomatic. COMPARISON: Mammography: 08/16/2022, 08/19/2021, 08/08/2020, 08/03/2019, 06/29/2018. TECHNIQUE: Digital breast tomosynthesis is performed in both the craniocaudal and mediolateral oblique views along with computer-aided detection (CAD). Synthesized 2D images are generated from the tomosynthesis. FINDINGS: There are scattered areas of fibroglandular density (ACR BI-RADS breast composition Category b). There are no significant masses, abnormal calcifications, or other abnormalities. There is a dermal lesion in the 6:00 axis of the right breast. Parenchymal pattern is stable from prior exams. No skin or axillary abnormalities. MM/MM tomosynthesis screening BI IMPRESSION: No mammographic evidence of malignancy. ASSESSMENT: BI-RADS BI-RADS 1 - Negative RECOMMENDATION: Routine annual mammography screening. 1 year F/U This examination should not preclude the clinical evaluation of a suspicious palpable abnormality. This patient's information was entered into a reminder system with a target due date for their next mammogram.
== END 2023-08-29 07:45 | disposition home or self-care (01) ==
LOC: HO.MAMMO 07:44
PROVIDERS: PCP Internal Medicine; Visit Provider Internal Medicine
DX: Z12.31 Encounter for screening mammogram for malignant neoplasm of breast (principal)
CPT/HCPCS: 77063; 77067

== ENCOUNTER → 2023-08-29 08:00 | Outpatient (BNV) | payer OTHER, SELFPAY | PROVIDERS: PCP Internal Medicine; Visit Provider Radiology Diagnostic Radiology | DX: Z12.31 Encounter for screening mammogram for malignant neoplasm of breast (principal) | CPT/HCPCS: 77063; 77067 ==

== ENCOUNTER 2023-11-21 06:41 | Outpatient (REF) | payer OTHER, SELFPAY ==
[2023-11-21 11:46] LABS: MANUAL DIFF FLAG NO
[2023-11-21 12:18] LABS: Basophils Percent Auto 0.8 % (0-2); Eosinophils Absolute Auto 0.1 X10*3/uL (0.0-0.4); Eosinophils Percent Auto 1.6 % (0-4); Hematocrit 42.8 % (37.0-47.0); Hemoglobin 13.9 g/dl (12.0-16.0); Imm Gran Abs Auto 0.01 X10*3/uL (0.00-0.03); Imm Gran Pct Auto 0.3 % (0.0-0.4); Lymphocytes Absolute Auto 1.4 X10*3/uL (1.2-4.9); Lymphocytes Percent Auto 37.4 % (20-40); Mean Corpuscular HGB Conc 32.5 g/dl (31.0-35.0); Mean Corpuscular Volume 95.3 fL (80.0-98.0); Mean Platelet Volume 9.4 fL (9.4-12.3); Monocytes Absolute Auto 0.3 X10*3/uL (0.1-1.2); Monocytes Percent Auto 8.6 % (2-11); Neutrophils Percent Auto 51.3 % (45-73); Platelet Count 141 X10*3/uL (160-400); Red Blood Count 4.49 X10*6/uL (4.20-5.50); Red Cell Distribution Width 14.2 % (11.0-16.0); White Blood Count 3.8 X10*3/uL (4.8-10.8)
[2023-11-21 12:21] LABS: Estimated Average Glucose 108 mg/dL; Hemoglobin A1c % 5.4 % (<6.0)
[2023-11-21 12:56] LABS: Alanine Aminotransferase 68 U/L (0-31); Albumin Level 3.6 g/dL (3.5-5.0); Alkaline Phosphatase 99 U/L (39-117); Anion Gap 15 (12-20); Aspartate Amino Transferase 102 U/L (5-31); Bilirubin Total 1.5 mg/dL (0.0-1.0); Blood Urea Nitrogen 9 mg/dL (9-16); Calcium 8.5 mg/dL (8.4-10.2); Carbon Dioxide 24 mmol/L (22-29); Chloride 104 mmol/L (96-108); Cholesterol 187 mg/dL (<200); Estimated Glomerular Filt Rate > 60; Glucose Fasting 106 mg/dL (60-99); HDL Cholesterol 93 mg/dL (>40); LDL Cholesterol Calculated 63 mg/dL (<100); Magnesium 1.6 mg/dL (1.6-2.6); Potassium 4.2 mmol/L (3.3-5.1); Sodium 139 mmol/L (135-145); Total Protein 6.1 g/dL (6.5-8.0); Triglycerides 158 mg/dL (<150)
== END 2023-11-21 06:42 | disposition home or self-care (01) ==
LOC: HO.HMGCLDS 06:41
PROVIDERS: PCP Internal Medicine; Visit Provider Internal Medicine
DX: E83.42 Hypomagnesemia (principal); E87.6 Hypokalemia; I10 Essential (primary) hypertension; R73.9 Hyperglycemia, unspecified; E78.00 Pure hypercholesterolemia, unspecified
CPT/HCPCS: 36415; 80053; 80061; 83036; 83735; 85025

== ENCOUNTER 2023-11-22 10:35 | Outpatient (AMB) | payer OTHER, SELFPAY ==
[2023-11-22 10:37] VITALS: BP 118/78; PULSE 77; O2SAT 96; BMI 35.7
--- NOTE | 2023-11-22 10:37 | MHC.PC.OV ---
Vital Signs 11/22/23 10:37 Height 5 ft 1.5 in Weight 192 lb BMI 35.7 BP 118/78 Blood Pressure Location Rt brachial Position Sitting Pulse 77 Pulse Source Pulse Oximeter Pulse Oximetry (%) 96 Oxygen Delivery Method Room Air Intake Visit Reasons: 6 month follow up Intake Note: Pt is here today for 6 months follow up visit. Allergies amoxicillin [AMOXICILLIN] Allergy (Intermediate, Verified 11/22/23 10:39) HIVES latex Allergy (Intermediate, Verified 11/22/23 10:39) Redness of Skin, irritation Medication List - Last Reconciled 11/22/23 by Ni Garduno MD acetaminophen 650 mg (2 x 325 mg) PO Q6H PRN 30 days albuterol sulfate 90 mcg/actuation 2 puffs inhalation Q4H PRN alprazolam 0.25 mg (1/2 x 0.5 mg) PO BEDTIME PRN atorvastatin 20 mg PO DAILY budesonide-formoterol 80-4.5 mcg/actuation (Symbicort) 2 puffs PO BID citalopram 20 mg PO DAILY clindamycin HCl 600 mg (2 x 300 mg) PO ONCE clobetasol 0.05% 1 appl topical BEDTIME docusate sodium 100 mg PO BID furosemide 20 mg PO DAILY latanoprost 0.005% 1 drp ophthalmic (eye) BEDTIME lidocaine 5% 2 patches topical DAILY losartan 50 mg PO BID magnesium oxide 400 mg PO BID naproxen 500 mg PO BID PRN 10 days omeprazole 20 mg PO DAILY potassium chloride ER 3 tablets p.o. daily timolol maleate 0.5% 1 drp ophthalmic (eye) DAILY@0630 Tobacco use date assessed: 11/22/23 Fall risk assessment: No Falls in past year Last assessed Fall Risk: 11/22/23 Dental Screening Dental Screen Date: 11/22/23 Did you have a dental visit in the last 12 months?: Yes Did you have a dental problem in the last 6 months where you did not have access to dental care?: No Was dental information given to patient?: Patient has dentist HPI 6 month follow up HPI Details Pt presents for HTN, hyperlipid, asthma, stable on meds. Patient has been under lot of stress feeling anxious and overwhelmed taking care of her with Parkinson's disease. She denies suicide ideation has been taking citalopram but also reports drinking at least 2 glasses of wine every night to calm her down. 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 [facility] Medical History (Updated 11/22/23 @ 11:18 by Ni Garduno MD) Hypermagnesemia Rib pain on left side HLD (hyperlipidemia) Glaucoma Elevated LFTs Osteoarthritis of hips, bilateral Nevus Annual physical exam Postmenopausal Knee pain, chronic Ramon's esophagus Plantar fasciitis of left foot Hypercholesterolemia Anxiety HTN (hypertension) Surgical History History of total left hip arthroplasty Hx of eye surgery H/O colonoscopy History of esophagogastroduodenoscopy (EGD) Family History Father Bladder cancer Mother No problems noted. Maternal Grandmother COPD (chronic obstructive pulmonary disease) Myocardial infarction Maternal Grandfather No problems noted. Paternal Grandfather No problems noted. Paternal Grandmother No problems noted. 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 1. Little interest or pleasure in doing things: not at all 2. Feeling down, depressed, or hopeless: not at all 3. Trouble falling or staying asleep, or sleeping too much: not at all 4. Feeling tired or having little energy: not at all 5. Poor appetite or overeating: not at all 6. Feeling bad about yourself - or that you are a failure or have let yourself or your family down: not at all 7. Trouble concentrating on things, such as reading the newspaper or watching television: not at all 8. Moving or speaking so slowly that other people could have noticed. Or the opposite - being so fidgety or restless that you have been moving around a lot more than usual: not at all 9. Thoughts that you would be better off or of hurting yourself in some way: not at all Total score: 0 Depression Screening Interpretation: Negative Depression Screening Done: Yes Source: Developed by Drs. Mason Borges, Kathrin Jimenes, Juan Ibarra and colleagues, with an educational meli from [employer]. Thrive Questionnaire Date Thrive assessed: 11/22/23 I am a: Patient What is your living situation today?: I have a steady place to live Within the past 12 months, did the food you bought not last and you didn't have the money to get more?: Never true Within the past 12 months, did you worry whether your food would run out before you got money to buy more?: Never true Do you have trouble paying for medicines?: No Do you have trouble getting transportation to medical appointments?: No Do you have trouble paying your heating and electricity bill?: No Do you have trouble taking care of your child, family member or friend?: No Do you have trouble with day-to-day activities such as bathing, preparing meals, shopping, managing finances, etc.?: No Are you currently unemployed and looking for a job?: No Are you interested in more education?: No Please select the resources that you would like help with: None THRIVE Score: 0 AUDIT C Alcohol Use Questionnaire (AUDIT-C) 1. How often do you have a drink containing alcohol?: 2-4 times a month 2. How many drinks containing alcohol do you have on a typical day when you are drinking?: 1 or 2 3. How often do you have six or more drinks on one occasion?: Never Total Score: 2 LU-7 AMB Questionnaire LU-7 Date LU - 7 assessed: 11/22/23 Feeling nervous, anxious, or on edge: 0 = Not at all Not being able to stop or control worryin = Not at all Worrying too much about different things: 0 = Not at all Trouble relaxin = Not at all Being so restless that it is hard to sit still: 0 = Not at all Becoming easily annoyed or irritable: 0 = Not at all Feeling afraid as if something awful might happen: 0 = Not at all Total LU-7 score (0-4 normal; 5-9 mild; 10-14 moderate; 15-21 severe): 0 Source: Developed by Drs. Mason Borges, Kathrin Jimenes, Juan Ibarra and colleagues, with an educational meli from [employer]. Review of Systems Const All systems reviewed & are unremarkable except as noted in HPI and below Reports no additional complaints Eyes Reports no additional complaints ENT Reports no additional complaints Card Reports no additional complaints Resp Reports no additional complaints GI Reports no additional complaints Reports no additional complaints Physical exam (Primary Care) Vital Signs: Last Vital Signs Pulse 77 11/22/23 10:37 BP 118/78 11/22/23 10:37 Pulse Ox 96 11/22/23 10:37 Oxygen Delivery Method Room Air 11/22/23 10:37 BMI result Body Mass Index 35.7 Tobacco/Smoking Status: Tobacco use Status Tobacco use date assessed 11/22/23 11/22/23 10:43 Patient Tobacco Use Status Never used Tobacco 11/22/23 10:43 e-Cigarette/Vaping Use Never Used 11/22/23 10:43 PHQ-9: PHQ-9 Score PHQ-9: Total score 0 11/22/23 10:43 Depression Screening Interpretation: Negative Thrive Assessment: Date of Thrive Assessment Date Thrive assessed 11/22/23 11/22/23 10:43 Const General: no acute distress HENMT Head: Yes normal to inspection Face and sinus: Yes normal facial exam Eyes General: appearance normal, both eyes and all related structures Neck Neck: Yes supple Resp Effort & Inspection: normal respiratory effort Auscultation: clear to auscultation bilaterally Cardio Rhythm: regular rhythm Heart sounds: S1 normal heart sound present and S2 normal heart sound present GI Inspection: Yes normal to inspection Palpation (GI): Soft to palpation Percussion: Yes normal to percussion Auscultation: normal bowel sounds Assessment and Plan Assessment & Plan (1) Alcohol abuse: Code(s): F10.10 - Alcohol abuse, uncomplicated Plan: Cutting down on alcohol intake discussed with the patient stress management and counseling were recommended (2) Asthma: Comment: PFT [facility], mild reversible obstruction c/w asthma 02/17 Code(s): J45.909 - Unspecified asthma, uncomplicated Plan: Continue Symbicort (3) Hypercholesterolemia: Code(s): E78.00 - Pure hypercholesterolemia, unspecified Plan: Continue statin (4) HTN (hypertension): Code(s): I10 - Essential (primary) hypertension Plan: Continue current medications (5) Elevated LFTs: Comment: US fatty liver , hepatocellular disease 02/17 Code(s): R79.89 - Other specified abnormal findings of blood chemistry Plan: Decrease alcohol intake avoid NSAIDs and high carbohydrate diet (6) Hyperglycemia: Code(s): R73.9 - Hyperglycemia, unspecified Plan: Continue ADA diet increase exercise weight loss discussed with the patient return in 5 months with a fasting labs before Orders: Orders Comprehensive [place]. Panel Fast 5 Months E78.00 - Pure hypercholesterolemia, unspecified, F10.10 - Alcohol abuse, uncomplicated, I10 - Essential (primary) hypertension, J45.909 - Unspecified asthma, uncomplicated, R73.9 - Hyperglycemia, unspecified, R79.89 - Other specified abnormal findings of blood chemistry Hemoglobin A1c 5 Months E78.00 - Pure hypercholesterolemia, unspecified, F10.10 - Alcohol abuse, uncomplicated, I10 - Essential (primary) hypertension, J45.909 - Unspecified asthma, uncomplicated, R73.9 - Hyperglycemia, unspecified, R79.89 - Other specified abnormal findings of blood chemistry Complete Blood Count Auto Diff 5 Months E78.00 - Pure hypercholesterolemia, unspecified, F10.10 - Alcohol abuse, uncomplicated, I10 - Essential (primary) hypertension, J45.909 - Unspecified asthma, uncomplicated, R73.9 - Hyperglycemia, unspecified, R79.89 - Other specified abnormal findings of blood chemistry Coding Level of Care Code Est Pt Level 4 (91459) Diagnoses Alcohol abuse F10.10 Asthma J45.909 Hypercholesterolemia E78.00 HTN (hypertension) I10 Elevated LFTs R79.89 Hyperglycemia R73.9
== END 2023-11-22 11:23 | disposition home or self-care (01) ==
PROVIDERS: PCP Internal Medicine; Visit Provider Internal Medicine
DX: J45.909 Unspecified asthma, uncomplicated (principal); E78.00 Pure hypercholesterolemia, unspecified; I10 Essential (primary) hypertension; R73.9 Hyperglycemia, unspecified; F10.10 Alcohol abuse, uncomplicated
CPT/HCPCS: 99214

== ENCOUNTER 2024-04-23 09:21 | Outpatient (REF) | payer OTHER, SELFPAY ==
[2024-04-23 10:29] LABS: MANUAL DIFF FLAG NO
[2024-04-23 10:40] LABS: Basophils Percent Auto 0.7 % (0-2); Eosinophils Absolute Auto 0.1 X10*3/uL (0.0-0.4); Eosinophils Percent Auto 1.6 % (0-4); Hematocrit 41.8 % (37.0-47.0); Hemoglobin 13.6 g/dl (12.0-16.0); Imm Gran Abs Auto 0.01 X10*3/uL (0.00-0.03); Imm Gran Pct Auto 0.2 % (0.0-0.4); Lymphocytes Absolute Auto 1.4 X10*3/uL (1.2-4.9); Lymphocytes Percent Auto 32.2 % (20-40); Mean Corpuscular HGB Conc 32.5 g/dl (31.0-35.0); Mean Corpuscular Hemoglobin 31.1 pg (27.0-33.0); Mean Corpuscular Volume 95.4 fL (80.0-98.0); Monocytes Absolute Auto 0.4 X10*3/uL (0.1-1.2); Monocytes Percent Auto 8.7 % (2-11); Neutrophils Absolute Auto 2.4 x10*3/uL (2.0-8.3); Neutrophils Percent Auto 56.6 % (45-73); Platelet Count 165 X10*3/uL (160-400); Red Blood Count 4.38 X10*6/uL (4.20-5.50); White Blood Count 4.3 X10*3/uL (4.8-10.8)
[2024-04-23 10:57] LABS: Alanine Aminotransferase 33 U/L (0-31); Albumin Level 3.8 g/dL (3.5-5.0); Alkaline Phosphatase 94 U/L (39-117); Anion Gap 11 (12-20); Aspartate Amino Transferase 41 U/L (5-31); Bilirubin Total 1.5 mg/dL (0.0-1.0); Blood Urea Nitrogen 9 mg/dL (9-16); Calcium 8.9 mg/dL (8.4-10.2); Carbon Dioxide 28 mmol/L (22-29); Chloride 105 mmol/L (96-108); Estimated Glomerular Filt Rate > 60; Glucose Fasting 108 mg/dL (60-99); Potassium 4.3 mmol/L (3.3-5.1); Sodium 140 mmol/L (135-145); Total Protein 6.4 g/dL (6.5-8.0)
[2024-04-23 11:05] LABS: Estimated Average Glucose 111 mg/dL; Hemoglobin A1c % 5.5 % (<6.0)
== END 2024-04-23 09:22 | disposition home or self-care (01) ==
LOC: HO.HMGCLDS 09:21
PROVIDERS: PCP Internal Medicine; Visit Provider Internal Medicine
DX: F10.10 Alcohol abuse, uncomplicated (principal); J45.909 Unspecified asthma, uncomplicated; E78.00 Pure hypercholesterolemia, unspecified; I10 Essential (primary) hypertension; R73.9 Hyperglycemia, unspecified
CPT/HCPCS: 36415; 80053; 83036; 85025

== ENCOUNTER 2024-04-24 08:27 | Outpatient (AMB) | payer OTHER, SELFPAY ==
--- NOTE | 2024-04-24 08:31 | A.OFFPC_ITS ---
Vital Signs 04/24/24 08:33 Height 5 ft 1.5 in Weight 192 lb BMI 35.7 BP 110/74 Blood Pressure Location Lt brachial Position Sitting Pulse 70 Pulse Source Pulse Oximeter Pulse Oximetry (%) 95 Oxygen Delivery Method Room Air Intake Visit Reasons: Annual PE Intake Note: Pt is here today for her PE Allergies amoxicillin [AMOXICILLIN] Allergy (Intermediate, Verified 04/24/24 08:33) HIVES latex Allergy (Intermediate, Verified 04/24/24 08:33) Redness of Skin, irritation Medication List - Last Reconciled 04/24/24 by Ni Garduno MD alprazolam 0.25 mg (1/2 x 0.5 mg) PO BEDTIME PRN atorvastatin 20 mg PO DAILY budesonide-formoterol 80-4.5 mcg/actuation (Symbicort) 2 puffs PO BID citalopram 20 mg PO DAILY docusate sodium 100 mg PO BID furosemide 20 mg PO DAILY latanoprost 0.005% 1 drp ophthalmic (eye) BEDTIME lidocaine 5% 2 patches topical DAILY losartan 50 mg PO BID losartan 100 mg PO DAILY magnesium oxide 400 mg PO BID omeprazole 20 mg PO DAILY potassium chloride ER 30 mEq (3 x 10 mEq) PO DAILY timolol maleate 0.5% 1 drp ophthalmic (eye) DAILY@0630 Tobacco use date assessed: 04/24/24 Fall risk assessment: No Falls in past year Last assessed Fall Risk: 04/24/24 Dental Screening Dental Screen Date: 04/24/24 Did you have a dental visit in the last 12 months?: Yes Did you have a dental problem in the last 6 months where you did not have access to dental care?: No Was dental information given to patient?: Patient has dentist HPI Annual PE HPI Details Pt presents for PE. PFSH Medical History (Updated 04/24/24 @ 10:31 by Ni Garduno MD) Hypermagnesemia Rib pain on left side HLD (hyperlipidemia) Glaucoma Elevated LFTs Osteoarthritis of hips, bilateral Nevus Annual physical exam Postmenopausal Knee pain, chronic Ramon's esophagus Plantar fasciitis of left foot Hypercholesterolemia Anxiety HTN (hypertension) Surgical History (Updated 04/24/24 @ 08:56 by Ni Garduno MD) History of total left hip arthroplasty Hx of eye surgery H/O colonoscopy History of esophagogastroduodenoscopy (EGD) Family History Father Bladder cancer Mother No problems noted. Maternal Grandmother COPD (chronic obstructive pulmonary disease) Myocardial infarction Maternal Grandfather No problems noted. Paternal Grandfather No problems noted. Paternal Grandmother No problems noted. 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 1. Little interest or pleasure in doing things: not at all 2. Feeling down, depressed, or hopeless: not at all 3. Trouble falling or staying asleep, or sleeping too much: not at all 4. Feeling tired or having little energy: not at all 5. Poor appetite or overeating: not at all 6. Feeling bad about yourself - or that you are a failure or have let yourself or your family down: not at all 7. Trouble concentrating on things, such as reading the newspaper or watching television: not at all 8. Moving or speaking so slowly that other people could have noticed. Or the opposite - being so fidgety or restless that you have been moving around a lot more than usual: not at all 9. Thoughts that you would be better off or of hurting yourself in some way: not at all Total score: 0 Depression Screening Interpretation: Negative Depression Screening Done: Yes 81922 - PHQ-9 Billing: Yes Source: Developed by Drs. Mason Borges, Kathrin Jimenes, Juan Ibarra and colleagues, with an educational meli from [employer]. Thrive Questionnaire Date Thrive assessed: 04/24/24 I am a: Patient What is your living situation today?: I have a steady place to live Within the past 12 months, did the food you bought not last and you didn't have the money to get more?: Never true Within the past 12 months, did you worry whether your food would run out before you got money to buy more?: Never true Do you have trouble paying for medicines?: No Do you have trouble getting transportation to medical appointments?: No Do you have trouble paying your heating and electricity bill?: No Do you have trouble taking care of your child, family member or friend?: No Do you have trouble with day-to-day activities such as bathing, preparing meals, shopping, managing finances, etc.?: No Are you currently unemployed and looking for a job?: No Are you interested in more education?: No Please select the resources that you would like help with: None Currently or been in a relationship where the following occur: No concerns reported THRIVE Score: 0 AUDIT C Alcohol Use Questionnaire (AUDIT-C) 1. How often do you have a drink containing alcohol?: 4 or more times a week 2. How many drinks containing alcohol do you have on a typical day when you are drinking?: 1 or 2 3. How often do you have six or more drinks on one occasion?: Daily or almost daily Total Score: 8 LU-7 AMB Questionnaire LU-7 Date LU - 7 assessed: 04/24/24 Feeling nervous, anxious, or on edge: 1 = Several days Not being able to stop or control worryin = Several days Worrying too much about different things: 1 = Several days Trouble relaxin = Several days Being so restless that it is hard to sit still: 0 = Not at all Becoming easily annoyed or irritable: 1 = Several days Feeling afraid as if something awful might happen: 0 = Not at all Total UL-7 score (0-4 normal; 5-9 mild; 10-14 moderate; 15-21 severe): 5 Source: Developed by Drs. Mason Borges, Kathrin Jimenes, Juan Ibarra and colleagues, with an educational meli from [employer]. Review of Systems Const All systems reviewed & are unremarkable except as noted in HPI and below Reports no additional complaints Physical exam (Primary Care) Vital Signs: Last Vital Signs Pulse 70 04/24/24 08:33 BP 110/74 04/24/24 08:33 Pulse Ox 95 04/24/24 08:33 Oxygen Delivery Method Room Air 04/24/24 08:33 BMI result Body Mass Index 35.7 Tobacco/Smoking Status: Tobacco use Status Tobacco use date assessed 04/24/24 04/24/24 08:37 Patient Tobacco Use Status Never used Tobacco 04/24/24 08:37 e-Cigarette/Vaping Use Never Used 04/24/24 08:37 PHQ-9: PHQ-9 Score PHQ-9: Total score 0 04/24/24 08:37 Depression Screening Interpretation: Negative Thrive Assessment: Date of Thrive Assessment Date Thrive assessed 04/24/24 04/24/24 08:37 Currently or been in a relationship where the following occur: No concerns reported Const General: no acute distress HENMT Head: Yes normal to inspection General nose exam: Normal external nose present Mouth: Normal oral and palatal mucosa present Throat: Yes posterior oropharynx normal Eyes General: appearance normal, both eyes and all related structures Neck Neck: Yes supple Resp Effort & Inspection: normal respiratory effort Auscultation: clear to auscultation bilaterally Cardio Rhythm: regular rhythm Heart sounds: S1 normal heart sound present and S2 normal heart sound present GI Inspection: Yes normal to inspection Palpation (GI): Soft to palpation Percussion: Yes normal to percussion Auscultation: normal bowel sounds Assessment and Plan Assessment & Plan (1) HTN (hypertension): Code(s): I10 - Essential (primary) hypertension Plan: cont Losartan (2) Elevated LFTs: Comment: US fatty liver , hepatocellular disease 02/17, excessive ETOH use Code(s): R79.89 - Other specified abnormal findings of blood chemistry Plan: avoiding ETOH, NSAIDs (3) Hypercholesterolemia: Code(s): E78.00 - Pure hypercholesterolemia, unspecified Plan: cont Atorvastatin (4) Annual physical exam: Code(s): Z00.00 - Encounter for general adult medical examination without abnormal findings Plan: well balanced diet, regular exercise, f/u 6 months Medications: New losartan 100 mg PO DAILY 90 tabs 3RF Discontinued losartan Discontinued Reason: Doctor's Order 50 mg PO BID 180 tabs 3RF Coding Level of Care Code Est Pt Prev Care >65y(28503) Diagnoses HTN (hypertension) I10 Elevated LFTs R79.89 Hypercholesterolemia E78.00 Annual physical exam Z00.00
[2024-04-24 08:33] VITALS: BP 110/74; PULSE 70; O2SAT 95; BMI 35.7
== END 2024-04-24 09:23 | disposition home or self-care (01) ==
PROVIDERS: PCP Internal Medicine; Visit Provider Internal Medicine
DX: I10 Essential (primary) hypertension (principal); R79.89 Other specified abnormal findings of blood chemistry; E78.00 Pure hypercholesterolemia, unspecified; Z00.00 Encounter for general adult medical examination without abnormal findings
CPT/HCPCS: 99397

== ENCOUNTER 2024-05-27 12:29 | Outpatient (AMB) | payer OTHER, SELFPAY ==
--- NOTE | 2024-05-27 12:37 | MHC.OFFWIV ---
Intake Vital Signs 05/27/24 12:38 Height 5 ft 1.5 in Weight 192 lb 6 oz BMI 35.8 BP 116/60 Blood Pressure Location Rt brachial Position Sitting Pulse 94 Pulse Source Pulse Oximeter Pulse Oximetry (%) 96 Oxygen Delivery Method Room Air Intake Visit Reasons: EP LT leg swelling, warm to touch Intake Note: Patient is here today for sick visit for swelling in left leg and warm to touch. Patient Tobacco Use Status: Never used Tobacco Sap Portal Developer: Not Required per policy Accompanied by: Self / Same As Patient Allergies amoxicillin [AMOXICILLIN] Allergy (Intermediate, Verified 05/27/24 12:38) HIVES latex Allergy (Intermediate, Verified 05/27/24 12:38) Redness of Skin, irritation Do you need a note to return to daycare/school/sports/work: No HPI EP LT leg swelling, warm to touch HPI Details This note is constructed using voice recognition software. While every effort has been made to ensure accuracy, automatic spreader operator errors may have been included. The patient is a 69 year old female who presents to the clinic today with bilateral lower extremity edema. She notes that she has had a longstanding history of edema and has been treated on furosemide. She has not been taking her furosemide regularly, and in fact aside from today has not taken it in several months. She notes that the swelling has been getting worse over that period of time, and her son had noticed the left leg being swollen and noticed that she had some redness to the area, and was concerned and advised her that she seek treatment. Her son-in-law, also noticed that her legs were swollen, and had her sit down with elevating the legs to help redistribute the fluid. Neither 1 of them had been advised that she had not been taking her water pill. With the swelling, she has had some mild redness to the area, color distribution that she reports has been very similar to her chronic edema that she has had and been treating for well over 1 year. She denies pain, itch, injury to the area. She did take her furosemide dose today, as she knew that she was getting evaluated. [facility] Medical History (Updated 05/27/24 @ 13:19 by Maye Ramos NP) Hypermagnesemia Rib pain on left side HLD (hyperlipidemia) Glaucoma Elevated LFTs Osteoarthritis of hips, bilateral Nevus Annual physical exam Postmenopausal Knee pain, chronic Ramon's esophagus Plantar fasciitis of left foot Hypercholesterolemia Anxiety HTN (hypertension) Surgical History (Updated 04/24/24 @ 08:56 by Ni Garduno MD) History of total left hip arthroplasty Hx of eye surgery H/O colonoscopy History of esophagogastroduodenoscopy (EGD) Family History Father Bladder cancer Mother No problems noted. Maternal Grandmother COPD (chronic obstructive pulmonary disease) Myocardial infarction Maternal Grandfather No problems noted. Paternal Grandfather No problems noted. Paternal Grandmother No problems noted. 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 Neck: Yes normal visual inspection, Yes full ROM, Yes no lymphadenopathy and Yes no JVD Resp Effort & Inspection: normal respiratory effort and able to speak in complete sentences Auscultation: clear to auscultation bilaterally Cardio Jugular venous distension: no JVD Palpation: normal PMI Rate: regular rate Heart sounds: S1 normal heart sound present, S2 normal heart sound present, no click, no gallops, no murmurs and no rubs GI Inspection: Yes normal to inspection Palpation (GI): Soft to palpation and nontender Percussion: Yes normal to percussion Auscultation: normal bowel sounds Skin General skin exam: no rashes or lesions noted, elasticity normal and turgor normal Neuro General: patient oriented x3 Extrem Other: Plus two bilateral lower extremity edema with trophic changes bilaterally. Full range of motion of foot, ankle, and knee bilaterally. Negative Homans. General: Yes full ROM, Yes capillary refill normal and Yes normal exam except as noted Psych Appearance: grossly normal Mental Status: mental status grossly normal Speech and movement: Normal speech and movement present Affect: normal affect Assessment & Plan Assessment & Plan (1) Edema: Code(s): R60.9 - Edema, unspecified Qualifiers: Edema type: unspecified Qualified Code(s): R60.9 - Edema, unspecified Plan: Extensively reviewed records including last several notes from primary care provider. Chronic in nature with slight increase over time due to noncompliance with medication. Patient did take her medication today and notes that there is some improvement. Advised patient to take her furosemide every day for the next 3 additional days, and then may resume back to every other day as previously instructed to by her primary care provider. Advised use of compression stockings to help facilitate as well as leg elevation. Advised follow up with PCP with worsening symptoms or failure to resolve. Advised emergency room should she develop chest pain, dyspnea, or any other concerning features. Plan See above for full details and plan. Coding Level of Care Code Est Pt Level 4 (98997) Diagnoses Edema, unspecified type R60.9 Edema type: unspecified Time Spent (min) 25 Comment Including time spent reviewing the chart.
[2024-05-27 12:38] VITALS: BP 116/60; PULSE 94; O2SAT 96; BMI 35.8
== END 2024-05-27 13:14 | disposition home or self-care (01) ==
PROVIDERS: PCP Internal Medicine; Visit Provider Registered Nurse
DX: R60.9 Edema, unspecified (principal)

== ENCOUNTER → 2024-05-27 12:29 | Outpatient (BNVA) | payer OTHER, SELFPAY | PROVIDERS: PCP Internal Medicine ==

== ENCOUNTER 2024-08-30 07:47 | Outpatient (REF) | payer OTHER, SELFPAY ==
--- NOTE | ~2024-08-30 | MM_ITS ---
EXAMINATION: MM SCREENING DIGITAL BREAST TOMOSYNTHESIS, BILATERAL CLINICAL INFORMATION: Screening. Asymptomatic. COMPARISON: Mammography: Comparison is made with available priors TECHNIQUE: Digital breast mammography with tomosynthesis is performed in both the craniocaudal and mediolateral oblique views along with computer-aided detection (CAD). FINDINGS: There are scattered areas of fibroglandular density (ACR BI-RADS breast composition Category b). There are no significant masses, abnormal calcifications, or other abnormalities. MM/MM tomosynthesis screening BI IMPRESSION: No mammographic evidence of malignancy. ASSESSMENT: BI-RADS BI-RADS 1 - Negative RECOMMENDATION: Routine annual mammography screening. 1 year F/U This examination should not preclude the clinical evaluation of a suspicious palpable abnormality. This patient's information was entered into a reminder system with a target due date for their next mammogram. Electronically signed by: Mary Diaz DO 09/08/2024 07:29 AM MAUREEN
== END 2024-08-30 07:48 | disposition home or self-care (01) ==
LOC: HO.MAMMO 07:47
PROVIDERS: PCP Internal Medicine; Visit Provider Internal Medicine
DX: Z12.31 Encounter for screening mammogram for malignant neoplasm of breast (principal)
CPT/HCPCS: 77063; 77067

== ENCOUNTER → 2024-08-30 08:00 | Outpatient (BNV) | payer OTHER, SELFPAY | PROVIDERS: PCP Internal Medicine; Visit Provider Internal Medicine | DX: Z12.31 Encounter for screening mammogram for malignant neoplasm of breast (principal) | CPT/HCPCS: 77063; 77067 ==

== ENCOUNTER 2024-10-21 08:03 | Outpatient (AMB) | payer OTHER, SELFPAY ==
--- OUTSIDE RECORDS SUMMARY | 2024-10-21 08:08 | XMS_ITS ---
Author Organization [facility] Address [address] [place] [address] Care Team Providers Care Crematory Attendant Name Role Phone Ni Garduno MD Primary Care Provider Unavaila jackelin Cobos Jr, Billy Evans REASON FOR VISIT pathology Encounters Encounter Location Date Provider Diagnosis [facility] [address] [place] [address] [address] [place] [address] 08/16/2023 Billy Cobos Jr PLAN OF TREATMENT Next Appt Details Provider Name:Billy roe Jr, 03/24/2025 09:20:00 AM, [address] [place] [address], [address], [place], [address],
--- OUTSIDE RECORDS SUMMARY | 2024-10-21 08:08 | XMS_ITS ---
Author Organization [facility] Address [address] [place] [address] Care Team Providers Care Field Auditor Name Role Phone Ni Garduno MD Primary Care Provider Billy Bullock Jr Unavailable [phone] ALLERGIES Allergen (clinical drug ingredient) Drug/Non Drug Allergy documented on EMR Reaction Allergy Type Onset Date Status amoxicillin Amoxicillin Unknown Drug Allergy Act irasema REASON FOR VISIT Patient presents today for INCONTINENCE MEDICATIONS Medication SIG (Take, Route, Frequency, Duration) Notes Start Date End Date Status Omeprazole 20 take one capsule by mouth once a day Orally Once a day for 90 days Active MiraLax (colon prep) 8.3 ounce ((238) grams mixed with Gatorade or Crystal Light orally begin at 5:00 p.m. the day before the procedure for 1 day 06/21/2023 Active Latanoprost Active Timolol Maleate Acti ve Citalopram Hydrobromide Active ALPRAZolam 0.25 MG TAKE 1 TABLET BY GRACIE TH 3 TIMES A DAY NEEDED Oral prn Not-Taking Omeprazole 20 MG TAKE 1 CAPSULE BY [facility] EVERY DAY FOR 90 DAYS for 90 Active Losartan Potassium 50 MG 1 tablet Orally Once a day for 30 day(s) Active Potassium & Magnesium Aspartat 250-250 MG 1 capsule with a meal Orally Once a day for 30 day(s) Active Calcium 600 MG 1 tablet with meals Orally Twice a day Not-Taking SOCIAL HISTORY Sex Assigned At : Social History Observation Description Sex Assigned At Unknown Alcohol Screen Question Answer Notes Did you have a drink contain ing alcohol in the past year? Yes How often did you have a dri nk containing alcohol in the past year? 2 to 4 times a month (2 points) How many drinks did you have on a typical day when you were drinking in the past year? 1 or 2 drinks (0 point) How often did you have 6 or more drinks on one occasion in the past year? Never (0 point) Points 2 Interpretation Negative PROBLEMS Problem Type ICD Code Onset Dates Problem Status W/U Status Risk SNOMED Code Notes Problem Irritable bowel syndrome with diarrhea (K58.0) Active confirmed 301636521 Problem 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) Active confirmed [id number] Problem Screening for colon cancer (Z12.11) Active confirmed [id number] VITAL SIGNS Temperature 97.1 degrees Fahrenheit 03/25/20 24 Blood pressure systolic 000 mm Hg 03/25/20 24 Blood pressure diastolic 00 mm Hg 024 Height 61.5 in 03/25/2024 Weight 190 lb 4 oz lbs 03/25/2024 BMI 35.36 kg/m2 03/25/2024 Encounters Encounter Location Date Provider Diagnosis [facility] [address] [place] [address] 03/25/2024 Billy Cobos Jr Irritable bowel syndrome with diarrhea K58.0 ; Ramon's esophagus without dysplasia K22.70 and Screening for colon cancer Z12.11 ASSESSMENTS Encounter Date Diagnosis Assessment Notes Treatment Notes Treatment Clinical Notes 03/25/2024 Irritable bowel syndrome with diarrhea (ICD-10 - K58.0) 03/25/2024 Ramon's esophagus without dysplasia (ICD-10 - K22.70) 03/25/2024 Screening for colon cancer (ICD-10 - Z12.11) PLAN OF TREATMENT Next Appt Details Follow Up: 1 Year, Reason: Provider Name:Billy roe Jr, 03/24/2025 09:20:00 AM, [address], [address], [place], [address],
--- OUTSIDE RECORDS SUMMARY | 2024-10-21 08:08 | XMS_ITS ---
Author Organization [facility] Address [address] [place] [address] Care Team Providers Care Construction Scheduler Name Role Phone Ni Garduno MD Primary Care Provider Billy Bullock Jr REASON FOR VISIT screening PROBLEMS Problem Type ICD Code Onset Dates Problem Status W/U Status Risk SNOMED Code Notes Problem Personal history of colonic polyps (Z86.010) Active confirmed History of polyp of colon (situation) (670292949) Encounters Encounter Location Date Provider Diagnosis [facility] [address] [place], [place] [id number] 08/11/2023 Billy Cobos Jr Encounter for screening colonoscopy Z12.11 ; Personal history of colonic polyps Z86.010 and Colon polyps K63.5 ASSESSMENTS Encounter Date Diagnosis Assessment Notes Treatment Notes Treatment Clinical Notes 08/11/2023 Encounter for screening colonoscopy (ICD-10 - Z12.11) 08/11/2023 Personal history of colonic polyps (ICD-10 - Z86.010) 08/11/2023 Colon polyps (ICD-10 - K63.5) PLAN OF TREATMENT Next Appt Details Provider Name:Billy roe Jr, 03/24/2025 09:20:00 AM, [address], [address], [place], [address],
--- OUTSIDE RECORDS SUMMARY | 2024-10-21 08:08 | XMS_ITS | Patient Health Record ---
Author Organization [facility] Address [address] [place] [address] Care Team Providers Care Low Pressure Firer Name Role Phone Ni Garduno MD Primary Care Provider Unavaila Billy Mg Jr Unavailable ALLERGIES Allergen (clinical drug ingredient) Drug/Non Drug Allergy documented on EMR Reaction Allergy Type Onset Date Status amoxicillin Amoxicillin Unknown Drug Allergy Act irasema REASON FOR REFERRAL Referring Provider First Name Ni Referring Provider Last Name Shaan Referring Provider Speciality Internal M edicine Referred Organization [facility] Referred Provider Billy Nazario Jr Referred Address [address] [place] [address],[address],[place],[address], Referred Provider Specialty Gastroentero logy General Notes Kylie Andrade 024 11:55:50 AM EDT > SPOKE WITH LENORE AT DR [facility]AMAS OFFIC [id number] AND REQUESTED A [employer] REFERRAL BE FAXED TO OUR OFFICE FOR APPT WITH DR NAZARIO ON 03-25-2024 Referral Priority Routine MEDICATIONS Medication SIG (Take, Route, Frequency, Duration) Notes Start Date End Date Status Omeprazole 20 take one capsule by mouth once a day Orally Once a day for 90 days Active MiraLax (colon prep) 8.3 ounce ((238) grams mixed with Gatorade or Crystal Light orally begin at 5:00 p.m. the day before the procedure for 1 day 06/21/2023 Active ALPRAZolam 0.25 MG TAKE 1 TABLET BY GRACIE 3 TIMES A DAY NEEDED Oral prn Not-Taking Omeprazole 20 MG TAKE 1 CAPSULE BY [facility] EVERY DAY FOR 90 DAYS for 90 Active Latanoprost Active Losartan Potassium 50 MG 1 tablet Orally Once a day for 30 day(s) Active Timolol Maleate Acti ve Citalopram Hydrobromide Active Potassium & Magnesium Aspartat 250-250 MG 1 capsule with a meal Orally Once a day for 30 day(s) Active Calcium 600 MG 1 tablet with meals Orally Twice a day Not-Taking IMMUNIZATIONS Vaccine Route Administration Date Status Comme nts Influenza Unknown 05/28/2019 Administered Influenza Unknown 05/28/2021 Administered Influenza Unknown 06/15/2022 Administered Influenza Unknown 06/07/2023 Administered SOCIAL HISTORY Sex Assigned At : Social [...] confirmed History of polyp of colon (situation) (374043494) Problem 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) Active confirmed 274501007 Problem Irritable bowel syndrome with diarrhea (K58.0) Active confirmed 031266704 Problem Gastroesophageal reflux disease without esophagitis (K21.9) Active confirmed 674295561 Problem Rectal urgency (R15.2) Active confirmed 78310392 Problem Screening for colon cancer (Z12.11) Active confirmed 673167336 VITAL SIGNS Temperature 97.1 degrees Fahrenheit 03/25/2024 Blood pressure diastolic 00 mm Hg 03/25/2024 Height 61.5 in 03/25/2024 Blood pressure systolic 000 mm Hg 03/25/2024 Weight 190 lb 4 oz lbs 03/25/2024 BMI 35.36 kg/m2 03/25/2024 Encounters Encounter Location Date Provider Diagnosis [facility] [address] [place] [id number] 03/25/2024 Billy Nazario Jr Irritable bowel syndrome with diarrhea K58.0 ; Ramon's esophagus without dysplasia K22.70 and Screening for colon cancer Z12.11 ASSESSMENTS Encounter Date Diagnosis Assessment Notes Treatment Notes Treatment Clinical Notes 03/25/2024 Ramon's esophagus without dysplasia (ICD-10 - K22.70) 03/25/2024 Irritable bowel syndrome with diarrhea (ICD-10 - K58.0) 03/25/2024 Screening for colon cancer (ICD-10 - Z12.11) PLAN OF TREATMENT Future Test Test Name Order Date UPPER GI ENDOSCOPY 03/28/2014 COLONOSCOPY 05/04/2018 UPPER GI ENDOSCOPY 01/29/2020 COLONOSCOPY 06/21/2023 Next Appt Details Provider Name:Billy roe Jr, 03/24/2025 09:20:00 AM, [address] [place] [address], [address], [place], [address], Insurance Providers Payer Name Payer Address Payer Phone Subscriber Number Group Number Insured Name Patient Relationship to Insured Coverage Start Date Coverage End Date [employer] [address] [place] [address] [phone] [id number] DILIP ROBB Self - patient is the insured MEDICAL (GENERAL) HISTORY Medical History History ICD Code Colon polyps, colonoscopy , multiple adenomas, three-year followup 08/22 Anxiety Tubular adenoma w/focal high-grade dyspl alesha -removed 07/2003 Ramon's esophagus, EGD 01/27 12/15, biopsies negative for intestinal metaplasia, five-year followup 02/19 Hypertension Hyperlipidemia Osteoarthritis Surgical History Surgery Date(Month/Year) Bilateral cataract surgery hip replacement left
[2024-10-21 08:15] VITALS: BP 130/82; PULSE 77; O2SAT 98
--- NOTE | 2024-10-21 08:15 | AM.OFFWIN_ITS ---
Intake Vital Signs 10/21/24 08:15 Weight 187 lb BP 130/82 Blood Pressure Location Lt brachial Position Sitting Pulse 77 Pulse Source Pulse Oximeter Pulse Oximetry (%) 98 Oxygen Delivery Method Room Air Intake Visit Reasons: EP Ear flush Intake Note: Patient here for difficulty hearing for a couple of weeks. Patient Tobacco Use Status: Never used Tobacco Allergies amoxicillin [AMOXICILLIN] Allergy (Intermediate, Verified 10/21/24 08:21) HIVES latex Allergy (Intermediate, Verified 10/21/24 08:21) Redness of Skin, irritation Do you need a note to return to daycare/school/sports/work: No HPI HPI Comments History of Present Illness Details 69 y/o female patient who presents to [facility] walk [facility] clinic with c/o B/L Ear blockage. Pt asking to have her ears irrigated. She has tried OTC Debrox Drops for 2 weeks with no relief. [facility] Medical History (Updated 10/21/24 @ 08:29 by Pearl Mathias NP) Cerumen impaction Hypermagnesemia Rib pain on left side HLD (hyperlipidemia) Glaucoma Elevated LFTs Osteoarthritis of hips, bilateral Nevus Annual physical exam Postmenopausal Knee pain, chronic Ramon's esophagus Plantar fasciitis of left foot Hypercholesterolemia Anxiety HTN (hypertension) Surgical History (Updated 04/24/24 @ 08:56 by Ni Garduno MD) History of total left hip arthroplasty Hx of eye surgery H/O colonoscopy History of esophagogastroduodenoscopy (EGD) Family History Father Bladder cancer Mother No problems noted. Maternal Grandmother COPD (chronic obstructive pulmonary disease) Myocardial infarction Maternal Grandfather No problems noted. Paternal Grandfather No problems noted. Paternal Grandmother No problems noted. 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 Cognitive needs: No Hearing needs: No Vision needs: Yes Review of Systems Const All systems reviewed & are unremarkable except as noted in HPI and below Physical Exam Vital Signs: Last Vital Signs Pulse 77 10/21/24 08:15 BP 130/82 10/21/24 08:15 Pulse Ox 98 10/21/24 08:15 Oxygen Delivery Method Room Air 10/21/24 08:15 Const General: cooperative and no acute distress Nutritional Appearance: obese Orientation/consciousness: patient oriented x3 HEENT Head: Yes normocephalic Ears: external ears normal and TM abnormal obstructed by cerumen bilateral Neuro General: patient oriented x3, gait normal and moves all extremities Psych Speech and movement: Normal speech and movement present Office Procedures Cerumen Removal From which ear canal was the cerumen removed: bilateral Removal: irrigation Notes: patient tolerated procedure well [id number] Irrigation/Lavage Assessment & Plan Assessment & Plan (1) Cerumen impaction: Code(s): H61.20 - Impacted cerumen, unspecified ear Qualifiers: Laterality: bilateral Qualified Code(s): H61.23 - Impacted cerumen, bilateral Plan: B/L Ear lavage done, Pt tolerated procedure well B/L TM clear and intact. Acetaminophen PRN for pain relief. Coding Level of Care Code Est Pt Level 4 (84741) Diagnoses Bilateral impacted cerumen H61.23 Laterality: bilateral CPT Codes Office Procedure - CPT: 78302-Rgs Irrigation/Lavage ([id number]) Time Spent (min) 20
== END 2024-10-21 08:59 | disposition home or self-care (01) ==
PROVIDERS: PCP Internal Medicine; Visit Provider Nurse Practitioner Family
DX: H61.23 Impacted cerumen, bilateral (principal)

== ENCOUNTER → 2024-10-21 08:03 | Outpatient (BNVA) | payer OTHER, SELFPAY | PROVIDERS: PCP Internal Medicine | DX: H61.23 Impacted cerumen, bilateral (principal) | CPT/HCPCS: 69209 ==

== ENCOUNTER 2024-11-01 09:24 | Outpatient (AMB) | payer OTHER, SELFPAY ==
[2024-11-01 09:30] VITALS: BP 112/70; PULSE 93; RESP 18; TEMP 36.6; O2SAT 96; BMI 34.2
--- NOTE | 2024-11-01 09:30 | A.OFFPC_ITS ---
Vital Signs 11/01/24 09:30 Height 5 ft 1.5 in Weight 184 lb BMI 34.2 BP 112/70 Blood Pressure Location Rt brachial Position Sitting Respiration 18 Pulse 93 Pulse Source Pulse Oximeter Temp 97.9 F Temp Source Oral Pulse Oximetry (%) 96 Oxygen Delivery Method Room Air Intake Visit Reasons: 6 month follow up Intake Note: Pt is here today for 6 months follow up viist. Allergies amoxicillin [AMOXICILLIN] Allergy (Intermediate, Verified 11/01/24 09:30) HIVES latex Allergy (Intermediate, Verified 11/01/24 09:30) Redness of Skin, irritation Medication List - Last Reconciled 11/01/24 by Ni Garduno MD alprazolam 0.25 mg (1/2 x 0.5 mg) PO BEDTIME PRN atorvastatin 20 mg PO DAILY budesonide-formoterol 80-4.5 mcg/actuation (Symbicort) 2 puffs PO BID citalopram 20 mg PO DAILY docusate sodium 100 mg PO BID furosemide 20 mg PO DAILY latanoprost 0.005% 1 drp ophthalmic (eye) BEDTIME lidocaine 5% 2 patches topical DAILY losartan 100 mg PO DAILY magnesium oxide 400 mg PO BID omeprazole 20 mg PO DAILY potassium chloride ER 30 mEq (3 x 10 mEq) PO DAILY timolol maleate 0.5% 1 drp ophthalmic (eye) DAILY@0630 Tobacco use date assessed: 11/01/24 Fall risk assessment: No Falls in past year Last assessed Fall Risk: 11/01/24 Dental Screening Dental Screen Date: 11/01/24 Did you have a dental visit in the last 12 months?: Yes Did you have a dental problem in the last 6 months where you did not have access to dental care?: No Was dental information given to patient?: Patient has dentist HPI 6 month follow up HPI Details Patient presents for the follow-up of hypertension hyperlipidemia chronic asthma stable on current medications. She has been taking care of her with Parkinson's disease and has been under lot of stress. [facility] Medical History Cerumen impaction Hypermagnesemia Rib pain on left side HLD (hyperlipidemia) Glaucoma Elevated LFTs Osteoarthritis of hips, bilateral Nevus Annual physical exam Postmenopausal Knee pain, chronic Ramon's esophagus Plantar fasciitis of left foot Hypercholesterolemia Anxiety HTN (hypertension) Surgical History History of total left hip arthroplasty Hx of eye surgery H/O colonoscopy History of esophagogastroduodenoscopy (EGD) Family History Father Bladder cancer Mother No problems noted. Maternal Grandmother COPD (chronic obstructive pulmonary disease) Myocardial infarction Maternal Grandfather No problems noted. Paternal Grandfather No problems noted. Paternal Grandmother No problems noted. 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 1. Little interest or pleasure in doing things: not at all 2. Feeling down, depressed, or hopeless: not at all 3. Trouble falling or staying asleep, or sleeping too much: not at all 4. Feeling tired or having little energy: not at all 5. Poor appetite or overeating: not at all 6. Feeling bad about yourself - or that you are a failure or have let yourself or your family down: not at all 7. Trouble concentrating on things, such as reading the newspaper or watching television: not at all 8. Moving or speaking so slowly that other people could have noticed. Or the opposite - being so fidgety or restless that you have been moving around a lot more than usual: not at all 9. Thoughts that you would be better off or of hurting yourself in some way: not at all Total score: 0 Depression Screening Interpretation: Negative Depression Screening Done: Yes 12463 - PHQ-9 Billing: Yes Source: Developed by Drs. Mason Borges, Kathrin Jimenes, Juan Ibarra and colleagues, with an educational meli from [employer]. Thrive Questionnaire Date Thrive assessed: 11/01/24 I am a: Patient What is your living situation today?: I have a steady place to live Within the past 12 months, did the food you bought not last and you didn't have the money to get more?: Never true Within the past 12 months, did you worry whether your food would run out before you got money to buy more?: Never true Do you have trouble paying for medicines?: No Do you have trouble getting transportation to medical appointments?: No Do you have trouble paying your heating and electricity bill?: No Do you have trouble with day-to-day activities such as bathing, preparing meals, shopping, managing finances, etc.?: No Are you currently unemployed and looking for a job?: No Are you interested in more education?: No Please select the resources that you would like help with: None Currently or been in a relationship where the following occur: No concerns reported THRIVE Score: 0 AUDIT C Alcohol Use Questionnaire (AUDIT-C) 1. How often do you have a drink containing alcohol?: 4 or more times a week 2. How many drinks containing alcohol do you have on a typical day when you are drinking?: 3 or 4 3. How often do you have six or more drinks on one occasion?: Less than monthly Total Score: 6 LU-7 AMB Questionnaire LU-7 Date LU - 7 assessed: 11/01/24 Feeling nervous, anxious, or on edge: 1 = Several days Not being able to stop or control worryin = Several days Worrying too much about different things: 1 = Several days Being so restless that it is hard to sit still: 1 = Several days Becoming easily annoyed or irritable: 1 = Several days Feeling afraid as if something awful might happen: 1 = Several days Source: Developed by Drs. Mason Borges, Juan Santos and colleagues, with an educational meli from [employer]. LU-7 Assessment Billing LU-7 Assessment Tool: LU-7 Assessment 00963 Review of Systems Const All systems reviewed & are unremarkable except as noted in HPI and below ENT Reports no additional complaints Card Reports no additional complaints Resp Reports no additional complaints GI Reports no additional complaints Reports no additional complaints Physical exam (Primary Care) Vital Signs: Last Vital Signs Temp 97.9 F 11/01/24 09:30 Pulse 93 11/01/24 09:30 Resp 18 11/01/24 09:30 BP 112/70 11/01/24 09:30 Pulse Ox 96 11/01/24 09:30 Oxygen Delivery Method Room Air 11/01/24 09:30 BMI result Body Mass Index 34.2 Tobacco/Smoking Status: Tobacco use Status Tobacco use date assessed 11/01/24 11/01/24 09:32 Patient Tobacco Use Status Never used Tobacco 11/01/24 09:32 e-Cigarette/Vaping Use Never Used 11/01/24 09:32 PHQ-9: PHQ-9 Score PHQ-9: Total score 0 11/01/24 09:44 Depression Screening Interpretation: Negative Thrive Assessment: Date of Thrive Assessment Date Thrive assessed 11/01/24 11/01/24 09:44 Currently or been in a relationship where the following occur: No concerns reported Const General: no acute distress HENMT Head: Yes normal to inspection Face and sinus: Yes normal facial exam Neck Neck: Yes supple Resp Effort & Inspection: normal respiratory effort Auscultation: clear to auscultation bilaterally Cardio Rhythm: regular rhythm Heart sounds: S1 normal heart sound present and S2 normal heart sound present Coding Level of Care Code Est Pt Level 4 (56516) Diagnoses Asthma J45.909 HTN (hypertension) I10 Hypercholesterolemia E78.00 Anxiety F41.9 Additional Codes LU-7 Assessment Billing - LU-7 Assessment Tool: LU-7 Assessment 65919 ([id number]) PHQ-9 - 14933 - PHQ-9 Billing: Yes ([id number]) Assessment & Plan Assessment & Plan (1) Asthma: Comment: PFT [facility], mild reversible obstruction c/w asthma 02/17 Code(s): J45.909 - Unspecified asthma, uncomplicated Category: Medical Plan: Continue Symbicort (2) HTN (hypertension): Code(s): I10 - Essential (primary) hypertension Category: Medical Plan: Continue losartan (3) Hypercholesterolemia: Code(s): E78.00 - Pure hypercholesterolemia, unspecified Category: Medical Plan: Continue statin (4) Anxiety: Code(s): F41.9 - Anxiety disorder, unspecified Category: Medical Plan: Increase citalopram to 40 mg a day return for physical in 6 months. Patient will have a fasting blood work Orders: Orders Complete Blood Count Auto Diff Today E55.9 - Vitamin D deficiency, unspecified, E78.00 - Pure hypercholesterolemia, unspecified, I10 - Essential (primary) hypertension Vitamin D 25-OH Total Today E55.9 - Vitamin D deficiency, unspecified, E78.00 - Pure hypercholesterolemia, unspecified, I10 - Essential (primary) hypertension Comprehensive [place]. Panel Fast Today E55.9 - Vitamin D deficiency, unspecified, E78.00 - Pure hypercholesterolemia, unspecified, I10 - Essential (primary) hypertension Lipid Panel Today E55.9 - Vitamin D deficiency, unspecified, E78.00 - Pure hypercholesterolemia, unspecified, I10 - Essential (primary) hypertension Medications: New citalopram 40 mg PO DAILY 90 tabs 3RF Discontinued citalopram Discontinued Reason: Doctor's Order 20 mg PO DAILY 90 tabs 3RF
--- OUTSIDE RECORDS SUMMARY | 2024-11-01 10:10 | XMS_ITS ---
Author Organization [facility] Address [address] [place] [address] Care Team Providers Care Control Inspector Name Role Phone Ni Garduno MD Primary Care Provider UnavailBilly Vazquez Jr Unavailable Allergies Allergen (clinical drug ingredient) Drug/Non Drug Allergy documented on EMR Reaction Allergy Type Onset Date Status amoxicillin Amoxicillin Unknown Drug Allergy Act irasema REASON FOR VISIT Patient presents today for INCONTINENCE Medications Medication SIG (Take, Route, Frequency, Duration) Notes [...] 20 MG TAKE 1 CAPSULE BY [facility] EVERY DAY FOR 90 DAYS for 90 Active Losartan Potassium 50 MG 1 tablet Orally Once a day for 30 day(s) Active Potassium & Magnesium Aspartat 250-250 MG 1 capsule with a meal Orally Once a day for 30 day(s) Active Calcium 600 MG 1 tablet with meals Orally Twice a day Not-Taking Social History Alcohol Screen Question Answer Notes Did you [...] Never (0 point) Points 2 Interpretation Negative Problems Problem Type SNOMED Code ICD Code Onset Dates Problem Status W/U Status Risk Notes Problem 488873076 Irritable bowel syndrome with diarrhea (K58.0) Active confirmed Problem 116252590 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) Active confirmed Problem 975597592 Screening for colon cancer (Z12.11) Active confirmed Vital Signs Temperature 97.1 degrees Fahrenheit 03/25/20 24 Blood pressure systolic 000 mm Hg 03/25/20 24 Blood pressure diastolic 00 mm Hg 024 Height 61.5 in 03/25/2024 Weight 190 lb 4 oz lbs 03/25/2024 BMI 35.36 kg/m2 03/25/2024 Encounters Encounter Location Date Provider Diagnosis [facility] [address] [place] [address] 03/25/2024 Billy Cobos Jr Irritable bowel syndrome with diarrhea K58.0 ; Ramon's esophagus without dysplasia K22.70 and Screening for colon cancer Z12.11 Assessments Encounter Date Diagnosis (ICD Code) Assessment Notes Treatment Notes Treatment Clinical Notes Section Notes 03/25/2024 Irritable bowel syndrome with diarrhea (ICD-10 - K58.0) We discussed the irritable bowel syndrome today. We discussed treatment with low-dose Imodium taken at night to help prevent problems. Reflux symptoms are under good control. She will continue a proton pump inhibitor. Followup will be in 12 months. She is up-to-date on colon cancer screening. 03/25/2024 Ramon's esophagus without dysplasia (ICD-10 - K22.70) We discussed the irritable bowel syndrome today. We discussed treatment with low-dose Imodium taken at night to help prevent problems. Reflux symptoms are under good control. She will continue a proton pump inhibitor. Followup will be in 12 months. She is up-to-date on colon cancer screening. 03/25/2024 Screening for colon cancer (ICD-10 - Z12.11) We discussed the irritable bowel syndrome today. We discussed treatment with low-dose Imodium taken at night to help prevent problems. Reflux symptoms are under good control. She will continue a proton pump inhibitor. Followup will be in 12 months. She is up-to-date on colon cancer screening. Plan Of Treatment Next Appt Details Follow Up: 1 Year, Reason: Provider Name:Billy roe Jr, 03/24/2025 09:20:00 AM, [address] [facility], [address], [place], [address], Progress Notes * DILIP ROBB:[birth year] (69 yo F)Acc No.[id number]:03/25/2024 Progress Notes Patient:?MERLINELUCIUS DILIP L . Provider:?Billy Cobos MD :1955???Age:69 Y???Sex:Female D ate:03/25/2024 Address:[address] [place], [place] [id number] Pcp:Ni Garduno MD Subjective: * Chief Complaints: * ???1. Patient presents today for INCONTINENCE. * HPI: ???New symptom(s):? The patient is a pleasant 69-year-old woman seen today in followup of irritable bowel syndrome with diarrhea predominance and parents esophagus as well as colon cancer screening. Since we saw her last, she's been having some difficulty at night because of her husbands illness. He sundowns and is up at night due to Parkinson's disease and difficulty sleeping. This causes her to be under stress and makes her get up frequently with the urge to move her bowels. She has no rectal bleeding or change in her bowel habits. Colonoscopy in July 2023 showed 3 tubular adenomas in three-year followup was recommended. We reviewed this today. ?Ramon's esophagus has been stable, with negative biopsies at her last endoscopy in 2019. Five-year followup in 2024 is recommended. She continues on omeprazole which controls her reflux symptoms well. She has no dysphagia, hematemesis, or melena. Weight and appetite have been stable. * Medical History:?Colon polyp s, colonoscopy 08/19, multiple adenomas, three-year followup 08/22, Anxiety, Tubular adenoma w/focal high-grade dysplasia -removed 07/2003, Ramon's esophagus, EGD 02/19/20, biopsies negative for intestinal metaplasia, five-year followup 02/19, Hypertension, Hyperlipidemia, Osteoarthritis. * Surgical History:?Bilateral cataract surgery , hip replacement left . * Family History:?Father: dece ased.?Mother: , diagnosed with Heart disease.? Patient denies any family history of IBD, liver disease,colon cancer nor colon polyps. * Social History:?Tobacco Use:?Tobacco Use/Smoking?Are you a: nonsmoker.?Drugs/Alcohol:?Alcohol Screen?Did you have a drink containing alcohol in the past year??Yes,?How often did you have a drink containing alcohol in the past year??2 to 4 times a month (2 points),?How many drinks did you have on a typical day when you were drinking in the past year??1 or 2 drinks (0 point),?How often did you have 6 or more drinks on one occasion in the past year??Never (0 point),?Points?2,?Interpretation?Negative.?Miscellaneous:?Marital status: . 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 * Medications:?Taking Potassiu m & Magnesium Aspartat 250-250 MG Capsule 1 capsule with a meal Orally Once a day, Taking Losartan Potassium 50 MG Tablet 1 tablet Orally Once a day, Taking Latanoprost , Taking Citalopram Hydrobromide , Taking Timolol Maleate , Taking MiraLax (colon prep) 8.3 ounce ((238) grams mixed with Gatorade or Crystal Light orally begin at 5:00 p.m. the day before the procedure, Taking Omeprazole 20 Delayed Release Capsule take one capsule by mouth once a day Orally Once a day, Taking Omeprazole 20 MG Capsule Delayed Release TAKE 1 CAPSULE BY MOUTH EVERY DAY FOR 90 DAYS , Not-Taking/PRN ALPRAZolam 0.25 MG Tablet TAKE 1 TABLET BY MOUTH 3 TIMES A DAY NEEDED Oral prn, Not-Taking/PRN Calcium 600 MG Tablet 1 tablet with meals Orally Twice a day, Medication List reviewed and reconciled with the patient * Allergies:?Amoxicillin. Objective: * Vitals:?Wt: 190 lb 4 oz, Ht: 61.5 in, BMI:35.36 Index, BP: 000/00 mm Hg, Temp: 97.1. * Examination: ???General Examination: ???On examination today, she appears well. Skin is anicteric. Lungs are clear. Heart shows a regular rate and rhythm. Abdomen is soft without focal masses or tenderness. Extremities are without edema. Assessment: * Assessment: 1.?Irritable bowel syndrome with diarrhea - K58.0 (Primary)?2.?Ramon's esophagus without dysplasia - K22.70?3.?Screening for colon cancer - Z12.11? We discussed the irritable b owel syndrome today. We discussed treatment with low-dose Imodium taken at night to help prevent problems. Reflux symptoms are under good control. She will continue a proton pump inhibitor. Followup will be in 12 months. She is up-to-date on colon cancer screening. Plan: * Treatment: * Procedure Codes:?3017F COLOR ECTAL CA SCREEN DOC REV, G9903 Pt scrn tbco id as non user, G9744 PATIENT NOT ELIG D/T ACTIVE DX HTN * Preventive Medicine:? ??Counseling:?Care goal follow-up plan:?Above Normal BMI Follow-up?Giving encouragement to exercise,?BMI management provided?Yes.? ??Urinary Incontinence:?Urinary Incontinence?Assessment:?Present,?Plan of care documented:?Yes,?Type of plan of care:?Lifestyle interventions.? ??Screenings:?Fall Risk Screening?Fall Risk Assessment:?No falls in the past year.? * Follow Up:?1 Year * * Sign off status: Completed true * Provider:?Billy Cobos MD Date:?0 03/25/2024 Generated for Heather rahman/Justo/Arleth on:?11/01/2024 10:10 AM EST History and Physical Notes * HPI (History of Present Illness) Category Sub-Category Detail Notes Category Not es New symptom(s) The patient is a pleasant 69-year-old woman seen today in followup of irritable bowel syndrome with diarrhea predominance and parents esophagus as well as colon cancer screening. Since we saw her last, she's been having some difficulty at night because of her husbands illness. He sundowns and is up at night due to Parkinson's disease and difficulty sleeping. This causes her to be under stress and makes her get up frequently with the urge to move her bowels. She has no rectal bleeding or change in her bowel habits. Colonoscopy in July 2023 showed 3 tubular adenomas in three-year followup was recommended. We reviewed this today. Ramon's esophagus has been stable, with negative biopsies at her last endoscopy in 2019. Five-year followup in 2024 is recommended. She continues on omeprazole which controls her reflux symptoms well. She has no dysphagia, hematemesis, or melena. Weight and appetite have been stable. Examination Category Sub-Category Detail Notes Category Not es General Examination On exami nation today, she appears well. Skin is anicteric. Lungs are clear. Heart shows a regular rate and rhythm. Abdomen is soft without focal masses or tenderness. Extremities are without edema.
--- OUTSIDE RECORDS SUMMARY | 2024-11-01 10:10 | XMS_ITS ---
Author Organization [facility] Address [address] [place] [address] Care Team Providers Care Sales Training Manager Name Role Phone Ni Garduno MD Primary Care Provider Giles Cobos Jr, Billy Evans REASON FOR VISIT screening Problems Problem Type SNOMED Code ICD Code Onset Dates Problem Status W/U Status Risk Notes Problem History of polyp of colon (situation) (378519329) Personal history of colonic polyps (Z86.010) Active confirmed Encounters Encounter Location Date Provider Diagnosis [facility] [address] [place], [place] [phone] 08/11/2023 Billy Cobos Jr Encounter for screening colonoscopy Z12.11 ; Personal history of colonic polyps Z86.010 and Colon polyps K63.5 Assessments Encounter Date Diagnosis (ICD Code) Assessment Notes Treatment Notes Treatment Clinical Notes Section Notes 08/11/2023 Encounter for screening colonoscopy (ICD-10 - Z12.11) 08/11/2023 Personal history of colonic polyps (ICD-10 - Z86.010) 08/11/2023 Colon polyps (ICD-10 - K63.5) Plan Of Treatment Next Appt Details Provider Name:Billy roe Jr, 03/24/2025 09:20:00 AM, [address], [address], [place], [address], Progress Notes * DILIP ROBB:[birth year] (69 yo F)Acc No.[id number]:08/11/2023 COLON WITH MAC Patient:?DILIP ROBB Provider:?Billy Cobos MD :1955???Age:68 Y???Sex:Female D ate:08/11/2023 Address:[address] [place] [address] Pcp:Ni Garduno MD Subjective: * Chief Complaints: * ???1. Screening. * Medical History:? Objective: * Vitals:? Assessment: * Assessment: 1.?Encounter for screening c olonoscopy - Z12.11 (Primary)???2.?Personal history of colonic polyps - Z86.010???3.?Colon polyps - K63.5??? Plan: * Treatment: * Procedure Codes:?85369 LESIO N REMOVAL COLONOSCOPY, 13625 LESION REMOVE COLONOSCOPY, Modifiers: 59 , 47466 COLONOSCOPY AND BIOPSY, Modifiers: 59 * * The named appointment provid er may or may not be the originator of this progress note, and it is not deemed complete until electronically signed by the appointment provider. Sign off status: Pending * Provider:?Billy Cobos MD Date:?1 10/12/2022 Generated for Heather rahman/Justo/Britneysmitting on:?11/01/2024 10:10 AM EST
--- OUTSIDE RECORDS SUMMARY | 2024-11-01 10:10 | XMS_ITS ---
Author Organization [facility] Address [address] [facility] [address] [place] [address] Care Team Providers Care Heat Treat Furnace Operator Name Role Phone Ni Garduno MD Primary Care Provider Unavaillizzy Cobos Jr, Billy Evans [phone] REASON FOR VISIT pathology Encounters Encounter Location Date Provider Diagnosis [facility] [address] [facility] [address] [place] [address] 08/16/2023 Billy Cobos Jr Plan Of Treatment Next Appt Details Provider Name:Billy roe Jr, 03/24/2025 09:20:00 AM, [address] [place] [address], [address], [place], [address], Progress Notes * DILIP ROBB:[birth year] (68 yo F)Acc No.[id number]:08/16/2023 Patient:?DILIP ROBB :1955???Age:68 Y???Sex:Female Address:[address] [place] [address] [place] [address] * true * Date:? Generated for Printi ng/Faxing/eTransmitting on:?11/01/2024 10:10 AM EST
--- OUTSIDE RECORDS SUMMARY | 2024-11-01 10:11 | XMS_ITS | Patient Health Record ---
Author Organization [facility] Address [address] [facility] [address] [place] [address] Care Team Providers Care Telecommunications Sales Representative Name Role Phone Ni Garduno MD Primary Care Provider Unavaila Billy Mg Jr Unavailable [phone] Allergies Allergen (clinical drug ingredient) Drug/Non Drug Allergy documented on EMR Reaction Allergy Type Onset Date Status amoxicillin Amoxicillin Unknown Drug Allergy Act irasema Reason For Referral Referring Provider First Name Ni Referring Provider Last Name Shaan Referring Provider Speciality Internal M edicine Referred Organization [facility] Referred Provider Billy Nazario Jr Referred Address [address] [place] [address],[address],[place], [place],[address], Referred Provider Specialty Gastroentero logy General Notes Kylie Andrade 024 11:55:50 AM EDT > SPOKE WITH LENORE AT DR LLAMAS OFFIC [phone] AND REQUESTED A [employer] [facility] REFERRAL BE FAXED TO OUR OFFICE FOR APPT WITH DR NAZARIO ON 03-25-2024 Referral Priority Routine Medications Medication SIG (Take, Route, Frequency, Duration) [...] Omeprazole 20 MG TAKE 1 CAPSULE BY [facility] EVERY DAY FOR 90 DAYS for 90 Active Latanoprost Active Losartan Potassium 50 MG 1 tablet Orally Once a day for 30 day(s) Active Timolol Maleate Acti ve Citalopram Hydrobromide Active Potassium & Magnesium Aspartat 250-250 MG 1 capsule with a meal Orally Once a day for 30 day(s) Active Calcium 600 MG 1 tablet with meals Orally Twice a day Not-Taking Immunizations Vaccine Route Administration Date Status Comme nts Influenza Unknown 05/28/2019 Administered Influenza Unknown 05/28/2021 Administered Influenza Unknown 06/15/2022 Administered Influenza Unknown 06/07/2023 Administered Social History Alcohol Screen Question Answer Notes [...] Problem History of polyp of colon (situation) (871224891) Personal history of colonic polyps (Z86.010) Active confirmed Problem 579006172 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 confirmed Problem 309088377 Irritable bowel syndrome with diarrhea (K58.0) Active confirmed Problem 168120664 Gastroesophageal reflux disease without esophagitis (K21.9) Active confirmed Problem 99128128 Rectal urgency (R15.2) Active confirmed Problem 357427082 Screening for co jossy cancer (Z12.11) Active confirmed Vital Signs Temperature 97.1 degrees Fahrenheit 03/25/2024 Blood pressure diastolic 00 mm Hg 03/25/2024 Height 61.5 in 03/25/2024 Blood pressure systolic 000 mm Hg 03/25/2024 Weight 190 lb 4 oz lbs 03/25/2024 BMI 35.36 kg/m2 03/25/2024 Encounters Encounter Location Date Provider Diagnosis [facility] [address] [place] [address] 03/25/2024 Billy Nazario Jr Irritable bowel syndrome with diarrhea K58.0 ; Ramon's esophagus without dysplasia K22.70 and Screening for colon cancer Z12.11 Assessments Encounter Date Diagnosis (ICD Code) Assessment Notes Treatment Notes Treatment Clinical Notes Section Notes 03/25/2024 Rmaon's esophagus without dysplasia (ICD-10 - K22.70) We discussed the irritable bowel syndrome today. We discussed treatment with low-dose Imodium taken at night to help prevent problems. Reflux symptoms are under good control. She will continue a proton pump inhibitor. Followup will be in 12 months. She is up-to-date on colon cancer screening. 03/25/2024 Irritable bowel syndrome with diarrhea (ICD-10 [...] on colon cancer screening. Plan Of Treatment Future Test Test Name Order Date UPPER GI ENDOSCOPY 03/28/2014 COLONOSCOPY 05/04/2018 UPPER GI ENDOSCOPY 01/29/2020 COLONOSCOPY 06/21/2023 Next Appt Details Provider Name:Billy roe Jr, 03/24/2025 09:20:00 AM, [address] [place] [address], [address], [place], [address], Insurance Providers Payer Name Payer Address Payer Phone Subscriber Number Group Number Insured Name Patient Relationship to Insured Coverage Start Date Coverage End Date [employer] [address] [place] [phone] [id number] DILIP ROBB Self - patient is the insured Medical (General) History Medical History History ICD Code Colon polyps, colonoscopy , multiple adenomas, three-year followup 08/22 Anxiety Tubular adenoma w/focal high-grade dyspl alesha -removed 07/2003 Ramon's esophagus, EGD 01/27 12/15, biopsies negative for intestinal metaplasia, five-year followup 02/19 Hypertension Hyperlipidemia Osteoarthritis Surgical History Surgery Date(Month/Year) Bilateral cataract surgery hip replacement left
== END 2024-11-01 10:34 | disposition home or self-care (01) ==
PROVIDERS: PCP Internal Medicine; Visit Provider Internal Medicine
DX: J45.909 Unspecified asthma, uncomplicated (principal); I10 Essential (primary) hypertension; E78.00 Pure hypercholesterolemia, unspecified; F41.9 Anxiety disorder, unspecified

== ENCOUNTER → 2024-11-01 09:24 | Outpatient (BNVA) | payer OTHER, SELFPAY | PROVIDERS: PCP Internal Medicine; Visit Provider Internal Medicine | DX: I10 Essential (primary) hypertension (principal); J45.909 Unspecified asthma, uncomplicated; E78.00 Pure hypercholesterolemia, unspecified; F41.9 Anxiety disorder, unspecified; Z79.899 Other long term (current) drug therapy | CPT/HCPCS: 96127 ==

== ENCOUNTER 2025-01-07 08:01 | Outpatient (AMB) | payer OTHER, SELFPAY ==
--- OUTSIDE RECORDS SUMMARY | 2025-01-07 08:03 | XMS_ITS ---
Author Organization [facility] Address [address] [facility] [address] [place] [address] Care Team Providers Care Bulb Packer Name Role Phone Ni Garduno MD Primary Care Provider Giles Cobos Jr, Billy Evans [phone] REASON FOR VISIT screening Problems Problem Type SNOMED Code ICD Code Onset Dates Problem Status W/U Status Risk Notes Problem Personal history of colonic polyps (Z86.010) Active confirmed Encounters Encounter Location Date Provider Diagnosis [facility] Outpatient [address] [place], [place] [phone] 08/11/2023 Billy Cobos Jr Encounter for screening [...] Name:Billy roe Jr, 03/24/2025 09:20:00 AM, [address] [place] [address], [address], [place], [address], Progress Notes * DILIP ROBB:[birth year] (69 yo F)Acc No.[id number]:08/11/2023 COLON WITH MAC Patient:?DILIP ROBB Provider:?Billy Cobos MD :1955???Age:68 Y???Sex:Female D ate:08/11/2023 Address:[address] [place] [address] [place] [id number] Pcp:Ni Garduno MD Subjective: * Chief Complaints: * ???1. Screening. * Medical History:? Objective: * Vitals:? Assessment: * Assessment: 1.?Encounter for screening c olonoscopy - Z12.11 (Primary)???2.?Personal history of colonic polyps - Z86.010???3.?Colon polyps - K63.5??? Plan: * Treatment: * Procedure Codes:?82175 LESIO N REMOVAL COLONOSCOPY, 93441 LESION REMOVE COLONOSCOPY, Modifiers: 59 , 16158 COLONOSCOPY AND BIOPSY, Modifiers: 59 * * The named appointment provid er may or may not be the originator of this progress note, and it is not deemed complete until electronically signed by the appointment provider. Sign off status: Pending * Provider:?Billy Cobos MD Date:?1 10/12/2022 Generated for Heather rahman/Justo/eTcarmellasmitting on:?01/07/2025 08:03 AM EDT
--- OUTSIDE RECORDS SUMMARY | 2025-01-07 08:03 | XMS_ITS ---
Author Organization [facility] Address [address] [facility] [address] [place] [address] Care Team Providers Care Mine Safety Manager Name Role Phone Ni Garduno MD Primary Care Provider Unavaillizzy Cobos Jr, Billy Evans [phone] REASON FOR VISIT pathology Encounters Encounter Location Date Provider Diagnosis [facility] [address] [facility] [address] [place] [address] 08/16/2023 Billy Cobos Jr Plan Of Treatment Next Appt Details Provider Name:Billy roe Jr, 03/24/2025 09:20:00 AM, [address] [place] [address], [address], [place], [address], Progress Notes * DILIP ROBB:[birth year] (68 yo F)Acc No.[id number]:08/16/2023 Patient:?DILIP ROBB :1955???Age:68 Y???Sex:Female Address:[address] [place] [address] [place] [address] * true * Date:? Generated for Printi ng/Faxing/eTransmitting on:?01/07/2025 08:03 AM EDT
--- OUTSIDE RECORDS SUMMARY | 2025-01-07 08:04 | XMS_ITS | Patient Health Record ---
Author Organization [facility] Address [address] [facility] [address] [place] [address] Care Team Providers Care Accuracy Expert Name Role Phone Ni Garduno MD Primary Care Provider Unavaila Billy Mg Jr Unavailable [phone] Allergies Allergen (clinical drug ingredient) Drug/Non Drug Allergy documented on EMR Reaction Allergy Type Onset Date Status amoxicillin Amoxicillin Unknown Drug Allergy Act irasema Reason For Referral Referring Provider First Name Ni Referring Provider Last Name Shaan Referring Provider Speciality Internal M edicine Referred Organization [facility] Referred Provider Billy Nazario Jr Referred Address [address] [place] [address],[address],[place],[address], Referred Provider Specialty Gastroentero logy General Notes Kylie Andrade 024 11:55:50 AM EDT > SPOKE WITH LENORE AT DR [place] OFFIC [phone] AND REQUESTED A [employer] [facility] REFERRAL BE FAXED TO OUR OFFICE [...] MG TAKE 1 CAPSULE BY [facility] EVERY DAY FOR 90 DAYS for 90 [...] Problem History of polyp of colon (situation) (082706895) Personal history of colonic polyps (Z86.010) Active confirmed Problem 553095172 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 confirmed Problem 120253365 Irritable bowel syndrome with diarrhea (K58.0) Active confirmed Problem 953971168 Gastroesophageal reflux disease without esophagitis (K21.9) Active confirmed Problem 13290160 Rectal urgency (R15.2) Active confirmed Problem 623774795 Screening for co jossy cancer (Z12.11) Active confirmed Vital Signs Temperature 97.1 degrees Fahrenheit 03/25/2024 Blood pressure diastolic 00 mm Hg 03/25/2024 Height 61.5 in 03/25/2024 Blood pressure systolic 000 mm Hg 03/25/2024 Weight 190 lb 4 oz lbs 03/25/2024 BMI 35.36 kg/m2 03/25/2024 Encounters Encounter Location Date Provider Diagnosis [facility] [address] [place] [address] 03/25/2024 Billy Nazario Jr Irritable bowel syndrome with diarrhea K58.0 ; Ramon's esophagus without dysplasia K22.70 and Screening for colon cancer Z12.11 Assessments Encounter Date Diagnosis (ICD Code) Assessment Notes Treatment Notes Treatment Clinical Notes Section Notes 03/25/2024 Ramon's esophagus without dysplasia (ICD-10 [...] Provider Name:Billy roe Jr, 03/24/2025 09:20:00 AM, [address] [place] [address], [address], [place], [address], Insurance Providers Payer Name Payer Address Payer Phone Subscriber Number Group Number Insured Name Patient Relationship to Insured Coverage Start Date Coverage End Date [employer] [address] [place] [id number] DILIP ROBB Self - patient is the [...]
--- OUTSIDE RECORDS SUMMARY | 2025-01-07 08:04 | XMS_ITS ---
Author Organization [facility] Address [address] [place] [address] Care Team Providers Care Manager Business Development Hospice Name Role Phone Ni Garduno MD Primary Care Provider UnavailBilly Vazquez Jr Unavailable [phone] Allergies Allergen (clinical drug ingredient) Drug/Non Drug [...] 20 MG TAKE 1 CAPSULE BY [facility] EVERY DAY FOR 90 DAYS [...] Problem Status W/U Status Risk Notes Problem 447179590 Irritable bowel syndrome with diarrhea (K58.0) Active confirmed Problem 245192873 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) Active confirmed Problem 862104984 Screening for colon cancer (Z12.11) Active confirmed Vital Signs Temperature 97.1 degrees Fahrenheit 03/25/20 24 Blood pressure systolic 000 mm Hg 03/25/20 24 Blood pressure diastolic 00 mm Hg 024 Height 61.5 in 03/25/2024 Weight 190 lb 4 oz lbs 03/25/2024 BMI 35.36 kg/m2 03/25/2024 Encounters Encounter Location Date Provider Diagnosis [facility] [address] [facility] [address] [place] [id number] 03/25/2024 Billy Cobos Jr Irritable bowel syndrome [...] Name:Billy roe Jr, 03/24/2025 09:20:00 AM, [address] [facility], [address], [place], [address], Progress Notes * DILIP ROBB:[birth year] (69 yo F)Acc No.[id number]:03/25/2024 Progress Notes Patient:?MERLINELUCIUS DILIP L . Provider:?Billy Cobos MD :1955???Age:69 Y???Sex:Female D ate:03/25/2024 Address:[address] [place], [place] [id number] Pcp:Ni Garduno MD Subjective: * Chief Complaints: [...] (0 point),?Points?2,?Interpretation?Negative.?Miscellaneous:?Marital status: . 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 * Medications:?Taking Potassiu m & Magnesium Aspartat [...] MD Date:?0 03/25/2024 Generated for Heather rahman/Justo/Arleth on:?01/07/2025 08:03 AM EDT History and Physical Notes * HPI (History [...]
--- NOTE | 2025-01-07 08:26 | MHC.OFFWIV ---
Intake Vital Signs 01/07/25 08:27 Height 5 ft 1.5 in Weight 180 lb BMI 33.5 BP 110/80 Blood Pressure Location Lt brachial Position Sitting Pulse 102 H Pulse Source Pulse Oximeter Temp 98.4 F Temp Source Oral Pulse Oximetry (%) 96 Oxygen Delivery Method Room Air Intake Visit Reasons: EP Lt leg swelling, redness, hot to the touch Patient Tobacco Use Status: Never used Tobacco Allergies amoxicillin [AMOXICILLIN] Allergy (Intermediate, Verified 01/07/25 08:27) HIVES latex Allergy (Intermediate, Verified 01/07/25 08:27) Redness of Skin, irritation Medication List - Last Reconciled 01/07/25 by Miguel Trimble MD alprazolam 0.25 mg (1/2 x 0.5 mg) PO BEDTIME PRN atorvastatin 20 mg PO DAILY budesonide-formoterol 80-4.5 mcg/actuation (Symbicort) 2 puffs PO BID citalopram 40 mg PO DAILY docusate sodium 100 mg PO BID furosemide 20 mg PO DAILY latanoprost 0.005% 1 drp ophthalmic (eye) BEDTIME lidocaine 5% 2 patches topical DAILY losartan 100 mg PO DAILY magnesium oxide 400 mg PO BID omeprazole 20 mg PO DAILY potassium chloride ER 30 mEq (3 x 10 mEq) PO DAILY timolol maleate 0.5% 1 drp ophthalmic (eye) DAILY@0630 Do you need a note to return to daycare/school/sports/work: No HPI EP Lt leg swelling, redness, hot to the touch HPI Details History - The patient is a 69-year-old female presenting with swelling of the lower extremities. chronic - The swelling did not occur suddenly but has been chronic in nature. - The patient avoids taking her prescribed diuretic medication on days she drives to [place] about twice a week for work, which exacerbates the swelling., patient says she cant hold her urine we had discussion about diurectic use, she may consider wearing diapers during her ride to [place], but its imp to take the diuretic as prescribed and if she dont want to do that then take them bid the days she is here , that will be three days a week she has no calf tenderness to palpation there are no sign of cellulitis Roc sign is neg Problem List - Chronic lower extremity edema - Vascular insufficiency Patient Instructions - Continue taking your prescribed furosemide, even on travel days, or consider extra doses on non-travel days. - Elevate legs whenever seated to reduce swelling. - Monitor for any new or worsening pain and report promptly, especially to rule out any concerns for blood clots. 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 Maternal Grandmother COPD (chronic obstructive pulmonary disease) Myocardial infarction Maternal Grandfather No problems noted. Paternal Grandfather No problems noted. Paternal Grandmother No problems noted. 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 Cognitive needs: No Hearing needs: No Vision needs: Yes Physical Exam Vital Signs: Last Vital Signs Temp 98.4 F 01/07/25 08:27 Pulse 102 H 01/07/25 08:27 BP 110/80 01/07/25 08:27 Pulse Ox 96 01/07/25 08:27 Oxygen Delivery Method Room Air 01/07/25 08:27 BMI result Body Mass Index 33.5 Assessment & Plan Assessment & Plan (1) Bilateral edema of lower extremity: Code(s): R60.0 - Localized edema (2) Urine incontinence: Code(s): R32 - Unspecified urinary incontinence Qualifiers: Urinary Incontinence type: urge incontinence Qualified Code(s): N39.41 - Urge incontinence Plan History - The patient is a 69-year-old female presenting with swelling of the lower extremities. chronic - The swelling did not occur suddenly but has been chronic in nature. - The patient avoids taking her prescribed diuretic medication on days she drives to [place] about twice a week for work, which exacerbates the swelling., patient says she cant hold her urine we had discussion about diurectic use, she may consider wearing diapers during her ride to [place], but its imp to take the diuretic as prescribed and if she dont want to do that then take them bid the days she is here , that will be three days a week she has no calf tenderness to palpation there are no sign of cellulitis Roc sign is neg Problem List - Chronic lower extremity edema - Vascular insufficiency Patient Instructions - Continue taking your prescribed furosemide, even on travel days, or consider extra doses on non-travel days. - Elevate legs whenever seated to reduce swelling. - Monitor for any new or worsening pain and report promptly, especially to rule out any concerns for blood clots. Coding Level of Care Code Est Pt Level 3 (35934) Diagnoses Bilateral edema of lower extremity R60.0 Urge incontinence of urine N39.41 Urinary Incontinence type: urge incontinence
[2025-01-07 08:27] VITALS: BP 110/80; PULSE 102; TEMP 36.9; O2SAT 96; BMI 33.5
== END 2025-01-07 09:53 | disposition home or self-care (01) ==
PROVIDERS: PCP Internal Medicine; Visit Provider Internal Medicine
DX: R60.0 Localized edema (principal); N39.41 Urge incontinence

== ENCOUNTER → 2025-01-07 08:01 | Outpatient (BNVA) | payer OTHER, SELFPAY | PROVIDERS: PCP Internal Medicine; Visit Provider Internal Medicine ==

== ENCOUNTER 2025-01-13 10:14 | Outpatient (AMB) | payer OTHER, SELFPAY ==
[2025-01-13 10:25] VITALS: BP 118/80; PULSE 105; RESP 20; TEMP 36.7; O2SAT 96; BMI 33.3
--- NOTE | 2025-01-13 10:25 | MHC.PC.OV ---
Vital Signs 01/13/25 10:25 Height 5 ft 1.5 in Weight 179 lb BMI 33.3 BP 118/80 Blood Pressure Location Lt brachial Position Sitting Respiration 20 Pulse 105 H Pulse Source Pulse Oximeter Temp 98.1 F Temp Source Oral Pulse Oximetry (%) 96 Oxygen Delivery Method Room Air Intake Visit Reasons: Followup leg edema Intake Note: Pt is here today for a follow up visit on leg edema. Pt was seen in our walk in clinic. Allergies amoxicillin [AMOXICILLIN] Allergy (Intermediate, Verified 01/13/25 10:28) HIVES latex Allergy (Intermediate, Verified 01/13/25 10:28) Redness of Skin, irritation Medication List - Last Reconciled 01/13/25 by Ni Garduno MD alprazolam 0.25 mg (1/2 x 0.5 mg) PO BEDTIME PRN atorvastatin 20 mg PO DAILY budesonide-formoterol 80-4.5 mcg/actuation (Symbicort) 2 puffs PO BID citalopram 40 mg PO DAILY docusate sodium 100 mg PO BID furosemide 20 mg PO DAILY latanoprost 0.005% 1 drp ophthalmic (eye) BEDTIME lidocaine 5% 2 patches topical DAILY losartan 100 mg PO DAILY magnesium oxide 400 mg PO BID omeprazole 20 mg PO DAILY potassium chloride ER 30 mEq (3 x 10 mEq) PO DAILY timolol maleate 0.5% 1 drp ophthalmic (eye) DAILY@0630 Tobacco use date assessed: 01/13/25 Fall risk assessment: No Falls in past year Last assessed Fall Risk: 01/13/25 Dental Screening Dental Screen Date: 11/01/24 HPI Followup leg edema HPI Details Patient complains of lower back pain for the last 3 weeks after she pushed her 's wheelchair. Patient denies pain radiating to lower extremities. She noticed increasing lower extremity edema for the last few weeks since she has been sitting more often due to lower back pain. Patient has a baseline dyspnea on exertion intermittent cough and wheezing but has not been using Symbicort regularly. Patient denies chest pain PND orthopnea fever chills. Patient was seen in urgent Care was advised to increase furosemide to 2 tablets a day but noticed significantly increased urination and has not been continuing. She has been taking only 1 tabl of KCl replacement instead of 3 tablets as prescribed. [facility] Medical History (Updated 01/13/25 @ 11:08 by Ni Garduno MD) Cerumen impaction Hypermagnesemia Rib pain on left side HLD (hyperlipidemia) Glaucoma Elevated LFTs Osteoarthritis of hips, bilateral Nevus Annual physical exam Postmenopausal Knee pain, chronic Ramon's esophagus Plantar fasciitis of left foot Hypercholesterolemia Anxiety HTN (hypertension) Surgical History History of total left hip arthroplasty Hx of eye surgery H/O colonoscopy History of esophagogastroduodenoscopy (EGD) Family History Father Bladder cancer Mother No problems noted. Maternal Grandmother COPD (chronic obstructive pulmonary disease) Myocardial infarction Maternal Grandfather No problems noted. Paternal Grandfather No problems noted. Paternal Grandmother No problems noted. 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 1. Little interest or pleasure in doing things: several days 2. Feeling down, depressed, or hopeless: not at all 3. Trouble falling or staying asleep, or sleeping too much: several days 4. Feeling tired or having little energy: several days 5. Poor appetite or overeating: several days 6. Feeling bad about yourself - or that you are a failure or have let yourself or your family down: not at all 7. Trouble concentrating on things, such as reading the newspaper or watching television: not at all 8. Moving or speaking so slowly that other people could have noticed. Or the opposite - being so fidgety or restless that you have been moving around a lot more than usual: not at all 9. Thoughts that you would be better off or of hurting yourself in some way: not at all Total score: 4 Depression Screening Interpretation: Negative Depression Screening Done: Yes 75184 - PHQ-9 Billing: Yes Source: Developed by Drs. Mason Borges, Juan Santos and colleagues, with an educational meli from [employer]. Thrive Questionnaire Date Thrive assessed: 10/29/24 I am a: Patient What is your living situation today?: I have a steady place to live Within the past 12 months, did the food you bought not last and you didn't have the money to get more?: Never true Within the past 12 months, did you worry whether your food would run out before you got money to buy more?: Never true Do you have trouble paying for medicines?: No Do you have trouble getting transportation to medical appointments?: No Do you have trouble paying your heating and electricity bill?: No Do you have trouble taking care of your child, family member or friend?: No Do you have trouble with day-to-day activities such as bathing, preparing meals, shopping, managing finances, etc.?: No Are you currently unemployed and looking for a job?: No Are you interested in more education?: No Please select the resources that you would like help with: None Currently or been in a relationship where the following occur: No concerns reported THRIVE Score: 0 LU-7 AMB Questionnaire LU-7 Date LU - 7 assessed: 11/01/24 Trouble relaxin = More than half the days Source: Developed by Drs. Mason Borges, Kathrin Jimenes, Juan Ibarra and colleagues, with an educational meli from [employer]. Review of Systems Const All systems reviewed & are unremarkable except as noted in HPI and below ENT Reports no additional complaints Card Reports no additional complaints Resp Reports no additional complaints GI Reports no additional complaints Reports no additional complaints Physical exam (Primary Care) Vital Signs: Last Vital Signs Temp 98.1 F 01/13/25 10:25 Pulse 105 H 01/13/25 10:25 Resp 20 01/13/25 10:25 BP 118/80 01/13/25 10:25 Pulse Ox 96 01/13/25 10:25 Oxygen Delivery Method Room Air 01/13/25 10:25 BMI result Body Mass Index 33.3 Tobacco/Smoking Status: Tobacco use Status Tobacco use date assessed 01/13/25 01/13/25 10:31 Patient Tobacco Use Status Never used Tobacco 01/13/25 10:31 e-Cigarette/Vaping Use Never Used 01/13/25 10:31 PHQ-9: PHQ-9 Score PHQ-9: Total score 4 01/13/25 10:31 Depression Screening Interpretation: Negative Thrive Assessment: Date of Thrive Assessment Date Thrive assessed 10/29/24 01/13/25 10:31 Currently or been in a relationship where the following occur: No concerns reported Const General: no acute distress HENMT Head: Yes normal to inspection Throat: Yes posterior oropharynx normal Eyes General: appearance normal, both eyes and all related structures Resp Effort & Inspection: normal respiratory effort Auscultation: crackles and diminished lung sounds Cardio Rhythm: regular rhythm Heart sounds: S1 normal heart sound present and S2 normal heart sound present GI Inspection: Yes normal to inspection Palpation (GI): Soft to palpation Extrem Other: 3+ pitting edema bilaterally Coding Level of Care Code Est Pt Level 4 (12529) Complex EM visit Add On G2211 Diagnoses Bilateral edema of lower extremity R60.0 Lumbar degenerative disc disease M51.369 SAINZ (dyspnea on exertion) R06.09 HTN (hypertension) I10 Heart failure with preserved ejection fraction I50.30 Additional Codes PHQ-9 - 08529 - PHQ-9 Billing: Yes ([id number]) Assessment & Plan Assessment & Plan (1) Bilateral edema of lower extremity: Code(s): R60.0 - Localized edema Category: Medical Plan: Check comprehensive panel CBC BNP. Spironolactone 50 mg will be added to 20 mg of furosemide. Basic metabolic panel will be checked in 1 week. She was advised to elevate lower extremities and wear compression knee-highs. Echocardiogram will be obtained patient follow-up in 2 weeks (2) Lumbar degenerative disc disease: Code(s): M51.369 - Other intervertebral disc degeneration, lumbar region without mention of lumbar back pain or lower extremity pain Category: Medical Plan: Check x-ray of lumbar spine and referred to physical therapy (3) SAINZ (dyspnea on exertion): Code(s): R06.09 - Other forms of dyspnea Category: Medical Plan: Patient was advised to restart Symbicort and echocardiogram will be obtained to evaluate for ejection fraction (4) HTN (hypertension): Code(s): I10 - Essential (primary) hypertension Category: Medical Plan: Continue losartan (5) Heart failure with preserved ejection fraction: Code(s): I50.30 - Unspecified diastolic (congestive) heart failure Category: Medical Plan: Continue current medication and add spironolactone obtain echocardiogram Orders: Orders XR lumbar spine 2-3V Today M51.369 - Other intervertebral disc degeneration, lumbar region without mention of lumbar back pain or lower extremity pain PT Evaluation and Treatment Today M51.369 - Other intervertebral disc degeneration, lumbar region without mention of lumbar back pain or lower extremity pain Comprehensive Met. Panel Today E83.42 - Hypomagnesemia, I10 - Essential (primary) hypertension, R06.09 - Other forms of dyspnea, R60.0 - Localized edema Complete Blood Count Auto Diff Today E83.42 - Hypomagnesemia, I10 - Essential (primary) hypertension, R06.09 - Other forms of dyspnea, R60.0 - Localized edema B Type Natriuretic Peptide Today E83.42 - Hypomagnesemia, I10 - Essential (primary) hypertension, R06.09 - Other forms of dyspnea, R60.0 - Localized edema CA echo transthoracic complete Today I50.30 - Unspecified diastolic (congestive) heart failure Basic Metabolic Panel 1 Week I50.30 - Unspecified diastolic (congestive) heart failure TSH reflex Free T4 Today R60.0 - Localized edema Medications: New spironolactone 50 mg PO DAILY 30 tabs 0RF
--- OUTSIDE RECORDS SUMMARY | 2025-01-13 10:50 | XMS_ITS ---
Author Organization [facility] Address [address] [place] [address] [address] [place] [address] Care Team Providers Care Med Specialist Name Role Phone Ni Garduno MD Primary Care Provider Giles Cobos Jr, Billy Evans REASON FOR VISIT screening Problems Problem Type SNOMED Code ICD Code Onset Dates Problem Status W/U Status Risk Notes Problem Personal history of colonic polyps (Z86.010) Active confirmed Encounters Encounter Location Date Provider Diagnosis [facility] Outpatient [address] [place], [place] [phone] 08/11/2023 Billy Cobos Jr Encounter for screening [...] Provider Name:Billy roe Jr, 03/24/2025 09:20:00 AM, [address] [place] [address], [address], [place], [address], Progress Notes * DILIP ROBB:[birth year] (69 yo F)Acc No.[id number]:08/11/2023 COLON WITH MAC Patient:?DILIP ROBB Provider:?Billy Cobos MD :1955???Age:68 Y???Sex:Female D ate:08/11/2023 Address:[address] [place] [address] [id number] Pcp:Ni Garduno MD Subjective: * Chief Complaints: * ???1. Screening. * Medical History:? Objective: * Vitals:? Assessment: * Assessment: 1.?Encounter for screening c olonoscopy - Z12.11 (Primary)???2.?Personal history of colonic polyps - Z86.010???3.?Colon polyps - K63.5??? Plan: * Treatment: * Procedure Codes:?68651 LESIO N REMOVAL COLONOSCOPY, 15540 LESION REMOVE COLONOSCOPY, Modifiers: 59 , 52197 COLONOSCOPY AND BIOPSY, Modifiers: 59 * * The named appointment provid er may or may not be the originator of this progress note, and it is not deemed complete until electronically signed by the appointment provider. Sign off status: Pending * Provider:?Billy Cobos MD Date:?1 10/12/2022 Generated for Heather rahman/Justo/eTransmitting on:?01/13/2025 10:50 AM EDT
--- OUTSIDE RECORDS SUMMARY | 2025-01-13 10:50 | XMS_ITS | Patient Health Record ---
Author Organization [facility] Address [address] [place] [address] Care Team Providers Care Fruit Stuffer Name Role Phone Ni Garduno MD Primary Care Provider Unavaila Billy Mg Jr Unavailable [phone] Allergies Allergen (clinical drug ingredient) Drug/Non Drug Allergy documented on EMR Reaction Allergy Type Onset Date Status amoxicillin Amoxicillin Unknown Drug Allergy Act irasema Reason For Referral Referring Provider First Name Ni Referring Provider Last Name Shaan Referring Provider Speciality Internal M edicine Referred Organization [facility] Referred Provider Billy Nazario Jr Referred Address [address] [place] [address],[address],[place], [place],[address], Referred Provider Specialty Gastroentero logy General Notes Kylie Andrade 024 11:55:50 AM EDT > SPOKE WITH LENORE AT DR LLAMAS OFFIC [phone] AND REQUESTED A [employer] REFERRAL BE FAXED TO OUR OFFICE [...] Problem History of polyp of colon (situation) (948483544) Personal history of colonic polyps (Z86.010) Active confirmed Problem 169527498 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 confirmed Problem 157943318 Irritable bowel syndrome with diarrhea (K58.0) Active confirmed Problem 426970666 Gastroesophageal reflux disease without esophagitis (K21.9) Active confirmed Problem 04246277 Rectal urgency (R15.2) Active confirmed Problem 723645911 Screening for co jossy cancer (Z12.11) Active confirmed Vital Signs Temperature 97.1 degrees Fahrenheit 03/25/2024 Blood pressure diastolic 00 mm Hg 03/25/2024 Height 61.5 in 03/25/2024 Blood pressure systolic 000 mm Hg 03/25/2024 Weight 190 lb 4 oz lbs 03/25/2024 BMI 35.36 kg/m2 03/25/2024 Encounters Encounter Location Date [facility] [address] [place] [address] 03/25/2024 Billy Nazario Jr Irritable bowel syndrome [...] Provider Name:Billy roe Jr, 03/24/2025 09:20:00 AM, [address] [place] [address], [address], [place], [address], Insurance Providers Payer Name Payer Address Payer Phone Subscriber Number Group Number Insured Name Patient Relationship to Insured Coverage Start Date Coverage End Date [employer] [address] [place] [phone] [id number] DILIP ROBB Self - patient is the [...]
--- OUTSIDE RECORDS SUMMARY | 2025-01-13 10:50 | XMS_ITS ---
Author Organization [facility] Address [address] [place] [address] Care Team Providers Care Academic Affairs Coordinator Name Role Phone Ni Garduno MD Primary [...] Problem Status W/U Status Risk Notes Problem 618353837 Irritable bowel syndrome with diarrhea (K58.0) Active confirmed Problem 291282959 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) Active confirmed Problem 735368275 Screening for colon cancer (Z12.11) Active confirmed Vital Signs Temperature 97.1 degrees Fahrenheit 03/25/20 24 Blood pressure systolic 000 mm Hg 03/25/20 24 Blood pressure diastolic 00 mm Hg 024 Height 61.5 in 03/25/2024 Weight 190 lb 4 oz lbs 03/25/2024 BMI 35.36 kg/m2 03/25/2024 Encounters Encounter Location Date Provider Diagnosis [facility] [address] [facility] [address] [place] [phone] 03/25/2024 Billy Cobos Jr Irritable bowel syndrome [...] Name:Billy roe Jr, 03/24/2025 09:20:00 AM, [address] [facility], [address], [place], [address], Progress Notes * DILIP ROBB:[birth year] (69 yo F)Acc No.[id number]:03/25/2024 Progress Notes Patient:?MERLINELUCIUS DILIP L . Provider:?Billy Cobos MD :1955???Age:69 Y???Sex:Female D ate:03/25/2024 Address:[address] [place], [place] [id number] Pcp:Ni Garduno MD Subjective: * Chief Complaints: [...] (0 point),?Points?2,?Interpretation?Negative.?Miscellaneous:?Marital status: . 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 * Medications:?Taking Potassiu m & Magnesium Aspartat [...] MD Date:?0 03/25/2024 Generated for Heather rahman/Justo/Arleth on:?01/13/2025 10:50 AM EDT History and Physical Notes * [...]
--- OUTSIDE RECORDS SUMMARY | 2025-01-13 10:50 | XMS_ITS ---
Author Organization [facility] Address [address] [facility] [address] [place] [address] Care Team Providers Care Blower And Compressor Assembler Name Role Phone Ni Garduno MD Primary Care Provider Unavaillizzy Cobos Jr, Billy Evans REASON FOR VISIT pathology Encounters Encounter Location Date Provider Diagnosis [facility] [address] [facility] [address] [place] [phone] 08/16/2023 Billy Cobos Jr Plan Of Treatment Next Appt Details Provider Name:Billy roe Jr, 03/24/2025 09:20:00 AM, [address] [place] [address], [address], [place], [address], Progress Notes * DILIP ROBB:[birth year] (68 yo F)Acc No.[id number]:08/16/2023 Patient:?DILIP ROBB :1955???Age:68 Y???Sex:Female Address:[address] [place] [address] [place] [address] * true * Date:? Generated for Printi ng/Faxing/eTransmitting on:?01/13/2025 10:50 AM EDT
== END 2025-01-13 11:21 | disposition home or self-care (01) ==
LOC: HO.HMCC 10:15
PROVIDERS: PCP Internal Medicine; Visit Provider Internal Medicine
DX: R60.0 Localized edema (principal); M51.369 Other intervertebral disc degeneration, lumbar region without mention of lumbar back pain or lower extremity pain; R06.09 Other forms of dyspnea; I50.30 Unspecified diastolic (congestive) heart failure; I10 Essential (primary) hypertension

== ENCOUNTER 2025-01-13 10:14 | Outpatient (REF) | payer OTHER, SELFPAY ==
--- NOTE | ~2025-01-13 | XR_ITS ---
EXAMINATION: XR LUMBAR SPINE 2-3 VIEWS HISTORY: M51.369 - Other intervertebral disc degeneration, lumbar region without ... COMPARISON: Comparison is made with the prior examination dated 07/21/2017. FINDINGS: AP, lateral, and coned down views of the lumbar spine are submitted. Osseous mineralization is normal. Five nonrib-bearing lumbar vertebral bodies are identified, maintaining normal height and alignment without evidence of fracture or spondylolisthesis. There is mild anterior spurring at multiple levels. The intervertebral disc spaces are maintained. There is osteoarthritis of the L5-S1 facet joints. The visualized paraspinal soft tissues are unremarkable. The patient is status post left total hip arthroplasty. There is moderate to severe osteoarthritis of the right hip. XR/XR lumbar spine 2-3V IMPRESSION: Mild degenerative disc disease. Electronically signed by: Mason Gould MD 01/13/2025 12:35 PM EDT
--- NOTE | ~2025-01-13 | XR_ITS ---
EXAMINATION: XR CHEST 2 VIEWS HISTORY: R60.0 - Localized edema COMPARISON: Comparison is made with the prior examination dated 09/08/2021. FINDINGS: PA and lateral views of the chest are submitted. There is linear scarring in the lingula. The lungs are otherwise clear. There is no pleural effusion, pneumothorax, or pulmonary vascular congestion. The heart is normal in size. The aorta is calcified. There is a small hiatal hernia. There is degenerative disc disease of the spine. XR/XR chest 2V IMPRESSION: Small hiatal hernia. No acute cardiopulmonary abnormality. Electronically signed by: Mason Gould MD 01/13/2025 12:50 PM EDT
[2025-01-13 13:01] LABS: MANUAL DIFF FLAG NO
[2025-01-13 13:23] LABS: Basophils Percent Auto 0.6 % (0-2); Eosinophils Absolute Auto 0.1 X10*3/uL (0.0-0.4); Eosinophils Percent Auto 1.7 % (0-4); Hematocrit 39.5 % (37.0-47.0); Hemoglobin 13.3 g/dl (12.0-16.0); Imm Gran Abs Auto 0.01 X10*3/uL (0.00-0.03); Imm Gran Pct Auto 0.2 % (0.0-0.4); Lymphocytes Absolute Auto 1.7 X10*3/uL (1.2-4.9); Mean Corpuscular HGB Conc 33.7 g/dl (31.0-35.0); Mean Corpuscular Hemoglobin 32.3 pg (27.0-33.0); Mean Corpuscular Volume 95.9 fL (80.0-98.0); Mean Platelet Volume 9.8 fL (9.4-12.3); Monocytes Absolute Auto 0.5 X10*3/uL (0.1-1.2); Neutrophils Absolute Auto 2.5 x10*3/uL (2.0-8.3); Neutrophils Percent Auto 52.5 % (45-73); Platelet Count 152 X10*3/uL (160-400); Red Blood Count 4.12 X10*6/uL (4.20-5.50); Red Cell Distribution Width 13.9 % (11.0-16.0); White Blood Count 4.8 X10*3/uL (4.8-10.8)
[2025-01-13 13:45] LABS: B Type Natriuretic Peptide 93 pg/mL (<100)
[2025-01-13 13:58] LABS: TSH reflex Free T4 7.12 uIU/mL (0.32-4.0)
[2025-01-13 13:59] LABS: Alanine Aminotransferase 46 U/L (0-31); Albumin Level 3.1 g/dL (3.5-5.0); Alkaline Phosphatase 129 U/L (39-117); Anion Gap 16 (12-20); Aspartate Amino Transferase 118 U/L (5-31); Bilirubin Total 1.5 mg/dL (0.0-1.0); Blood Urea Nitrogen 7 mg/dL (9-16); Calcium 7.4 mg/dL (8.4-10.2); Carbon Dioxide 28 mmol/L (22-29); Chloride 96 mmol/L (96-108); Estimated Glomerular Filt Rate > 60; Glucose Random 94 mg/dL (60-115); Potassium 2.9 mmol/L (3.3-5.1); Sodium 137 mmol/L (135-145); Total Protein 5.4 g/dL (6.5-8.0)
[2025-01-13 14:35] LABS: Free T4 (Free Thyroxine) 0.97 ng/dL (0.71-1.85)
== END 2025-01-13 10:15 | disposition home or self-care (01) ==
LOC: HO.HMGCX 10:14
PROVIDERS: PCP Internal Medicine; Visit Provider Internal Medicine
DX: R60.0 Localized edema (principal); M51.369 Other intervertebral disc degeneration, lumbar region without mention of lumbar back pain or lower extremity pain; R06.09 Other forms of dyspnea; I11.0 Hypertensive heart disease with heart failure; I50.30 Unspecified diastolic (congestive) heart failure; E83.42 Hypomagnesemia
CPT/HCPCS: 36415; 71046; 72100; 80053; 83880; 84439; 84443; 85025; 96127

== ENCOUNTER → 2025-01-13 11:40 | Outpatient (BNV) | payer OTHER, SELFPAY | PROVIDERS: PCP Internal Medicine; Visit Provider Radiology Diagnostic Radiology | DX: M51.369 Other intervertebral disc degeneration, lumbar region without mention of lumbar back pain or lower extremity pain (principal); K44.9 Diaphragmatic hernia without obstruction or gangrene | CPT/HCPCS: 71046; 72100 ==

== ENCOUNTER 2025-01-22 09:33 | Outpatient (REF) | payer OTHER, SELFPAY ==
--- OUTSIDE RECORDS SUMMARY | 2025-01-22 10:16 | XMS_ITS ---
Author Organization [facility] Address [address] [place] [address] [place] [phone] Care Team Providers Care Aerotriangulation Specialist Name Role Phone Ni Garduno MD Primary Care Provider Giles Cobos Jr, Billy Evans REASON FOR VISIT screening Problems Problem Type SNOMED Code ICD Code Onset Dates Problem Status W/U Status Risk Notes Problem Personal history of colonic polyps (Z86.010) Active confirmed Encounters Encounter Location Date Provider Diagnosis [facility] [address] [place], [place] [id number] 08/11/2023 Billy Cobos Jr Encounter for screening [...] Name:Billy roe Jr, 03/24/2025 09:20:00 AM, [address] [place] [address], [address], [place], [address], Progress Notes * DILIP ROBB:[birth year] (70 yo F)Acc No.[id number]:08/11/2023 COLON WITH MAC Patient:?DILIP ROBB Provider:?Billy Cobos MD :1955???Age:68 Y???Sex:Female D ate:08/11/2023 Address:[address] [place] [address] [place] [id number] Pcp:Ni Garduno MD Subjective: * Chief Complaints: * ???1. Screening. * Medical History:? Objective: * Vitals:? Assessment: * Assessment: 1.?Encounter for screening c olonoscopy - Z12.11 (Primary)???2.?Personal history of colonic polyps - Z86.010???3.?Colon polyps - K63.5??? Plan: * Treatment: * Procedure Codes:?18600 LESIO N REMOVAL COLONOSCOPY, 08729 LESION REMOVE COLONOSCOPY, Modifiers: 59 , 87454 COLONOSCOPY AND BIOPSY, Modifiers: 59 * * The named appointment provid er may or may not be the originator of this progress note, and it is not deemed complete until electronically signed by the appointment provider. Sign off status: Pending * Provider:?Billy Cobos MD Date:?1 10/12/2022 Generated for Heather rahman/Justo/eTcarmellasmitting on:?01/22/2025 10:16 AM EDT
[2025-01-22 13:47] LABS: Anion Gap 20 (12-20); Blood Urea Nitrogen 18 mg/dL (9-16); Calcium 7.2 mg/dL (8.4-10.2); Carbon Dioxide 23 mmol/L (22-29); Chloride 98 mmol/L (96-108); Estimated Glomerular Filt Rate 17; Glucose Random 86 mg/dL (60-115); Potassium 4.3 mmol/L (3.3-5.1); Sodium 137 mmol/L (135-145)
== END 2025-01-22 09:34 | disposition home or self-care (01) ==
LOC: HO.HMGCLDS 09:33
PROVIDERS: PCP Internal Medicine; Visit Provider Internal Medicine
DX: I50.30 Unspecified diastolic (congestive) heart failure (principal)
CPT/HCPCS: 36415; 80048

== ENCOUNTER 2025-01-28 13:40 | Outpatient (AMB) | payer OTHER, SELFPAY ==
[2025-01-28 13:55] VITALS: BP 92/60; PULSE 106; RESP 18; TEMP 36.7; O2SAT 97; BMI 30.7
--- NOTE | 2025-01-28 13:55 | A.OFFPC_ITS ---
Vital Signs 01/28/25 13:55 Height 5 ft 1.5 in Weight 165 lb BMI 30.7 BP 92/60 Blood Pressure Location Lt brachial Position Sitting Respiration 18 Pulse 106 H Pulse Source Pulse Oximeter Temp 98.1 F Temp Source Oral Pulse Oximetry (%) 97 Oxygen Delivery Method Room Air Intake Visit Reasons: 2 weeks f/up Intake Note: Pt is here today for 2 weeks follow up visit. Allergies amoxicillin [AMOXICILLIN] Allergy (Intermediate, Verified 01/28/25 13:58) HIVES latex Allergy (Intermediate, Verified 01/28/25 13:58) Redness of Skin, irritation Medication List - Last Reconciled 01/28/25 by Ni Garduno MD alprazolam 0.25 mg (1/2 x 0.5 mg) PO BEDTIME PRN atorvastatin 20 mg PO DAILY budesonide-formoterol 80-4.5 mcg/actuation (Symbicort) 2 puffs PO BID citalopram 40 mg PO DAILY docusate sodium 100 mg PO BID furosemide 20 mg PO DAILY latanoprost 0.005% 1 drp ophthalmic (eye) BEDTIME lidocaine 5% 2 patches topical DAILY losartan 100 mg PO DAILY magnesium oxide 400 mg PO BID omeprazole 20 mg PO DAILY potassium chloride ER 30 mEq (3 x 10 mEq) PO DAILY timolol maleate 0.5% 1 drp ophthalmic (eye) DAILY@0630 Tobacco use date assessed: 01/13/25 Dental Screening Dental Screen Date: 11/01/24 HPI 2 weeks f/up HPI Details Patient presents for the follow-up of lower extremity edema. She has been taking furosemide with spironolactone and lost 15 lb in 2 weeks. He patient noticed significant improvement in lower extremity swelling. She denies chest pain shortness or breath palpitations. Patient reports chronic intermittent diarrhea with negative GI workup last year and diagnosed with IBS patient denies abdominal pain hematochezia or melena [facility] Medical History (Updated 01/28/25 @ 14:43 by Ni Garduno MD) Cerumen impaction Hypermagnesemia Rib pain on left side HLD (hyperlipidemia) Glaucoma Elevated LFTs Osteoarthritis of hips, bilateral Nevus Annual physical exam Postmenopausal Knee pain, chronic Ramon's esophagus Plantar fasciitis of left foot Hypercholesterolemia Anxiety HTN (hypertension) Surgical History History of total left hip arthroplasty Hx of eye surgery H/O colonoscopy History of esophagogastroduodenoscopy (EGD) Family History Father Bladder cancer Mother No problems noted. Maternal Grandmother COPD (chronic obstructive pulmonary disease) Myocardial infarction Maternal Grandfather No problems noted. Paternal Grandfather No problems noted. Paternal Grandmother No problems noted. 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 Cognitive needs: No Hearing needs: Yes Vision needs: Yes Questionnaire Thrive Questionnaire Date Thrive assessed: 10/29/24 I am a: Patient What is your living situation today?: I have a steady place to live Within the past 12 months, did the food you bought not last and you didn't have the money to get more?: Never true Within the past 12 months, did you worry whether your food would run out before you got money to buy more?: Never true Do you have trouble paying for medicines?: No Do you have trouble getting transportation to medical appointments?: No Do you have trouble paying your heating and electricity bill?: No Do you have trouble taking care of your child, family member or friend?: No Do you have trouble with day-to-day activities such as bathing, preparing meals, shopping, managing finances, etc.?: No Are you currently unemployed and looking for a job?: No Are you interested in more education?: No Please select the resources that you would like help with: None Currently or been in a relationship where the following occur: No concerns reported THRIVE Score: 0 LU-7 AMB Questionnaire LU-7 Date LU - 7 assessed: 03/07/25 Source: Developed by Drs. Maosn Borges, Kathrin Jimenes, Juan Ibarra and colleagues, with an educational meli from [employer]. Review of Systems Const All systems reviewed & are unremarkable except as noted in HPI and below Eyes Reports no additional complaints ENT Reports no additional complaints Card Reports no additional complaints Resp Reports no additional complaints GI Reports no additional complaints Reports no additional complaints Physical exam (Primary Care) Vital Signs: Last Vital Signs Temp 98.1 F 01/28/25 13:55 Pulse 106 H 01/28/25 13:55 Resp 18 01/28/25 13:55 BP 92/60 01/28/25 13:55 Pulse Ox 97 01/28/25 13:55 Oxygen Delivery Method Room Air 01/28/25 13:55 BMI result Body Mass Index 30.7 Tobacco/Smoking Status: Tobacco use Status Tobacco use date assessed 01/13/25 01/28/25 14:02 Patient Tobacco Use Status Never used Tobacco 01/28/25 14:02 e-Cigarette/Vaping Use Never Used 01/28/25 14:02 Thrive Assessment: Date of Thrive Assessment Date Thrive assessed 10/29/24 01/28/25 14:02 Currently or been in a relationship where the following occur: No concerns reported Const General: no acute distress HENMT Head: Yes normal to inspection Eyes General: appearance normal, both eyes and all related structures Resp Effort & Inspection: normal respiratory effort Auscultation: clear to auscultation bilaterally Cardio Rhythm: regular rhythm Heart sounds: S1 normal heart sound present and S2 normal heart sound present Extrem Other: 1+ pitting edema bilaterally Coding Level of Care Code Est Pt Level 3 (89861) Diagnoses Acute renal insufficiency N28.9 Heart failure with preserved ejection fraction I50.30 Assessment & Plan Assessment & Plan (1) Acute renal insufficiency: Code(s): N28.9 - Disorder of kidney and ureter, unspecified Category: Medical Plan: Obtain renal ultrasound. Patient has stopped spironolactone yesterday and was advised to take a half a tablet of losartan for 3 days. Basic metabolic panel will be checked in 2 days (2) Heart failure with preserved ejection fraction: Comment: Echo 02/17 nl EF Code(s): I50.30 - Unspecified diastolic (congestive) heart failure Category: Medical Plan: check Echo
--- OUTSIDE RECORDS SUMMARY | 2025-01-28 15:20 | XMS_ITS ---
Author Organization [facility] Address [address] [place] [address] Care Team Providers Care Health Promotion Educator Name Role Phone Ni Garduno MD Primary Care Provider Giles Cobos Jr, Billy Evans REASON FOR VISIT screening Problems Problem Type SNOMED Code ICD Code Onset Dates Problem Status W/U Status Risk Notes Problem History of polyp of colon (situation) (777558097) Personal history of colonic polyps (Z86.010) Active confirmed Encounters Encounter Location Date Provider Diagnosis [facility] [address] [place] [phone] 08/11/2023 Billy Cobos Jr Encounter for screening [...] Name:Billy roe Jr, 03/24/2025 09:20:00 AM, [address], [address], [place], [address], Progress Notes * DILIP ROBB:[birth year] (70 yo F)Acc No.[id number]:08/11/2023 COLON WITH MAC Patient:?DILIP ROBB Provider:?Billy Cobos MD :1955???Age:68 Y???Sex:Female D ate:08/11/2023 Address:[address] [place] [address] Pcp:Ni Garduno MD Subjective: * Chief Complaints: * ???1. Screening. * Medical History:? Objective: * Vitals:? Assessment: * Assessment: 1.?Encounter for screening c olonoscopy - Z12.11 (Primary)???2.?Personal history of colonic polyps - Z86.010???3.?Colon polyps - K63.5??? Plan: * Treatment: * Procedure Codes:?18353 LESIO N REMOVAL COLONOSCOPY, 94767 LESION REMOVE COLONOSCOPY, Modifiers: 59 , 84194 COLONOSCOPY AND BIOPSY, Modifiers: 59 * * The named appointment provid er may or may not be the originator of this progress note, and it is not deemed complete until electronically signed by the appointment provider. Sign off status: Pending * Provider:?Billy Cobos MD Date:?1 10/12/2022 Generated for Heather rahman/Justo/Britneysmitting on:?01/28/2025 03:20 PM EDT
== END 2025-01-28 14:39 | disposition home or self-care (01) ==
LOC: HO.HMCC 13:41
PROVIDERS: PCP Internal Medicine; Visit Provider Internal Medicine
DX: N28.9 Disorder of kidney and ureter, unspecified (principal); I50.30 Unspecified diastolic (congestive) heart failure

== ENCOUNTER → 2025-01-28 13:40 | Outpatient (BNVA) | payer OTHER, SELFPAY | PROVIDERS: PCP Internal Medicine; Visit Provider Internal Medicine ==

== ENCOUNTER 2025-01-31 09:08 | Outpatient (REF) | payer OTHER, SELFPAY ==
--- NOTE | ~2025-01-31 | US_ITS ---
CLINICAL HISTORY: N19 - Unspecified kidney failure US abdomen limited Comparison: None Findings: The visualized pancreas is normal. The liver is normal in size with increase of echogenicity. There is no intrahepatic bile duct dilatation. The common duct is 2.0 mm in diameter. The gallbladder is normal. There is no sonographic Francis sign. The main portal vein is antegrade. The right kidney is 9.3 cm in length. No ascites. IMPRESSION: Unremarkable ultrasound of the right kidney. Hepatic steatosis. This document has been electronically signed by: Estela Craig MD on 01/31/2025 16:46:28
[2025-01-31 13:24] LABS: Appearance Urine Cloudy; Color Urine Dark Yellow; Glucose Urine UA Negative (Negative); Leukocyte Esterase Urine Small (1+) (Negative); Nitrite Urine Negative (Negative); UMIC TRIGGER UA YES; Urine Blood Negative (Negative); Urine Ketones Trace mg/dL (Negative); Urine Protein Trace mg/dL (Neg-Trace)
[2025-01-31 13:41] LABS: Alanine Aminotransferase 53 U/L (0-31); Albumin Level 3.2 g/dL (3.5-5.0); Alkaline Phosphatase 121 U/L (39-117); Anion Gap 15 (12-20); Aspartate Amino Transferase 129 U/L (5-31); Bilirubin Total 1.2 mg/dL (0.0-1.0); Blood Urea Nitrogen 23 mg/dL (9-16); Calcium 6.8 mg/dL (8.4-10.2); Carbon Dioxide 21 mmol/L (22-29); Chloride 106 mmol/L (96-108); Estimated Glomerular Filt Rate 30; Glucose Random 91 mg/dL (60-115); Magnesium 0.7 mg/dL (1.6-2.6); Sodium 138 mmol/L (135-145); Total Protein 5.7 g/dL (6.5-8.0)
[2025-01-31 13:43] LABS: Bacteria Urine 4+ (None Seen); RBC Urine 0-2 /HPF (0-2); WBC Urine 21-50 /HPF (0-5)
== END 2025-01-31 09:09 | disposition home or self-care (01) ==
LOC: HO.HMGCX 09:08
PROVIDERS: PCP Internal Medicine; Visit Provider Internal Medicine
DX: R19.7 Diarrhea, unspecified (principal); R79.89 Other specified abnormal findings of blood chemistry; N19 Unspecified kidney failure
CPT/HCPCS: 36415; 76705; 80053; 81001; 83735

== ENCOUNTER → 2025-01-31 09:10 | Outpatient (BNV) | payer OTHER, SELFPAY | PROVIDERS: PCP Internal Medicine; Visit Provider Nuclear Medicine | DX: R93.2 Abnormal findings on diagnostic imaging of liver and biliary tract (principal); R22.42 Localized swelling, mass and lump, left lower limb | CPT/HCPCS: 76705; 93971 ==

== ENCOUNTER 2025-01-31 15:23 | Emergency (ER) | payer OTHER, SELFPAY ==
[2025-01-31] VITALS (8 sets, daily range): BP systolic 81–103; BP diastolic 50–69; PULSE 84–96; RESP 13–16; TEMP 36.1–36.8; O2SAT 95–97; BMI 29.8
--- NOTE | ~2025-01-31 | US_ITS ---
CLINICAL HISTORY: Swollen leg Venous duplex ultrasound left lower extremity Comparison: None Findings: The visualized deep veins are fully compressible with normal Doppler color flow and spectral tracings. No popliteal cyst. IMPRESSION: 1. Negative for left lower extremity deep vein thrombosis. This document has been electronically signed by: Estela Craig MD on 01/31/2025 18:04:53
--- NOTE | 2025-01-31 15:30 | ECG_ITS ---
Test Reason : ABNORMAL LABS Blood Pressure : */* mmHG Vent. Rate : 86 BPM Atrial Rate : 86 BPM P-R Int : 150 ms QRS Dur : 70 ms QT Int : 420 ms P-R-T Axes : 54 -15 29 degrees QTcB Int : 502 ms Normal sinus rhythm Inferior infarct , age undetermined Abnormal ECG When compared with ECG of 26-Feb-2021 09:16, Premature ventricular complexes are no longer Present Inverted T waves have replaced nonspecific T wave abnormality in Anterior leads QT has lengthened Referred By: Trish Keller Electronically Signed By: BRENDA XIE
--- NOTE | 2025-01-31 15:30 | ED.GENADULT ---
HPI - General Adult General Chief complaint: Recheck/Abnormal Lab/Rx Stated complaint: pcp called ahead needs an IV for magnesium Time Seen by Provider: 01/31/25 15:37 History of Present Illness ED Provider: Dr. Diaz HPI narrative: 70 y/o F patient; PMH HFpEF (ECHO 01/2023 showed a normal EF - pending repeat out-patient ECHO), hx alcohol use disorder with hypokalemia and hypomagnesemia, asthma, HTN, HLD; presents from PCP office with report of hypomagnesemia found on routine lab work. Patient denies any complaints. She denies: fever or chills, SOB, cough/congestion, chest pain, abdominal pain, nausea/vomiting/diarrhea, headache. She does report recently being started on Spironolactone and Lasix for lower extremity edema. Related Data Home Medications ?Medication ?Instructions ?Recorded ?Confirmed latanoprost 0.005 % eye drops 1 drp ophthalmic (eye) BEDTIME 12/30/20 01/28/25 timolol maleate 0.5 % eye drops 1 drp ophthalmic (eye) DAILY@0630 12/30/20 01/28/25 Previous Rx's ?Medication ?Instructions ?Recorded docusate sodium 100 mg capsule 100 mg PO BID #30 caps 03/18/21 lidocaine 5 % topical patch 2 patch topical DAILY #60 ea 09/24/21 omeprazole 20 mg capsule,delayed 20 mg PO DAILY #90 caps 02/08/22 release budesonide-formoterol HFA 80 2 puff PO BID #10.2 grams 12/13/23 mcg-4.5 mcg/actuation aerosol inhaler (Symbicort) losartan 100 mg tablet 100 mg PO DAILY #90 tabs 04/24/24 furosemide 20 mg tablet 20 mg PO DAILY #30 tabs 07/28/24 atorvastatin 20 mg tablet 20 mg PO DAILY #90 tabs 08/12/24 potassium chloride 10 mEq 30 meq (3 x 10 mEq) PO DAILY #90 10/03/24 tablet,extended release tabs citalopram 40 mg tablet 40 mg PO DAILY #90 tabs 11/01/24 alprazolam 0.5 mg tablet 0.25 mg (1/2 x 0.5 mg) PO BEDTIME 01/15/25 PRN sleep #15 tabs magnesium oxide 400 mg (241.3 mg 400 mg PO BID #60 tabs 01/27/25 magnesium) tablet Allergies Allergy/AdvReac Type Severity Reaction Status Date / Time amoxicillin [AMOXICILLIN] Allergy Intermediate HIVES Verified 01/31/25 15:31 latex Allergy Intermediate Redness of Verified 01/31/25 15:31 Skin, irritation Review of Systems Review of Systems: Yes all other systems are reviewed and are negative PMFSH Past Medical History Attestation statement: The following information was validated with the patient. Source: old records reviewed Medical History Cerumen impaction Hypermagnesemia Rib pain on left side HLD (hyperlipidemia) Glaucoma Elevated LFTs Osteoarthritis of hips, bilateral Nevus Annual physical exam Postmenopausal Knee pain, chronic Ramon's esophagus Plantar fasciitis of left foot Hypercholesterolemia Anxiety HTN (hypertension) Surgical History History of total left hip arthroplasty Hx of eye surgery H/O colonoscopy History of esophagogastroduodenoscopy (EGD) Family History Family History Father Bladder cancer Mother No problems noted. Maternal Grandmother COPD (chronic obstructive pulmonary disease) Myocardial infarction Maternal Grandfather No problems noted. Paternal Grandfather No problems noted. Paternal Grandmother No problems noted. Brother Substance use disorder Social History Social History Household Members: Spouse Household Members Other:: Housing: House Are you a primary child care group leader to a significant other at home: No Do you presently have visiting nurse or other home services: No Alcohol intake: current Alcohol intake frequency: holidays/special occasions only Alcohol type: wine Comment: bath mat has rubber backing Patient Tobacco Use Status: Never used Tobacco Smoked in Last 30 Days: No e-Cigarette/Vaping Use: Never Used Second Hand Smoke Exposure: No Use of substances other than those prescribed or required for medical reasons: No Advance Directives: No Advance Directives Information Provided: Yes Do you have a plan to hurt others: No Plan service: No Current occupational status: employed 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 Cognitive needs: No Hearing needs: Yes Vision needs: Yes Physical Exam ED Vital Signs: Vital Signs - 24 hr 01/31/25 15:29 01/31/25 16:10 01/31/25 16:47 Temperature 97.0 F 97.4 F Pulse Rate 96 85 Respiratory Rate 16 16 Blood Pressure 83/50 L 81/52 L 93/55 L Pulse Oximetry 95 96 Oxygen Delivery Method Room Air Room Air 01/31/25 17:41 01/31/25 18:39 01/31/25 19:50 Temperature 98.2 F 97.8 F Pulse Rate 84 85 85 Respiratory Rate 16 13 16 Blood Pressure 98/56 L 103/52 L 101/69 Pulse Oximetry 97 96 97 Oxygen Delivery Method Room Air Room Air Room Air BMI result Body Mass Index 29.8 Patient is afebrile with soft blood pressure. Const General: cooperative and no acute distress HENMT Head: Yes normal to inspection and Yes atraumatic Eyes General: appearance normal, both eyes and all related structures Pupils: Equal, round and reactive pupils present EOM: EOMs intact bilaterally Neck Neck: Yes normal visual inspection, Yes full ROM, Yes supple and No tender Chest Chest palpation & inspection: normal inspection of the chest and normal palpation of entire chest wall Resp Effort & Inspection: normal respiratory effort, able to speak in complete sentences, no cough and no respiratory distress Auscultation: clear to auscultation bilaterally Cardio Rate: regular rate Rhythm: regular rhythm Peripheral pulses: Peripheral pulses 2+ throughout GI Inspection: Yes normal to inspection, No Abdominal wall edema and No distended Palpation (GI): Soft to palpation, not firm, nontender, no guarding and not rigid Auscultation: normal bowel sounds Back/Spine/Pelvis Back: No back tenderness Neuro Cranial nerves: Yes Equal, round and reactive pupils present Extrem Other: RLE: 1+ lower extremity pitting edema LLE: 2+ lower extremity pitting edema Course Course Course Narrative: 01/31/25 1531 EDWIN Mars This is a Rapid Medical Examination (RME) performed by Chris Keller PA-C in triage. Full HPI, ROS, assessment and treatment plan per primary provider in the Main ED. Hx: 70 yo F presents to the ED after receiving call from PCP for low magnesium levels on blood work this morning. no physical complaints. no dizziness, chest pain. PE/vitals: hypotensive - took BP meds last night. Plan: labs, ekg chargeback analyst aware at 1633 -- patient brought back to main ED bed. Reevaluation(s) Reevaluation #1: Patient is afebrile, she has low blood pressure in triage. Reviewed triage initiated lab work. Mild leukopenia 4.6. No significant anemia. MCV quite elevated. Ethanol mildly elevated at 70. Providing 1L IVF and Magnesium 2g IV. Also gave magnesium 800mg PO. Ordered for US LLE. US negative for DVT. Re-checked magnesium level which improved appropriately to 1.4. Provided additional 2g IV Magnesium. Plan: Discharge to home with PCP follow up for lab re-check in 1 - 2 weeks Return precautions given Medications Administered Discontinued Medications Generic Name Dose Route Start Last Admin Trade Name Freq PRN Reason Stop Dose Admin Magnesium Sulfate 2 gm in 50 mls @ 25 mls/hr 01/31/25 16:26 01/31/25 18:39 Magnesium Sulfate/H2o IV 01/31/25 18:25 Infused ONCE ONE Infusion Sodium Chloride 1,000 mls @ 999 mls/hr 01/31/25 16:30 01/31/25 19:07 Ns IV 01/31/25 17:30 Infused .Q1H1M ANDREW Infusion Magnesium Oxide 800 mg 01/31/25 18:24 01/31/25 19:06 Magnesium Oxide 400 Mg Tablet PO 01/31/25 18:25 800 mg ONCE ONE Administration Medical Decision Making Lab Data 01/31/25 15:46 01/31/25 16:17 Labs: Lab Results 01/31/25 01/31/25 01/31/25 Range/Units 15:46 16:17 17:51 WBC 4.6 L (4.8-10.8) X10*3/uL RBC 3.77 L (4.20-5.50) X10*6/uL Hgb 12.3 (12.0-16.0) g/dl Hct 36.4 L (37.0-47.0) % MCV 96.6 (80.0-98.0) fL MCH 32.6 (27.0-33.0) pg MCHC 33.8 (31.0-35.0) g/dl RDW 14.1 (11.0-16.0) % Plt Count 162 (160-400) X10*3/uL MPV 9.6 (9.4-12.3) fL Immature Gran % (Auto) 0.2 (0.0-0.4) % Neut % (Auto) 44.4 L (45-73) % Lymph % (Auto) 44.7 H (20-40) % Twiggs % (Auto) 8.9 (2-11) % Eos % (Auto) 0.9 (0-4) % Baso % (Auto) 0.9 (0-2) % Lymph # (Auto) 2.1 (1.2-4.9) X10*3/uL Twiggs # (Auto) 0.4 (0.1-1.2) X10*3/uL Eos # (Auto) 0.0 (0.0-0.4) X10*3/uL Baso # (Auto) 0.0 (0.0-0.2) X10*3/uL Abs Immat Gran (auto) 0.01 (0.00-0.03) X10*3/uL Absolute Neuts (auto) 2.0 (2.0-8.3) x10*3/uL Absolute Nucleated RBC 0.000 (0.0-0.012) X10*3/uL Nucleated RBC % (auto) 0.0 (0.0-0.2) /100WBC Sodium 138 (135-145) mmol/L Potassium 4.8 (3.3-5.1) mmol/L Chloride 109 H (96-108) mmol/L Carbon Dioxide 16 L (22-29) mmol/L Anion Gap 18 (12-20) BUN 21 H (9-16) mg/dL Creatinine 1.58 H (0.5-1.4) mg/dL Estim Creat Clear Calc 31.1 Estimated GFR 32 Random Glucose 76 (60-115) mg/dL Calcium 6.7 L (8.4-10.2) mg/dL Magnesium 0.8 L* (1.6-2.6) mg/dL Total Bilirubin 0.8 (0.0-1.0) mg/dL AST 132 H (5-31) U/L ALT 51 H (0-31) U/L Alkaline Phosphatase 111 (39-117) U/L B-Natriuretic Peptide 53 (<100) pg/mL Total Protein 5.5 L (6.5-8.0) g/dL Albumin 3.1 L (3.5-5.0) g/dL Lipase 100 H (8-78) U/L Ethyl Alcohol 70 mg/dL 01/31/25 Range/Units 19:47 WBC (4.8-10.8) X10*3/uL RBC (4.20-5.50) X10*6/uL Hgb (12.0-16.0) g/dl Hct (37.0-47.0) % MCV (80.0-98.0) fL MCH (27.0-33.0) pg MCHC (31.0-35.0) g/dl RDW (11.0-16.0) % Plt Count (160-400) X10*3/uL MPV (9.4-12.3) fL Immature Gran % (Auto) (0.0-0.4) % Neut % (Auto) (45-73) % Lymph % (Auto) (20-40) % Twiggs % (Auto) (2-11) % Eos % (Auto) (0-4) % Baso % (Auto) (0-2) % Lymph # (Auto) (1.2-4.9) X10*3/uL Twiggs # (Auto) (0.1-1.2) X10*3/uL Eos # (Auto) (0.0-0.4) X10*3/uL Baso # (Auto) (0.0-0.2) X10*3/uL Abs Immat Gran (auto) (0.00-0.03) X10*3/uL Absolute Neuts (auto) (2.0-8.3) x10*3/uL Absolute Nucleated RBC (0.0-0.012) X10*3/uL Nucleated RBC % (auto) (0.0-0.2) /100WBC Sodium (135-145) mmol/L Potassium (3.3-5.1) mmol/L Chloride (96-108) mmol/L Carbon Dioxide (22-29) mmol/L Anion Gap (12-20) BUN (9-16) mg/dL Creatinine (0.5-1.4) mg/dL Estim Creat Clear Calc Estimated GFR Random Glucose (60-115) mg/dL Calcium (8.4-10.2) mg/dL Magnesium 1.4 L* (1.6-2.6) mg/dL Total Bilirubin (0.0-1.0) mg/dL AST (5-31) U/L ALT (0-31) U/L Alkaline Phosphatase (39-117) U/L B-Natriuretic Peptide (<100) pg/mL Total Protein (6.5-8.0) g/dL Albumin (3.5-5.0) g/dL Lipase (8-78) U/L Ethyl Alcohol mg/dL Independent Interpretation I performed an independent interpretation of an: EKG Interpretation: NSR 86BPM with QTc 502. T wave inversion in leads V1 - V3. No prior recent EKG for comparison. Radiology Impression Discussion of test interpretation with radiology: I have reviewed the radiologist's reading. Radiologist Impression: CLINICAL HISTORY: Swollen leg Venous duplex ultrasound left lower extremity Comparison: None Findings: The visualized deep veins are fully compressible with normal Doppler color flow and spectral tracings. No popliteal cyst. IMPRESSION: 1. Negative for left lower extremity deep vein thrombosis. This document has been electronically signed by: Estela Craig MD on 01/31/2025 18:04:53 Discharge Plan Discharge Clinical Impression: Hypomagnesemia Patient Disposition: Home, Self-Care Instructions: Hypomagnesemia (ED) Additional Instructions: You were seen in the emergency department today for critically low magnesium. You received 4g IV magnesium and 800mg oral magnesium. Your magnesium improved appropriately. Please follow up with your primary doctor in the next 1 week for a re-evaluation and to re-check your lab work. Prescriptions: No Action omeprazole 20 mg capsule,delayed release(DR/EC) 20 mg PO DAILY Qty: 90 0RF budesonide-formoterol [Symbicort] 80-4.5 mcg/actuation HFA aerosol inhaler 2 puff PO BID Qty: 10.2 5RF furosemide 20 mg tablet 20 mg PO DAILY Qty: 30 1RF atorvastatin 20 mg tablet 20 mg PO DAILY Qty: 90 3RF potassium chloride 10 mEq tablet extended release 30 meq PO DAILY Qty: 90 1RF alprazolam 0.5 mg tablet 0.25 mg PO BEDTIME PRN (Reason: sleep) Qty: 15 0RF magnesium oxide 400 mg (241.3 mg magnesium) tablet 400 mg PO BID Qty: 60 6RF docusate sodium 100 mg Capsule 100 mg PO BID Qty: 30 0RF lidocaine 5 % adhesive patch,medicated 2 patch topical DAILY Qty: 60 5RF Rx Instructions: leave on most painful area for up to 12 hrs timolol maleate 0.5 % drops 1 drp ophthalmic (eye) DAILY@0630 latanoprost 0.005 % drops 1 drp ophthalmic (eye) BEDTIME losartan 100 mg tablet 100 mg PO DAILY Qty: 90 3RF citalopram 40 mg tablet 40 mg PO DAILY Qty: 90 3RF Print Language: Martiniquais
[2025-01-31 15:54] LABS: MANUAL DIFF FLAG NO
[2025-01-31 15:56] LABS: Basophils Percent Auto 0.9 % (0-2); Eosinophils Percent Auto 0.9 % (0-4); Hematocrit 36.4 % (37.0-47.0); Hemoglobin 12.3 g/dl (12.0-16.0); Imm Gran Abs Auto 0.01 X10*3/uL (0.00-0.03); Imm Gran Pct Auto 0.2 % (0.0-0.4); Lymphocytes Absolute Auto 2.1 X10*3/uL (1.2-4.9); Lymphocytes Percent Auto 44.7 % (20-40); Mean Corpuscular HGB Conc 33.8 g/dl (31.0-35.0); Mean Corpuscular Hemoglobin 32.6 pg (27.0-33.0); Mean Corpuscular Volume 96.6 fL (80.0-98.0); Mean Platelet Volume 9.6 fL (9.4-12.3); Monocytes Absolute Auto 0.4 X10*3/uL (0.1-1.2); Monocytes Percent Auto 8.9 % (2-11); Neutrophils Percent Auto 44.4 % (45-73); Platelet Count 162 X10*3/uL (160-400); Red Blood Count 3.77 X10*6/uL (4.20-5.50); Red Cell Distribution Width 14.1 % (11.0-16.0); White Blood Count 4.6 X10*3/uL (4.8-10.8)
--- NOTE | 2025-01-31 16:20 | MHC.EDTECH ---
This pct just assumed care of Patient ,vitals taken ,RN aware of Patient low blood Pressure ,ekg taken and was read by Provider ,repeated labs drawn and sent to lab ,Call alas within Pt reach .
[2025-01-31] MEDS: 0.9 % Sodium Chloride 1,000 ML 999 ML IV (16:38)
[2025-01-31] MEDS: Magnesium Sulfate/H2O 2 GM/50 ML PIGGYBACK IV ×2 (16:41→20:28)
[2025-01-31 16:55] LABS: Alanine Aminotransferase 51 U/L (0-31); Albumin Level 3.1 g/dL (3.5-5.0); Anion Gap 18 (12-20); Aspartate Amino Transferase 132 U/L (5-31); Bilirubin Total 0.8 mg/dL (0.0-1.0); Blood Urea Nitrogen 21 mg/dL (9-16); Calcium 6.7 mg/dL (8.4-10.2); Carbon Dioxide 16 mmol/L (22-29); Chloride 109 mmol/L (96-108); Creatinine Clr Calc Pharmacy 31.1; Estimated Glomerular Filt Rate 32; Glucose Random 76 mg/dL (60-115); Magnesium 0.8 mg/dL (1.6-2.6); Potassium 4.8 mmol/L (3.3-5.1); Sodium 138 mmol/L (135-145); Total Protein 5.5 g/dL (6.5-8.0)
[2025-01-31 18:11] LABS: Ethanol 70 mg/dL
[2025-01-31 18:12] LABS: Lipase 100 U/L (8-78)
[2025-01-31 18:19] LABS: B Type Natriuretic Peptide 53 pg/mL (<100)
[2025-01-31] MEDS: Magnesium Oxide 400 MG TABLET 800 MG PO (19:06)
--- NOTE | 2025-01-31 19:09 | PC.NURSE ---
assumed care of pt. Pt medicated per OCT. ambulated to br with steady gate. respirations even and unlabored.
--- NOTE | 2025-01-31 19:51 | MHC.EDTECH ---
Repeated mag drawn and sent to lab ,vitals taken ,Patient comfortable watching television ,Call alas within Pt reach .
[2025-01-31 19:59] LABS: Alkaline Phosphatase 111 U/L (39-117)
[2025-01-31 20:15] LABS: Magnesium 1.4 mg/dL (1.6-2.6)
--- NOTE | 2025-01-31 20:32 | PC.NURSE ---
per , admin mag in 1 hour and d/c after infusion
== END 2025-01-31 21:40 | disposition home or self-care (01) ==
PROVIDERS: Physician Assistant Medical; Emergency Provider Emergency Medicine
DX: E83.42 Hypomagnesemia (principal); R79.89 Other specified abnormal findings of blood chemistry; R60.0 Localized edema; E87.6 Hypokalemia; R94.31 Abnormal electrocardiogram [ECG] [EKG]; I10 Essential (primary) hypertension; Z79.899 Other long term (current) drug therapy; Z51.81 Encounter for therapeutic drug level monitoring
CPT/HCPCS: 36415; 80053; 80307; 83690; 83735; 83880; 85025; 93005; 93971; 96361; 96365; 96375; 99285; J3475

== ENCOUNTER → 2025-01-31 15:30 | Outpatient (BNV) | payer OTHER, SELFPAY | PROVIDERS: Emergency Provider Emergency Medicine; Visit Provider Internal Medicine | DX: R94.31 Abnormal electrocardiogram [ECG] [EKG] (principal); R79.9 Abnormal finding of blood chemistry, unspecified | CPT/HCPCS: 93010 ==

== ENCOUNTER 2025-02-15 09:51 | Outpatient (REF) | payer OTHER, SELFPAY ==
--- OUTSIDE RECORDS SUMMARY | 2025-02-15 09:53 | XMS_ITS | Patient Health Record ---
Author Organization [facility] Address [address] [place] [address] Care Team Providers Care High Raw Sugar Boiler Name Role Phone Rell Baumann MD Primary Care Provider Terence Thomas [phone] Allergies Allergen (clinical drug ingredient) Drug/Non Drug Allergy documented on EMR Reaction Allergy Type Onset Date Status Biaxin hives Drug Allergy Active erythromycin Erythromycin hives Drug Allergy A ctive Penicillin hives Drug Allergy Active Z Pac hives Drug Allergy Active Reason For Referral No Information Medications Medication SIG (Take, Route, Frequency, Duration) Notes Start Date End Date Status Nabumetone 500 MG 1 tablet Orally Twic e a day for 30 day(s) 02/25/2013 Active Pravastatin Sodium 40 MG 1 tablet Orally Once a day for 30 day(s) Active Calcium 8646-6521 MG-UNIT 1 tablet with a meal Orally Once a day for 30 day(s) Active Aspirin 81 MG 1 tablet Orally Once a day for 30 day(s) Active Vitamin D 400 UNIT as directed Orally Active Omeprazole 20 MG 1 capsule Orally Onc e a day for 30 day(s) Active Nortriptyline HCl 25 MG 1 capsule Orally Twice a day for 30 day(s) Active Lisinopril 5 MG 1 tablet Orally Once a day for 30 day(s) Active Problems Problem Type SNOMED Code ICD Code Onset Dates Problem Status W/U Status Risk Notes Problem Bursitis (60037548) Bursitis (727.3) Active confirmed Problem Congenital pes planus (07344222) Flat Foot, Congenital (754.61) Active confirmed Problem Myositis (66872436) Myositis (729.1) Active confirmed Problem Pain in limb (64324304) Pain in Limb (729.5) Active confirmed Problem Plantar fasciitis (459528344) Plantar Fasciitis (728.71) Active confirmed Plan Of Treatment Pending Test Test Name Order Date ,[id number] TENDON SHEATH/LIGAMENT 0 01/23/2013,[id number] TENDON SHEATH/LIGAMENT 0 03/11/2013 Insurance Providers Payer Name Payer Address Payer Phone Subscriber Number Group Number Insured Name Patient Relationship to Insured Coverage Start Date Coverage End Date [facility] [address] [place] [address] [id number] Myra William Self - patient is the insured Medical (General) History Medical History History ICD Code anxiety reflux chicken pox measles
[2025-02-15 11:20] LABS: MANUAL DIFF FLAG NO
[2025-02-15 11:24] LABS: Basophils Percent Auto 0.9 % (0-2); Eosinophils Absolute Auto 0.1 X10*3/uL (0.0-0.4); Eosinophils Percent Auto 3.1 % (0-4); Hematocrit 34.4 % (37.0-47.0); Hemoglobin 11.3 g/dl (12.0-16.0); Imm Gran Abs Auto 0.01 X10*3/uL (0.00-0.03); Imm Gran Pct Auto 0.3 % (0.0-0.4); Lymphocytes Absolute Auto 1.1 X10*3/uL (1.2-4.9); Lymphocytes Percent Auto 33.8 % (20-40); Mean Corpuscular HGB Conc 32.8 g/dl (31.0-35.0); Mean Corpuscular Hemoglobin 32.3 pg (27.0-33.0); Mean Corpuscular Volume 98.3 fL (80.0-98.0); Mean Platelet Volume 9.7 fL (9.4-12.3); Monocytes Absolute Auto 0.3 X10*3/uL (0.1-1.2); Monocytes Percent Auto 9.8 % (2-11); Neutrophils Absolute Auto 1.7 x10*3/uL (2.0-8.3); Neutrophils Percent Auto 52.1 % (45-73); Platelet Count 158 X10*3/uL (160-400); Red Cell Distribution Width 14.6 % (11.0-16.0); White Blood Count 3.3 X10*3/uL (4.8-10.8)
[2025-02-15 11:43] LABS: Alanine Aminotransferase 71 U/L (0-31); Albumin Level 3.3 g/dL (3.5-5.0); Alkaline Phosphatase 138 U/L (39-117); Anion Gap 12 (12-20); Aspartate Amino Transferase 148 U/L (5-31); Bilirubin Total 1.5 mg/dL (0.0-1.0); Blood Urea Nitrogen 10 mg/dL (9-16); Calcium 8.6 mg/dL (8.4-10.2); Carbon Dioxide 25 mmol/L (22-29); Chloride 105 mmol/L (96-108); Cholesterol 163 mg/dL (<200); Estimated Glomerular Filt Rate > 60; Glucose Fasting 94 mg/dL (60-99); HDL Cholesterol 94 mg/dL (>40); LDL Cholesterol Calculated 54 mg/dL (<100); Potassium 4.4 mmol/L (3.3-5.1); Sodium 138 mmol/L (135-145); Total Protein 5.5 g/dL (6.5-8.0); Triglycerides 78 mg/dL (<150)
[2025-02-15 11:52] LABS: Magnesium 1.2 mg/dL (1.6-2.6)
[2025-02-15 11:58] LABS: Vitamin D 25-OH Total 14.3 ng/mL (>30)
== END 2025-02-15 09:52 | disposition home or self-care (01) ==
LOC: HO.HMGCLDS 09:51
PROVIDERS: PCP Internal Medicine; Visit Provider Internal Medicine
DX: I10 Essential (primary) hypertension (principal); R79.89 Other specified abnormal findings of blood chemistry; E87.6 Hypokalemia; E78.00 Pure hypercholesterolemia, unspecified; E55.9 Vitamin D deficiency, unspecified
CPT/HCPCS: 36415; 80053; 80061; 82306; 83735; 85025

== ENCOUNTER 2025-02-17 10:15 | Outpatient (AMB) | payer OTHER, SELFPAY ==
[2025-02-17 10:21] VITALS: BP 108/64; PULSE 94; RESP 18; TEMP 36.6; O2SAT 97; BMI 31.4
--- NOTE | 2025-02-17 10:21 | MHC.PC.OV ---
Vital Signs 02/17/25 10:21 Height 5 ft 1.5 in Weight 169 lb BMI 31.4 BP 108/64 Blood Pressure Location Rt brachial Position Sitting Respiration 18 Pulse 94 Pulse Source Pulse Oximeter Temp 97.9 F Temp Source Oral Pulse Oximetry (%) 97 Oxygen Delivery Method Room Air Intake Visit Reasons: Follow up Allergies amoxicillin (AMOXICILLIN) Allergy (Intermediate, Verified 01/31/25 15:31) HIVES latex Allergy (Intermediate, Verified 01/31/25 15:31) Redness of Skin, irritation Tobacco use date assessed: 01/13/25 Dental Screening Dental Screen Date: 11/01/24 HPI Follow up HPI Details Patient presents for the follow-up. She went to the ER with hypomagnesemia received 3 g of IV magnesium. Patient reports intermittent diarrhea once or twice at night. She continues to consume 2 glasses of wine every night but has been trying to cut down. Patient complains of anxiety and insomnia and has been taking citalopram and having psychotherapy once a week. Patient denies suicide ideation but reports poor appetite. Patient's has started a day program today. Hypertension is controlled on current medication. [facility] Medical History Cerumen impaction Rib pain on left side HLD (hyperlipidemia) Glaucoma Elevated LFTs Osteoarthritis of hips, bilateral Nevus Annual physical exam Postmenopausal Knee pain, chronic Ramon's esophagus Plantar fasciitis of left foot Hypercholesterolemia Anxiety HTN (hypertension) Surgical History History of total left hip arthroplasty Hx of eye surgery H/O colonoscopy History of esophagogastroduodenoscopy (EGD) Family History Father Bladder cancer Mother No problems noted. Maternal Grandmother COPD (chronic obstructive pulmonary disease) Myocardial infarction Maternal Grandfather No problems noted. Paternal Grandfather No problems noted. Paternal Grandmother No problems noted. 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 Cognitive needs: No Hearing needs: Yes Vision needs: Yes Questionnaire Thrive Questionnaire Date Thrive assessed: 10/29/24 I am a: Patient What is your living situation today?: I have a steady place to live Within the past 12 months, did the food you bought not last and you didn't have the money to get more?: Never true Within the past 12 months, did you worry whether your food would run out before you got money to buy more?: Never true Do you have trouble paying for medicines?: No Do you have trouble getting transportation to medical appointments?: No Do you have trouble paying your heating and electricity bill?: No Do you have trouble taking care of your child, family member or friend?: No Do you have trouble with day-to-day activities such as bathing, preparing meals, shopping, managing finances, etc.?: No Are you currently unemployed and looking for a job?: No Are you interested in more education?: No Please select the resources that you would like help with: None Currently or been in a relationship where the following occur: No concerns reported THRIVE Score: 0 LU-7 AMB Questionnaire LU-7 Date LU - 7 assessed: 11/01/24 Source: Developed by Drs. Mason Borges, Kathrin Jimenes, Juan Ibarra and colleagues, with an educational meli from [employer]. Review of Systems Const All systems reviewed & are unremarkable except as noted in HPI and below Eyes Reports no additional complaints ENT Reports no additional complaints Card Reports no additional complaints Resp Reports no additional complaints GI Reports no additional complaints Reports no additional complaints Physical exam (Primary Care) Vital Signs: Last Vital Signs Temp 97.9 F 02/17/25 10:21 Pulse 94 02/17/25 10:21 Resp 18 02/17/25 10:21 BP 108/64 02/17/25 10:21 Pulse Ox 97 02/17/25 10:21 Oxygen Delivery Method Room Air 02/17/25 10:21 BMI result Body Mass Index 31.4 Tobacco/Smoking Status: Tobacco use Status Tobacco use date assessed 01/13/25 02/17/25 10:21 Patient Tobacco Use Status Never used Tobacco 02/17/25 10:21 e-Cigarette/Vaping Use Never Used 02/17/25 10:21 Thrive Assessment: Date of Thrive Assessment Date Thrive assessed 10/29/24 02/17/25 10:21 Currently or been in a relationship where the following occur: No concerns reported Const General: no acute distress HENMT Head: Yes normal to inspection Resp Effort & Inspection: normal respiratory effort Auscultation: clear to auscultation bilaterally Cardio Rhythm: regular rhythm Heart sounds: S1 normal heart sound present and S2 normal heart sound present GI Inspection: Yes normal to inspection Palpation (GI): Soft to palpation Percussion: Yes normal to percussion Auscultation: normal bowel sounds Extrem Other: 1+ pitting edema bilaterally Coding Level of Care Code Est Pt Level 4 (86097) Complex EM visit Add On G2211 Diagnoses Hypomagnesemia E83.42 Hypokalemia E87.6 HTN (hypertension) I10 Alcohol abuse F10.10 Anxiety F41.9 Assessment & Plan Assessment & Plan (1) Hypomagnesemia: Code(s): E83.42 - Hypomagnesemia Category: Medical Plan: Continue magnesium supplement (2) Hypokalemia: Comment: Chronic diarrhea Code(s): E87.6 - Hypokalemia Category: Medical Plan: Continue potassium supplement, check comprehensive panel in 1 week and 1 month (3) HTN (hypertension): Code(s): I10 - Essential (primary) hypertension Category: Medical Plan: Continue losartan (4) Alcohol abuse: Code(s): F10.10 - Alcohol abuse, uncomplicated Category: Social Hx Plan: Cutting down on alcohol discussed with the patient. She will continue counseling (5) Anxiety: Code(s): F41.9 - Anxiety disorder, unspecified Category: Medical Plan: Aaa bupropion XL 150 mg daily to citalopram follow-up in 1 month Orders: Orders Comprehensive Met. Panel 1 Month E83.42 - Hypomagnesemia, E87.6 - Hypokalemia Vitamin D 25-OH Total 1 Month E83.42 - Hypomagnesemia, E87.6 - Hypokalemia Comprehensive Met. Panel 1 Week E83.42 - Hypomagnesemia, E87.6 - Hypokalemia Magnesium 1 Week E83.42 - Hypomagnesemia, E87.6 - Hypokalemia Vitamin B1 1 Month E83.42 - Hypomagnesemia, E87.6 - Hypokalemia Complete Blood Count Auto Diff 1 Month E83.42 - Hypomagnesemia, E87.6 - Hypokalemia Magnesium 1 Month E83.42 - Hypomagnesemia, E87.6 - Hypokalemia Medications: New bupropion HCl XL (Wellbutrin XL) 150 mg PO DAILY 90 tabs 0RF thiamine HCl (vitamin B1) 100 mg PO DAILY 90 tabs 1RF cholecalciferol (vitamin D3) 75 mcg PO DAILY 90 tabs 0RF
--- OUTSIDE RECORDS SUMMARY | 2025-02-17 11:23 | XMS_ITS | Patient Health Record ---
[facility] Address [address] [facility] [place] [address] Care Team Providers Care Hot Knife Foxing Cutter Name Role Phone Rell Baumann MD Primary Care Provider Terence Thomas [phone] Allergies Allergen (clinical drug ingredient) Drug/Non Drug [...] a day for 30 day(s) Active Calcium 7176-3567 MG-UNIT 1 tablet with a meal Orally [...] Status W/U Status Risk Notes Problem Bursitis (36643792) Bursitis (727.3) Active confirmed Problem Congenital pes planus (13844555) Flat Foot, Congenital (754.61) Active confirmed Problem Myositis (91166327) Myositis (729.1) Active confirmed Problem Pain in limb (90534238) Pain in Limb (729.5) Active confirmed Problem Plantar fasciitis (380916760) Plantar Fasciitis (728.71) Active confirmed Plan Of Treatment Pending Test Test Name Order Date ,[id number] TENDON SHEATH/LIGAMENT 0 01/23/2013,[id number] TENDON SHEATH/LIGAMENT 0 03/11/2013 Insurance Providers Payer Name Payer Address Payer Phone Subscriber Number Group Number Insured Name Patient Relationship to Insured Coverage Start Date Coverage End Date [facility] [address] [place] [address] [id number] Myra William Self - patient is the insured Medical (General) History Medical History History ICD Code anxiety reflux chicken pox measles
== END 2025-02-17 11:24 | disposition home or self-care (01) ==
LOC: HO.HMCC 10:15
PROVIDERS: Visit Provider Internal Medicine
DX: E83.42 Hypomagnesemia (principal); E87.6 Hypokalemia; I10 Essential (primary) hypertension; F10.10 Alcohol abuse, uncomplicated; F41.9 Anxiety disorder, unspecified

== ENCOUNTER → 2025-02-17 10:15 | Outpatient (BNVA) | payer OTHER, SELFPAY | PROVIDERS: Visit Provider Internal Medicine | DX: Z13.89 Encounter for screening for other disorder (principal) ==

== ENCOUNTER 2025-03-14 06:44 | Outpatient (REF) | payer OTHER, SELFPAY ==
--- OUTSIDE RECORDS SUMMARY | 2025-03-14 06:46 | XMS_ITS | Patient Health Record ---
Author Organization [facility] Address [address] [facility] [place] [address] Care Team Providers Care Sanitary Aide Name Role Phone Rell Baumann MD Primary Care Provider Terence Thomas [phone] Allergies Allergen (clinical drug ingredient) Drug/Non Drug [...] MG 1 tablet Orally Twic e a day; Duration: 30 day(s) 02/25/2013 Active Pravastatin Sodium 40 MG 1 tablet Orally Once a day; Duration: 30 day(s) Active Calcium 7627-9214 MG-UNIT 1 tablet with a meal Orally Once a day; Duration: 30 day(s) Active Aspirin 81 MG 1 tablet Orally Once a day; Duration: 30 day(s) Active Vitamin D 400 UNIT as directed Orally Active Omeprazole 20 MG 1 capsule Orally Onc e a day; Duration: 30 day(s) Active Nortriptyline HCl 25 MG 1 capsule Orally Twice a day; Duration: 30 day(s) Active Lisinopril 5 MG 1 tablet Orally Once a day; Duration: 30 day(s) Active Problems Problem Type SNOMED Code ICD Code Onset Dates Problem Status W/U Status Risk Notes Problem Bursitis (98744117) Bursitis (727.3) Active confirmed Problem Congenital pes planus (16809051) Flat Foot, Congenital (754.61) Active confirmed Problem Myositis (33540478) Myositis (729.1) Active confirmed Problem Pain in limb (54469116) Pain in Limb (729.5) Active confirmed Problem Plantar fasciitis (813792010) Plantar Fasciitis (728.71) Active confirmed Plan Of Treatment Pending Test Test Name Order Date ,[id number] TENDON SHEATH/LIGAMENT 0 01/23/2013,[id number] TENDON SHEATH/LIGAMENT 0 03/11/2013 Insurance Providers Payer Name Payer Address Payer Phone Subscriber Number Group Number Insured Name Patient Relationship to Insured Coverage Start Date Coverage End Date [facility] [address] [place] [address] [id number] Myra William Self - patient is the insured Medical (General) History Medical History History ICD Code anxiety reflux chicken pox measles
--- OUTSIDE RECORDS SUMMARY | 2025-03-14 06:46 | XMS_ITS | Patient Health Record ---
Author Organization [facility] Address [address] [place] [address] Care Team Providers Care Die Casting Supervisor Name Role Phone Ni Garduno MD Primary Care Provider Unavaila Billy Mg Jr Unavailable Allergies Allergen (clinical drug ingredient) Drug/Non Drug Allergy documented on EMR Reaction Allergy Type Onset Date Status amoxicillin Amoxicillin Unknown Drug Allergy Act irasema Reason For Referral Referring Provider First Name Ni Referring Provider Last Name Shaan Referring Provider Speciality Internal M edicine Referred Organization [facility] Referred Provider Billy Cobos Jr Referred Address [address] [place] [address],[address],[place], [place],[address], Referred Provider Specialty Gastroentero logy General Notes Kylie Andrade 2024 08:27:32 AM >requested [place] pilgrim referral from josh for visit with Dr. Falcon on 03-24-25 Referral Priority Routine Medications Medication SIG (Take, Route, Frequency, Duration) Notes Start Date End Date Status Omeprazole 20 take one capsule by mouth once a day Orally Once a day for 90 days Active MiraLax (colon prep) 8.3 ounce ((238) grams mixed with Gatorade or Crystal Light orally begin at 5:00 p.m. 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 confirmed Problem 130038437 Irritable bowel syndrome with diarrhea (K58.0) Active confirmed Problem 008581924 Gastroesophageal reflux disease without esophagitis (K21.9) Active confirmed Problem 06060291 Rectal urgency (R15.2) Active confirmed Problem 204744848 Screening for co jossy cancer (Z12.11) Active confirmed Vital Signs Temperature 97.1 degrees Fahrenheit 03/25/2024 Blood pressure diastolic 00 mm Hg 03/25/2024 Height 61.5 in 03/25/2024 Blood pressure systolic 000 mm Hg 03/25/2024 Weight 190 lb 4 oz lbs 03/25/2024 BMI 35.36 kg/m2 03/25/2024 Encounters Encounter Location Date Provider Diagnosis [facility] [address] [place] [address] 03/25/2024 Billy Cobos Jr Irritable bowel syndrome [...] 06/21/2023 Next Appt Details Provider Name:Billy roe , 03/24/2025 09:20:00 AM, [address] [place] [address], [facility] [address], [place], [address], Insurance Providers Payer Name Payer Address Payer Phone Subscriber Number Group Number Insured Name Patient Relationship to Insured Coverage Start Date Coverage End Date [employer] [address] [place] [phone] [id number] DILIP ROBB Self - patient is the [...]
[2025-03-14 10:05] LABS: MANUAL DIFF FLAG NO
[2025-03-14 10:23] LABS: Hematocrit 35.0 % (37.0-47.0); Hemoglobin 11.4 g/dl (12.0-16.0); Imm Gran Abs Auto 0.01 X10*3/uL (0.00-0.03); Imm Gran Pct Auto 0.4 % (0.0-0.4); Lymphocytes Absolute Auto 1.1 X10*3/uL (1.2-4.9); Mean Corpuscular HGB Conc 32.6 g/dl (31.0-35.0); Mean Corpuscular Hemoglobin 32.3 pg (27.0-33.0); Mean Corpuscular Volume 99.2 fL (80.0-98.0); NRBC Abs Auto 0.000 X10*3/uL (0.0-0.012); NRBC Pct Auto 0.0 /100WBC (0.0-0.2); Red Blood Count 3.53 X10*6/uL (4.20-5.50); White Blood Count 2.8 X10*3/uL (4.8-10.8)
[2025-03-14 10:57] LABS: Alanine Aminotransferase 83 U/L (0-31); Albumin Level 3.2 g/dL (3.5-5.0); Alkaline Phosphatase 185 U/L (39-117); Anion Gap 13 (12-20); Aspartate Amino Transferase 102 U/L (5-31); Blood Urea Nitrogen 14 mg/dL (9-16); Calcium 8.8 mg/dL (8.4-10.2); Carbon Dioxide 24 mmol/L (22-29); Chloride 108 mmol/L (96-108); Estimated Glomerular Filt Rate 53; Magnesium 1.3 mg/dL (1.6-2.6); Potassium 4.3 mmol/L (3.3-5.1); Sodium 141 mmol/L (135-145); Total Protein 5.8 g/dL (6.5-8.0)
[2025-03-14 11:05] LABS: Platelet Count 115 X10*3/uL (160-400)
== END 2025-03-14 06:45 | disposition home or self-care (01) ==
LOC: HO.HMGCLDS 06:44
PROVIDERS: PCP Internal Medicine; Visit Provider Internal Medicine
DX: E83.42 Hypomagnesemia (principal); E87.6 Hypokalemia
CPT/HCPCS: 36415; 80053; 82306; 83735; 84425; 85025

== ENCOUNTER 2025-03-19 11:29 | Outpatient (AMB) | payer OTHER, SELFPAY ==
[2025-03-19 11:38] VITALS: BP 100/66; PULSE 73; RESP 18; TEMP 36.6; O2SAT 97; BMI 30.1
--- NOTE | 2025-03-19 11:38 | MHC.PC.OV ---
Vital Signs 03/19/25 11:38 Height 5 ft 1.5 in Weight 162 lb BMI 30.1 BP 100/66 Blood Pressure Location Lt brachial Position Sitting Respiration 18 Pulse 73 Pulse Source Pulse Oximeter Temp 97.8 F Temp Source Oral Pulse Oximetry (%) 97 Oxygen Delivery Method Room Air Intake Visit Reasons: 1 month f/up Allergies amoxicillin (AMOXICILLIN) Allergy (Intermediate, Verified 03/19/25 11:38) HIVES latex Allergy (Intermediate, Verified 03/19/25 11:38) Redness of Skin, irritation Medication List - Last Reconciled 03/19/25 by Ni Garduno MD alprazolam 0.25 mg (1/2 x 0.5 mg) PO BEDTIME PRN atorvastatin 20 mg PO DAILY budesonide-formoterol 80-4.5 mcg/actuation (Symbicort) 2 puffs PO BID bupropion HCl XL (Wellbutrin XL) 150 mg PO DAILY cholecalciferol (vitamin D3) 125 mcg PO DAILY citalopram 40 mg PO DAILY docusate sodium 100 mg PO BID furosemide 20 mg PO DAILY latanoprost 0.005% 1 drp ophthalmic (eye) BEDTIME lidocaine 5% 2 patches topical DAILY PRN losartan 100 mg PO DAILY magnesium oxide 400 mg PO BID omeprazole 20 mg PO DAILY potassium chloride ER 30 mEq (3 x 10 mEq) PO DAILY thiamine HCl (vitamin B1) 100 mg PO DAILY timolol maleate 0.5% 1 drp ophthalmic (eye) DAILY@0630 Tobacco use date assessed: 03/19/25 Last assessed Fall Risk: 03/19/25 Dental Screening Dental Screen Date: 11/01/24 HPI 1 month f/up HPI Details Patient presents for the follow-up on hypertension chronic anxiety and depression hyperlipidemia mild asthma. Lower extremity swelling has improved on 20 mg of furosemide. Her has been going to day program and patient has been less stress out. She has been cutting down on alcohol. She reports drinking 2 glasses of wine a week [facility] Medical History Cerumen impaction Rib pain on left side HLD (hyperlipidemia) Glaucoma Elevated LFTs Osteoarthritis of hips, bilateral Nevus Annual physical exam Postmenopausal Knee pain, chronic Ramon's esophagus Plantar fasciitis of left foot Hypercholesterolemia Anxiety HTN (hypertension) Surgical History History of total left hip arthroplasty Hx of eye surgery H/O colonoscopy History of esophagogastroduodenoscopy (EGD) Family History Father Bladder cancer Mother No problems noted. Maternal Grandmother COPD (chronic obstructive pulmonary disease) Myocardial infarction Maternal Grandfather No problems noted. Paternal Grandfather No problems noted. Paternal Grandmother No problems noted. 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 Cognitive needs: No Hearing needs: Yes Vision needs: Yes Questionnaire Thrive Questionnaire Date Thrive assessed: 10/29/24 I am a: Patient What is your living situation today?: I have a steady place to live Within the past 12 months, did the food you bought not last and you didn't have the money to get more?: Never true Within the past 12 months, did you worry whether your food would run out before you got money to buy more?: Never true Do you have trouble paying for medicines?: No Do you have trouble getting transportation to medical appointments?: No Do you have trouble paying your heating and electricity bill?: No Do you have trouble taking care of your child, family member or friend?: No Do you have trouble with day-to-day activities such as bathing, preparing meals, shopping, managing finances, etc.?: No Are you currently unemployed and looking for a job?: No Are you interested in more education?: No Please select the resources that you would like help with: None Currently or been in a relationship where the following occur: No concerns reported THRIVE Score: 0 LU-7 AMB Questionnaire LU-7 Date LU - 7 assessed: 11/01/24 Source: Developed by Drs. Mason Borges, Kathrin Jimenes, Juan Ibarra and colleagues, with an educational meli from [email or web address]. Review of Systems Const All systems reviewed & are unremarkable except as noted in HPI and below Eyes Reports no additional complaints ENT Reports no additional complaints Card Reports no additional complaints Resp Reports no additional complaints GI Reports no additional complaints Reports no additional complaints Physical exam (Primary Care) Vital Signs: Last Vital Signs Temp 97.8 F 03/19/25 11:38 Pulse 73 03/19/25 11:38 Resp 18 03/19/25 11:38 BP 100/66 03/19/25 11:38 Pulse Ox 97 03/19/25 11:38 Oxygen Delivery Method Room Air 03/19/25 11:38 BMI result Body Mass Index 30.1 Tobacco/Smoking Status: Tobacco use Status Tobacco use date assessed 03/19/25 03/19/25 11:44 Patient Tobacco Use Status Never used Tobacco 03/19/25 11:44 e-Cigarette/Vaping Use Never Used 03/19/25 11:44 Thrive Assessment: Date of Thrive Assessment Date Thrive assessed 10/29/24 03/19/25 11:44 Currently or been in a relationship where the following occur: No concerns reported Const General: no acute distress HENMT Face and sinus: Yes normal facial exam Neck Neck: Yes supple Resp Effort & Inspection: normal respiratory effort Auscultation: clear to auscultation bilaterally Cardio Rhythm: regular rhythm Heart sounds: S1 normal heart sound present and S2 normal heart sound present GI Inspection: Yes normal to inspection Palpation (GI): Soft to palpation Percussion: Yes normal to percussion Auscultation: normal bowel sounds Extrem Other: 1+ pitting edema bilaterally Coding Level of Care Code Est Pt Level 4 (26863) Diagnoses HTN (hypertension) I10 Hypercholesterolemia E78.00 Anxiety F41.9 Alcohol abuse F10.10 Elevated LFTs R79.89 Assessment & Plan Assessment & Plan (1) HTN (hypertension): Code(s): I10 - Essential (primary) hypertension Category: Medical Plan: Continue losartan (2) Hypercholesterolemia: Code(s): E78.00 - Pure hypercholesterolemia, unspecified Category: Medical Plan: Continue statin (3) Anxiety: Code(s): F41.9 - Anxiety disorder, unspecified Category: Medical Plan: Continue current medications (4) Alcohol abuse: Code(s): F10.10 - Alcohol abuse, uncomplicated Category: Social Hx Plan: Cutting down on alcohol and counseling recommended (5) Elevated LFTs: Comment: US fatty liver , hepatocellular disease 02/17, excessive ETOH use Code(s): R79.89 - Other specified abnormal findings of blood chemistry Category: Medical Plan: Monitor LFTs Orders: Orders Comprehensive [place]. Panel Fast 2 Months E78.00 - Pure hypercholesterolemia, unspecified, I10 - Essential (primary) hypertension, R60.0 - Localized edema Complete Blood Count Auto Diff 2 Months E78.00 - Pure hypercholesterolemia, unspecified, I10 - Essential (primary) hypertension, R60.0 - Localized edema IRON PROFILE 2 Months E78.00 - Pure hypercholesterolemia, unspecified, I10 - Essential (primary) hypertension, R60.0 - Localized edema Vitamin B12 and Folate 2 Months E78.00 - Pure hypercholesterolemia, unspecified, I10 - Essential (primary) hypertension, R60.0 - Localized edema TSH reflex Free T4 2 Months E78.00 - Pure hypercholesterolemia, unspecified, I10 - Essential (primary) hypertension, R60.0 - Localized edema Ferritin 2 Months R79.89 - Other specified abnormal findings of blood chemistry
--- OUTSIDE RECORDS SUMMARY | 2025-03-19 12:28 | XMS_ITS | Patient Health Record ---
Author Organization [facility] Address [address] [place] [address] Care Team Providers Care Nursing Aide Name Role Phone Ni Garduno MD Primary Care Provider Unavaila Billy Mg Jr Unavailable Allergies Allergen (clinical drug ingredient) Drug/Non Drug Allergy documented on EMR Reaction Allergy Type Onset Date Status amoxicillin Amoxicillin Unknown Drug Allergy Act irasema Reason For Referral Referring Provider First Name Ni Referring Provider Last Name Shaan Referring Provider Speciality Internal M edicine Referred Organization [facility] Referred Provider Billy Cobos Jr Referred Address [address] [place] [address],[address],[place], [place],[address], Referred Provider Specialty Gastroentero logy General Notes Kylie Andrade 2024 08:27:32 AM >requested [place] pilgrim referral from josh for visit with Dr. 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 confirmed Problem 308413438 Irritable bowel syndrome with diarrhea (K58.0) Active confirmed Problem 431061536 Gastroesophageal reflux disease without esophagitis (K21.9) Active confirmed Problem 14776357 Rectal urgency (R15.2) Active confirmed Problem 280026080 Screening for co jossy cancer (Z12.11) Active confirmed Vital Signs Temperature 97.1 degrees Fahrenheit 03/25/2024 Blood pressure diastolic 00 mm Hg 03/25/2024 Height 61.5 in 03/25/2024 Blood pressure systolic 000 mm Hg 03/25/2024 Weight 190 lb 4 oz lbs 03/25/2024 BMI 35.36 kg/m2 03/25/2024 Encounters Encounter Location Date Provider Diagnosis [facility] [address] [place] [address] 03/25/2024 Billy Cobos Jr Irritable bowel syndrome [...] Provider Name:Billy roe , 03/24/2025 09:20:00 AM, [address] [place] [address], [facility] [address], [place], [address], Insurance Providers Payer Name Payer Address Payer Phone Subscriber Number Group Number Insured Name Patient Relationship to Insured Coverage Start Date Coverage End Date [employer] [address] [place] [phone] [id number] DILPI RBOB Self - patient is the insured Medical [...]
--- OUTSIDE RECORDS SUMMARY | 2025-03-19 12:28 | XMS_ITS | Patient Health Record ---
Author Organization [facility] Address [address] [facility] [place] [address] Care Team Providers Care Matzo Forming Machine Operator Name Role Phone Rell Baumann MD Primary Care Provider Terence Thomas [phone] Allergies Allergen (clinical drug ingredient) Drug/Non Drug [...] a day; Duration: 30 day(s) Active Calcium 1147-4567 MG-UNIT 1 tablet with a meal Orally [...] Status W/U Status Risk Notes Problem Bursitis (21306882) Bursitis (727.3) Active confirmed Problem Congenital pes planus (52106085) Flat Foot, Congenital (754.61) Active confirmed Problem Myositis (17297041) Myositis (729.1) Active confirmed Problem Pain in limb (55805193) Pain in Limb (729.5) Active confirmed Problem Plantar fasciitis (470628531) Plantar Fasciitis (728.71) Active confirmed Plan Of Treatment Pending Test Test Name Order Date ,[id number] TENDON SHEATH/LIGAMENT 0 01/23/2013,[id number] TENDON SHEATH/LIGAMENT 0 03/11/2013 Insurance Providers Payer Name Payer Address Payer Phone Subscriber Number Group Number Insured Name Patient Relationship to Insured Coverage Start Date Coverage End Date [facility] [address] [place] [id number] Myra William Self - patient is the insured Medical (General) History Medical History History ICD Code anxiety reflux chicken pox measles
== END 2025-03-19 12:05 | disposition home or self-care (01) ==
LOC: HO.HMCC 11:30
PROVIDERS: PCP Internal Medicine; Visit Provider Internal Medicine
DX: I10 Essential (primary) hypertension (principal); E78.00 Pure hypercholesterolemia, unspecified; F41.9 Anxiety disorder, unspecified; F10.10 Alcohol abuse, uncomplicated; R79.89 Other specified abnormal findings of blood chemistry

== ENCOUNTER 2025-05-02 07:22 | Day surgery (SDC) | payer OTHER, SELFPAY ==
--- OUTSIDE RECORDS SUMMARY | 2025-03-24 12:08 | XMS_ITS | Patient Health Record ---
[facility] Address [address] [facility] [place] [address] Care Team Providers Care Senior Pensions Administrator Name Role Phone Rell Baumann MD Primary Care Provider Terence Thomas [phone] Allergies Allergen (clinical drug ingredient) Drug/Non Drug [...] a day; Duration: 30 day(s) Active Calcium 5892-4637 MG-UNIT 1 tablet with a meal Orally [...] Status W/U Status Risk Notes Problem Bursitis (51392261) Bursitis (727.3) Active confirmed Problem Congenital pes planus (60082416) Flat Foot, Congenital (754.61) Active confirmed Problem Myositis (68003373) Myositis (729.1) Active confirmed Problem Pain in limb (38579571) Pain in Limb (729.5) Active confirmed Problem Plantar fasciitis (547241074) Plantar Fasciitis (728.71) Active confirmed Plan Of Treatment Pending Test Test Name Order Date ,[id number] TENDON SHEATH/LIGAMENT 0 01/23/2013,[id number] TENDON SHEATH/LIGAMENT 0 03/11/2013 Insurance Providers Payer Name Payer Address Payer Phone Subscriber Number Group Number Insured Name Patient Relationship to Insured Coverage Start Date Coverage End Date [facility] [address] [place] [address] [id number] Myra William Self - patient is the insured Medical (General) History Medical History History ICD Code anxiety reflux chicken pox measles
--- OUTSIDE RECORDS SUMMARY | 2025-03-24 12:08 | XMS_ITS | Patient Health Record ---
Author Organization [facility] Address [address] [place] [address] Care Team Providers Care Furnishings Conservator Name Role Phone Ni Garduno MD Primary Care Provider Unavaila Billy Mg Jr Unavailable Allergies Allergen (clinical drug ingredient) Drug/Non Drug Allergy documented on EMR Reaction Allergy Type Onset Date Status amoxicillin Amoxicillin Unknown Drug Allergy Act irasema Reason For Referral Referring Provider First Name Ni Referring Provider Last Name Shaan Referring Provider Speciality Internal M edicine Referred Organization [facility] Referred Provider Billy Cobos Jr Referred Address [address] [place] [address],[address],[place], [place],[address], Referred Provider Specialty Gastroentero logy General Notes Kylie Andrade 2024 08:27:32 AM >requested [facility] referral from josh for visit with Dr. Falcon on 03-24-25 Referral Priority Routine Medications Medication SIG (Take, Route, Frequency, Duration) Notes Start Date End Date Status Potassium & Magnesium Aspartat 250-250 MG 1 capsule with a meal Orally Once a day for 30 day(s) Active Losartan Potassium 50 MG 1 tablet Orally Once a day for 30 day(s) Active Latanoprost Active Citalopram Hydrobromide Active Timolol Maleate Acti ve MiraLax (colon prep) 8.3 ounce ((238) grams mixed with Gatorade or Crystal Light orally begin at 5:00 p.m. the day before the procedure for 1 day 06/21/2023 Active ALPRAZolam 0.25 MG TAKE 1 TABLET BY GRACIE TH 3 TIMES A DAY NEEDED Oral prn Not-Taking Calcium 600 MG 1 tablet with meals Orally Twice a day Not-Taking Omeprazole 20 MG 1 capsule 1/2 to 1 h our before morning meal Orally Once a day 03/24/2025 Active Immunizations Vaccine Route Administration Date Status Comme nts Influenza Unknown 05/28/2019 Administered Influenza Unknown 05/28/2021 Administered Influenza Unknown 06/15/2022 Administered Influenza Unknown 06/07/2023 Administered Influenza Unknown 06/18/2024 Administered Social History Alcohol Screen Question Answer [...] of colonic polyps (Z86.010) Active confirmed Problem 074042195 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 confirmed Problem 893126746 Irritable bowel syndrome with diarrhea (K58.0) Active confirmed Problem 716066112 Gastroesophageal reflux disease without esophagitis (K21.9) Active confirmed Problem 12296720 Rectal urgency (R15.2) Active confirmed Problem 626044729 Screening for co jossy cancer (Z12.11) Active confirmed Vital Signs Temperature 97.3 degrees Fahrenheit 03/24/2025 Blood pressure diastolic 01 mm Hg 03/24/2025 Height 61.5 in 03/24/2025 Blood pressure systolic 001 mm Hg 03/24/2025 Weight 166.2 lbs 03/24/2025 BMI 30.89 kg/m2 03/24/2025 Encounters Encounter Location Date Provider Diagnosis [facility] [address] [place] [phone] 03/24/2025 Billy Cobos Jr Ramon's esophagus without dysplasia K22.70 ; Irritable bowel syndrome with diarrhea K58.0 and Screening for colon cancer Z12.11 [facility] [address] [place] [address] [place] [address] 03/25/2024 Billy Vincentanna Willingham Irritable bowel syndrome with diarrhea K58.0 ; Ramon's esophagus without dysplasia K22.70 and Screening for colon cancer Z12.11 Assessments Encounter Date Diagnosis (ICD Code) Assessment Notes Treatment Notes Treatment Clinical Notes Section Notes 03/24/2025 Ramon's esophagus without dysplasia (ICD-10 - K22.70) We discussed Ramon's esophagus today. She is due for follow-up endoscopy and this will be arranged. She understands risks and benefits and agrees to proceed. She will continue omeprazole. For her IBS symptoms she will continue treatment with Imodium. She finds this very helpful. She has stress at home regarding her . We discussed stress and IBS today. She is up-to-date on colorectal cancer screening. 03/25/2024 Ramon's esophagus without dysplasia [...] She is up-to-date on colon cancer screening. 03/24/2025 Irritable bowel syndrome with diarrhea (ICD-10 - K58.0) We discussed Ramon's esophagus today. She is due for follow-up endoscopy and this will be arranged. She understands risks and benefits and agrees to proceed. She will continue omeprazole. For her IBS symptoms she will continue treatment with Imodium. She finds this very helpful. She has stress at home regarding her . We discussed stress and IBS today. She is up-to-date on colorectal cancer screening. 03/25/2024 Screening for colon cancer (ICD-10 - Z12.11) We discussed the irritable bowel syndrome today. We discussed treatment with low-dose Imodium taken at night to help prevent problems. Reflux symptoms are under good control. She will continue a proton pump inhibitor. Followup will be in 12 months. She is up-to-date on colon cancer screening. 03/24/2025 Screening for colon cancer (ICD-10 - Z12.11) We discussed Ramon's esophagus today. She is due for follow-up endoscopy and this will be arranged. She understands risks and benefits and agrees to proceed. She will continue omeprazole. For her IBS symptoms she will continue treatment with Imodium. She finds this very helpful. She has stress at home regarding her . We discussed stress and IBS today. She is up-to-date on colorectal cancer screening. Plan Of Treatment Future Test Test Name Order Date UPPER GI ENDOSCOPY 03/28/2014 COLONOSCOPY 05/04/2018 UPPER GI ENDOSCOPY 01/29/2020 COLONOSCOPY 06/21/2023 UPPER GI ENDOSCOPY 03/24/2025 Next Appt Details Provider Name:Billy Mani roe , 05/02/2025 10:10:00 AM, [address] [place] [address] , [place], [place], [phone], Insurance Providers Payer Name Payer Address Payer Phone Subscriber Number Group Number Insured Name Patient Relationship to Insured Coverage Start Date Coverage End Date [employer] [address] [place] [phone] [id number] DILIP ROBB Self - patient is the insured Medical (General) History Medical History History ICD Code Colon polyps, colonoscopy , multiple adenomas, three-year followup 08/22 Anxiety Tubular adenoma w/focal high-grade dyspl alesha -removed 07/2003 Ramon's esophagus, EGD 01/27 12/15, biopsies negative for intestinal metaplasia, five-year followup 02/19 Hypertension Hyperlipidemia Osteoarthritis Surgical History Surgery Date(Month/Year) hip replacement left Bilateral cataract surgery
[2025-04-30 11:18] VITALS: BMI 30.9
--- NOTE | 2025-05-01 08:46 | HO.ANESPROP2 ---
Documented by User: Michelle Chin NP 05/01/25 08:55 HPI - Anesthesia Eval Consult details Narrative: 70yo F for Upper Endoscopy ETOH abuse: cutting back per PCP Last labs abnormal with critical Mg. Will repeat DOS PMFSH Active Problems Active Problems: All Active Problems Lower extremity edema (Acute) Acute renal insufficiency (Acute) Diarrhea (Acute) Heart failure with preserved ejection fraction (Acute) Lumbar degenerative disc disease (Acute) Urine incontinence (Acute) Bilateral edema of lower extremity (Acute) Vitamin D deficiency (Acute) Abnormal echocardiogram (Acute) Hypomagnesemia (Acute) Hypokalemia (Acute) Alcohol abuse (Acute) Asthma (Acute) SAINZ (dyspnea on exertion) (Acute) Hyperglycemia (Acute) Status post total hip replacement, left (Acute) Osteoarthritis of left hip (Acute) Cerumen impaction (Acute) Anxiety (Acute) Rib pain on left side (Acute) Hypercholesterolemia (Acute) HTN (hypertension) (Acute) Elevated LFTs (Acute) Osteoarthritis of hips, bilateral (Acute) Nevus (Acute) Annual physical exam (Acute) Postmenopausal (Acute) Knee pain, chronic (Acute) Past Medical History Medical History IBS (irritable bowel syndrome) Cerumen impaction Rib pain on left side HLD (hyperlipidemia) Glaucoma Elevated LFTs Osteoarthritis of hips, bilateral Nevus Annual physical exam Postmenopausal Knee pain, chronic Ramon's esophagus Plantar fasciitis of left foot Hypercholesterolemia Anxiety HTN (hypertension) Family History Family History Father Bladder cancer Mother No problems noted. Maternal Grandmother COPD (chronic obstructive pulmonary disease) Myocardial infarction Maternal Grandfather No problems noted. Paternal Grandfather No problems noted. Paternal Grandmother No problems noted. Brother Substance use disorder Family history of problems with anesthesia: No Surgical History Surgical History History of total left hip arthroplasty Hx of eye surgery H/O colonoscopy (07/2023) History of esophagogastroduodenoscopy (EGD) (02/19/20) History of Problems with Anesthesia: No Social History Social History Household Members: Spouse Household Members Other:: Housing: House Are you a primary health care social worker to a significant other at home: No Do you presently have visiting nurse or other home services: No Alcohol intake: current Alcohol intake frequency: holidays/special occasions only Alcohol type: wine Comment: bath mat has rubber backing Patient Tobacco Use Status: Never used Tobacco e-Cigarette/Vaping Use: Never Used Second Hand Smoke Exposure: No service: No Current occupational status: employed 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 Cognitive needs: No Hearing needs: Yes Vision needs: Yes Meds Allergies Allergy/AdvReac Type Severity Reaction Status Date / Time amoxicillin (AMOXICILLIN) Allergy Intermediate HIVES Verified 03/19/25 11:38 latex Allergy Intermediate Redness of Verified 03/19/25 11:38 Skin, irritation Home Medications ?Medication ?Instructions ?Recorded ?Confirmed ?Last Taken ?Type latanoprost 0.005 % eye drops 1 drp ophthalmic (eye) BEDTIME 12/30/20 04/30/25 Unknown History timolol maleate 0.5 % eye drops 1 drp ophthalmic (eye) DAILY@0630 12/30/20 03/19/25 05/02/25 History docusate sodium 100 mg capsule 100 mg PO BID 02/17/25 03/19/25 Unknown History lidocaine 5 % topical patch 2 patch topical DAILY PRN 02/17/25 03/19/25 Unknown History Imodium 04/30/25 04/30/25 Unknown History Exam Height,Weight and Vital Signs: Height 5 ft 1.5 in Weight 75.353 kg Pertinent Lab Results Pertinent Lab Results: Laboratory Tests 03/14/25 06:55 Sodium 141 Potassium 4.3 Chloride 108 Carbon Dioxide 24 Anion Gap 13 BUN 14 Creatinine 1.03 Calcium 8.8 Magnesium 1.3 L* Total Bilirubin 1.1 H AST 102 H ALT 83 H Alkaline Phosphatase 185 H Total Protein 5.8 L Albumin 3.2 L Laboratory Tests 03/14/25 06:53 WBC 2.8 L Hgb 11.4 L Hct 35.0 L Plt Count 115 L D Narrative Narrative: EKG 01/2025 Vent. Rate : 86 BPM Atrial Rate : 86 BPM P-R Int : 150 ms QRS Dur : 70 ms QT Int : 420 ms P-R-T Axes : 54 -15 29 degrees QTcB Int : 502 ms Normal sinus rhythm Inferior infarct , age undetermined Abnormal ECG When compared with ECG of 26-Feb-2021 09:16, Premature ventricular complexes are no longer Present Inverted T waves have replaced nonspecific T wave abnormality in Anterior leads QT has lengthened Assessment and Plan Final Anesthetic Review Family History of Problems with Anesthesia: No History of Problems with Anesthesia: No Documented by User: Vida Raymundo MD 05/02/25 09:05 [facility] Past Medical History Medical History IBS (irritable bowel syndrome) Cerumen impaction Rib pain on left side HLD (hyperlipidemia) Glaucoma Elevated LFTs Osteoarthritis of hips, bilateral Nevus Annual physical exam Postmenopausal Knee pain, chronic Ramon's esophagus Plantar fasciitis of left foot Hypercholesterolemia Anxiety HTN (hypertension) Family History Family History Father Bladder cancer Mother No problems noted. Maternal Grandmother COPD (chronic obstructive pulmonary disease) Myocardial infarction Maternal Grandfather No problems noted. Paternal Grandfather No problems noted. Paternal Grandmother No problems noted. Brother Substance use disorder Surgical History Surgical History History of total left hip arthroplasty Hx of eye surgery H/O colonoscopy (07/2023) History of esophagogastroduodenoscopy (EGD) (02/19/20) Social History Social History Household Members: Spouse Household Members Other:: Housing: House Are you a primary health care social worker to a significant other at home: No Do you presently have visiting nurse or other home services: No Alcohol intake: current Alcohol intake frequency: holidays/special occasions only Alcohol type: wine Comment: bath mat has rubber backing Patient Tobacco Use Status: Never used Tobacco e-Cigarette/Vaping Use: Never Used Second Hand Smoke Exposure: No service: No Current occupational status: employed 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 Cognitive needs: No Hearing needs: Yes Vision needs: Yes Meds Allergies Allergy/AdvReac Type Severity Reaction Status Date / Time amoxicillin (AMOXICILLIN) Allergy Intermediate HIVES Verified 03/19/25 11:38 latex Allergy Intermediate Redness of Verified 03/19/25 11:38 Skin, irritation Home Medications ?Medication ?Instructions ?Recorded ?Confirmed ?Last Taken ?Type latanoprost 0.005 % eye drops 1 drp ophthalmic (eye) BEDTIME 12/30/20 04/30/25 Unknown History timolol maleate 0.5 % eye drops 1 drp ophthalmic (eye) DAILY@0630 12/30/20 03/19/25 05/02/25 History docusate sodium 100 mg capsule 100 mg PO BID 02/17/25 03/19/25 Unknown History lidocaine 5 % topical patch 2 patch topical DAILY PRN 02/17/25 03/19/25 Unknown History Imodium 04/30/25 04/30/25 Unknown History Exam Airway Mallampati Class: II TM Dist: >3cm Neck ROM: Full Loose/Missing/Broken Teeth: No Heart: RRR Lungs: CTA Assessment and Plan Assessment Anesthesia Assessment: Anesthesia Plan Discussed and Chart Reviewed Final Anesthetic Review NPO: Yes ASA Class: II Final Preanesthetic Review: Meds/Allgs Chart Reviewed, Consent Obtained/Reviewed and Anes Risks/Benef Reviewed Patient Risk: Low Procedure Risk: Intermediate Anesthetic Plan Anesthetic Plan: MAC: Disposition: Standard PACU
[2025-05-02 07:56] VITALS: BMI 30.7
[2025-05-02 08:04] VITALS: BP 127/67; PULSE 65; RESP 16; TEMP 36.2; O2SAT 95
[2025-05-02 08:08] LABS: Hematocrit 38.9 % (37.0-47.0); Hemoglobin 13.4 g/dl (12.0-16.0); Mean Corpuscular HGB Conc 34.4 g/dl (31.0-35.0); Mean Corpuscular Hemoglobin 33.3 pg (27.0-33.0); Mean Corpuscular Volume 96.5 fL (80.0-98.0); NRBC Abs Auto 0.000 X10*3/uL (0.0-0.012); NRBC Pct Auto 0.0 /100WBC (0.0-0.2); Platelet Count 141 X10*3/uL (160-400); Red Blood Count 4.03 X10*6/uL (4.20-5.50); White Blood Count 5.1 X10*3/uL (4.8-10.8)
[2025-05-02 08:21] LABS: Magnesium 1.5 mg/dL (1.6-2.6)
[2025-05-02] MEDS: Lactated Ringers 1,000 ML 100 ML IVCONT (08:21)
--- NOTE | 2025-05-02 09:03 | MHC.SHP ---
Pre-Procedural Eval Section A - 24 Hr Update-Section A only Date of Service: 05/02/25 Section B - Complete if H&P > 30 days Chief Complaint: Ramon's esophagus without dysplasia Details of Present Illness: see H&P no changes Relevant Family History (Specify if Yes): No Relevant Social History: None Present Medications: see Short Stay Collaborative assessment Medical History: No relevant PMH History of Previous Operations: No relevant previous surgery Allergies: Allergies Allergy/AdvReac Type Severity Reaction Status Date / Time amoxicillin (AMOXICILLIN) Allergy Intermediate HIVES Verified 03/19/25 11:38 latex Allergy Intermediate Redness of Verified 03/19/25 11:38 Skin, irritation Review of Systems Sugical H&P ROS: Negative: Constitution, Cardiovascular, Respiratory, Neurological, Psychiatric, Hem-Onc, Allergic/Immunologic, Gastrointestinal, Genitourinary, Musculoskeletal, Integumentary, Endocrine and Eyes/Ears/Nose/Throat Exam Surgical H&P Exam: Normal: HEENT, Normal: Heart, Normal: Lungs, Normal: Extremities, Normal: Abdomen, Normal: Skin and Normal: Neurological Plan Diagnosis/Plan: Unchanged I have reviewed the history and physical and performed a pertinent physical examination on my patient. No changes have occurred unless specified. Time Spent With Patient Time: Total time managing care of this patient today ____ minutes.
[2025-05-02 09:24] VITALS: BP 97/56; PULSE 69; RESP 16; TEMP 36.4; O2SAT 99
[2025-05-02 09:40] VITALS: BP 128/75; PULSE 71; RESP 18; TEMP 36.9; O2SAT 96
--- NOTE | 2025-05-02 10:54 | OP_ITS ---
DATE OF SERVICE: 05/02/2025 SURGEON: Billy Cobos MD INDICATIONS: Ramon esophagus. PREOPERATIVE DIAGNOSIS: POSTOPERATIVE DIAGNOSIS: PROCEDURE PERFORMED: Upper endoscopy with biopsy. ESTIMATED BLOOD LOSS: COMPLICATIONS: ANESTHESIA: Monitored anesthesia care. ASSISTANTS: SPECIMENS: DESCRIPTION OF PROCEDURE: A history and physical was performed. The risks and benefits of the procedure were explained to the patient. Informed consent was obtained. The patient was placed in a left lateral decubitus position. The Olympus video gastroscope was introduced into the esophagus, stomach, and duodenum. Examination was performed. The scope was removed. She tolerated the procedure well and was returned to the recovery area in stable condition. FINDINGS: Esophagus: The esophagus showed an irregular EG junction. This was biopsied. There were no raised lesions or ulcerated areas. Stomach: The stomach showed a 5 cm hiatal hernia. Multiple benign-appearing gastric polyps were present. There was some associated gastritis at the level of the hiatal hernia, but no ulcer was identified. Duodenum: The bulb and 2nd portion were normal. IMPRESSION: 1. Hiatal hernia. 2. Ramon esophagus. RECOMMENDATION: Follow up the biopsy results, which were obtained from the EG junction. MD SAEED Weiss/BRITTANIL / [id number]
== END 2025-05-02 10:06 | disposition home or self-care (01) ==
PROVIDERS: Nurse Practitioner; PCP Internal Medicine; Visit Provider Internal Medicine Gastroenterology
PROC: 0DJ08ZZ Inspection of Upper Intestinal Tract, Via Natural or Artificial Opening Endoscopic (ICD-10-PCS; CPT 43235; principal; 2025-05-02 09:20)
DX: K22.70 Barrett's esophagus without dysplasia (principal); K44.9 Diaphragmatic hernia without obstruction or gangrene; K31.7 Polyp of stomach and duodenum; K29.70 Gastritis, unspecified, without bleeding; K21.9 Gastro-esophageal reflux disease without esophagitis; I10 Essential (primary) hypertension; E78.5 Hyperlipidemia, unspecified; Z79.899 Other long term (current) drug therapy; Z88.1 Allergy status to other antibiotic agents; Z91.040 Latex allergy status; Z98.890 Other specified postprocedural states
CPT/HCPCS: 43239; 36415; 83735; 85027; 88305; 88313; J2003; J2704

== ENCOUNTER 2025-05-23 06:25 | Outpatient (REF) | payer OTHER, SELFPAY ==
--- OUTSIDE RECORDS SUMMARY | 2025-05-02 05:20 | XMS_ITS ---
Author Organization [facility] Address [address] [place] [phone] Care Team Providers Care Laborer Chemical Processing Name Role Phone Shaan VENTURA, Ni Primary Care Provider UnavailBilly Vazquez Jr [phone] REASON FOR VISIT Ramon's Esophagus Encounters Encounter Location Date Provider Diagnosis [facility] [address] [place] [phone] 05/02/2025 Billy Cobos Jr Plan Of Treatment No Information Progress Notes * MERLINEDILIP KAN:[birth year] (70 yo F)Acc No.[id number]:05/02/2025 EGD/MAC Patient: Abril REVELES DILIP JiAbi Provider: Stephanie Cobos MD :1955 A ge:70 Y S ex:Female Date:05/02/2025 Address:[address] [place], [place] [phone] Pcp:Ni Garduno MD Subjective: * Chief Complaints: [...] 05/02/2025 Generated for Heather rahman/Justo/eTransmitting on: 0 05/23/2025 06:28 AM EDT
--- OUTSIDE RECORDS SUMMARY | 2025-05-23 06:29 | XMS_ITS | Patient Health Record ---
Author Organization [facility] Address [address] [facility] [place] [address] Care Team Providers Care Inspector General Name Role Phone Rell Baumann MD Primary Care Provider Terence Thomas [phone] Allergies Allergen (clinical drug ingredient) Drug/Non Drug [...] a day; Duration: 30 day(s) Active Calcium 1948-5715 MG-UNIT 1 tablet with a meal Orally [...] Status W/U Status Risk Notes Problem Bursitis (53709717) Bursitis (727.3) Active confirmed Problem Congenital pes planus (83001280) Flat Foot, Congenital (754.61) Active confirmed Problem Myositis (78784501) Myositis (729.1) Active confirmed Problem Pain in limb (57666641) Pain in Limb (729.5) Active confirmed Problem Plantar fasciitis (152257926) Plantar Fasciitis (728.71) Active confirmed Plan Of Treatment Pending Test Test Name Order Date ,[id number] TENDON SHEATH/LIGAMENT 0 01/23/2013,[id number] TENDON SHEATH/LIGAMENT 0 03/11/2013 Insurance Providers Payer Name Payer Address Payer Phone Subscriber Number Group Number Insured Name Patient Relationship to Insured Coverage Start Date Coverage End Date [employer] [address] [place] [id number] Myra William Self - patient is the insured Medical (General) History Medical History History ICD Code anxiety reflux chicken pox measles
--- OUTSIDE RECORDS SUMMARY | 2025-05-23 06:29 | XMS_ITS | Patient Health Record ---
Author Organization [facility] Address [address] [place] [address] Care Team Providers Care Auto Emissions Technician Name Role Phone Ni Garduno MD Primary Care Provider Billy Bullock Jr Unavailable [phone] Allergies Allergen (clinical drug ingredient) Drug/Non Drug Allergy documented on EMR Reaction Allergy Type Onset Date Status amoxicillin Amoxicillin Unknown Drug Allergy Act irasema Results Component Value Reference Range Notes Complete Blood Count no Diff Reviewed date:05/03/2025 01:04:05 PM Interpretation: Performing Lab:[facility], [address] [place] [phone] Notes/Report: White Blood Count 5.1 4.8-10.8 X10*3/uL Red Blood Count 4.03 4.20-5.50 X10*6/uL Hemoglobin 13.4 12.0-16.0 g/dl Hematocrit 38.9 37.0-47.0 % Mean Corpuscular Volume 96.5 80.0-98.0 fL Mean Corpuscular Hemoglobin 33.3 27.0-33.0 pg Mean Corpuscular HGB Conc 34.4 31.0-35.0 g/dl Red Cell Distribution Width 13.2 11.0-16.0 % Platelet Count 141 160-400 X10*3/uL Mean Platelet Volume 9.1 9.4-12.3 fL NRBC Pct Auto 0.0 0.0-0.2 /100WBC NRBC Abs Auto 0.000 0.0-0.012 X10*3/uL Magnesium Reviewed date:05/03/2025 01:03:19 PM Interpretation: Performing Lab:[facility], [address] [place] [address] Notes/Report: Magnesium 1.5 1.6-2.6 mg/dL Pathology Reviewed date:05/07/2025 03:11:11 PM Interpretation: Performing Lab:[facility], [address] [place] [address] Notes/Report: Reason For Referral Referring Provider First Name iN Referring Provider Last Name Shaan Referring Provider Speciality Internal M edicine Referred Organization [facility] Referred Provider Billy Cobos Jr Referred Address [address] [facility] [address],[place], [place],[address], Referred Provider Specialty Gastroentero logy General Notes Kylie Andrade 2024 08:27:32 AM >[facility] with Dr. 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 Problem 821629427 Irritable bowel syndrome with diarrhea (K58.0) Active confirmed Problem 877621660 Gastroesophageal reflux disease without esophagitis (K21.9) Active confirmed Problem 27922681 Rectal urgency (R15.2) Active confirmed Problem 654039363 Screening for co jossy cancer (Z12.11) Active confirmed Vital Signs Temperature 97.3 degrees Fahrenheit 03/24/2025 Blood pressure diastolic 01 mm Hg 03/24/2025 Height 61.5 in 03/24/2025 Blood pressure systolic 001 mm Hg 03/24/2025 Weight 166.2 lbs 03/24/2025 BMI 30.89 kg/m2 03/24/2025 Encounters Encounter Location Date Provider Diagnosis [facility] [place] Outpatient [address] [place] [id number] 05/02/[address] [facility] [address] [facility] [address] [place] [phone] 03/24/2025 Billy Cobos Jr Ramon's esophagus without dysplasia K22.70 ; Irritable bowel syndrome with diarrhea K58.0 and Screening for colon cancer Z12.11 [facility] [address] [facility] [address] [place] [phone] 05/07/2025 Billy Cobos Jr Assessments Encounter Date Diagnosis (ICD Code) Assessment [...] She is up-to-date on colorectal cancer screening. 03/24/2025 Irritable bowel syndrome with [...] She is up-to-date on colorectal cancer screening. 03/24/2025 Screening for colon cancer [...] 01/29/2020 COLONOSCOPY 06/21/2023 UPPER GI ENDOSCOPY 03/24/2025 Insurance Providers Payer Name Payer Address Payer Phone Subscriber Number Group Number Insured Name Patient Relationship to Insured Coverage Start Date Coverage End Date [employer] [id number] [place] [phone] [id number] DILIP ROBB Self - patient is the [...]
[2025-05-23 10:14] LABS: MANUAL DIFF FLAG NO
[2025-05-23 10:35] LABS: Hematocrit 38.1 % (37.0-47.0); Hemoglobin 13.3 g/dl (12.0-16.0); Imm Gran Abs Auto 0.01 X10*3/uL (0.00-0.03); Imm Gran Pct Auto 0.2 % (0.0-0.4); Lymphocytes Absolute Auto 1.4 X10*3/uL (1.2-4.9); Mean Corpuscular HGB Conc 34.9 g/dl (31.0-35.0); Mean Corpuscular Hemoglobin 34.1 pg (27.0-33.0); Mean Corpuscular Volume 97.7 fL (80.0-98.0); NRBC Abs Auto 0.000 X10*3/uL (0.0-0.012); NRBC Pct Auto 0.0 /100WBC (0.0-0.2); Platelet Count 131 X10*3/uL (160-400); Red Blood Count 3.90 X10*6/uL (4.20-5.50); White Blood Count 4.5 X10*3/uL (4.8-10.8)
[2025-05-23 11:20] LABS: Alanine Aminotransferase 37 U/L (0-31); Albumin Level 3.6 g/dL (3.5-5.0); Alkaline Phosphatase 117 U/L (39-117); Anion Gap 10 (12-20); Aspartate Amino Transferase 46 U/L (5-31); Blood Urea Nitrogen 10 mg/dL (9-16); Calcium 9.1 mg/dL (8.4-10.2); Carbon Dioxide 28 mmol/L (22-29); Chloride 109 mmol/L (96-108); Estimated Glomerular Filt Rate > 60; Ferritin 305 ng/mL (10-250); Iron 73 mcg/dL (30-160); Percent Iron Saturation 34 % (15-50); Potassium 4.2 mmol/L (3.3-5.1); Sodium 143 mmol/L (135-145); Total Iron Binding Capacity 212 mcg/dL (228-428); Total Protein 5.9 g/dL (6.5-8.0); Unsaturated Iron Binding 139 ug/dL
[2025-05-23 11:27] LABS: Folate 14.3 ng/mL (> or = 4.0); Vitamin B12 661 pg/mL (200-900)
== END 2025-05-23 06:26 | disposition home or self-care (01) ==
LOC: HO.HMGCLDS 06:25
PROVIDERS: PCP Internal Medicine; Visit Provider Internal Medicine
DX: I10 Essential (primary) hypertension (principal); R79.89 Other specified abnormal findings of blood chemistry; E78.00 Pure hypercholesterolemia, unspecified; R60.0 Localized edema
CPT/HCPCS: 36415; 80053; 82607; 82728; 82746; 83540; 84443; 85025

== ENCOUNTER 2025-05-26 10:24 | Outpatient (AMB) | payer OTHER, SELFPAY ==
--- OUTSIDE RECORDS SUMMARY | 2025-05-02 05:20 | XMS_ITS ---
Author Organization [facility] Address [address] [place] [address] Care Team Providers Care Catalyst Plant Supervisor Name Role Phone Shaan VENTURA, Ni Primary Care Provider UnavailBilly Vazquez Jr REASON FOR VISIT Ramon's Esophagus Encounters Encounter Location Date Provider Diagnosis [facility] [address] [place] [phone] 05/02/2025 Billy Cobos Jr Plan Of Treatment No Information Progress Notes * MERLINEDILIP KAN:[birth year] (70 yo F)Acc No.[id number]:05/02/2025 EGD/MAC Patient: Abril REVELES DILIP JiAbi Provider: Stephanie Cobos MD :1955 A ge:70 Y S ex:Female Date:05/02/2025 Address:[address] [place], [place] [phone] Pcp:Ni Garduno MD Subjective: * Chief Complaints: * 1 . Ramon's Esophagus. * Medical History: Objective: * Vitals: Assessment: Plan: * Treatment: * * The named appointment provid er may or may not be the originator of this progress note, and it is not deemed complete until electronically signed by the appointment provider. Sign off status: Pending * Provider: Stephanie Cobos MD Date: 0 05/02/2025 Generated for Heather rahman/Justo/eTransmitting on: 0 05/26/2025 11:37 AM EDT
[2025-05-26 10:32] VITALS: BP 124/76; PULSE 75; RESP 18; TEMP 36.8; O2SAT 96; BMI 30.9
--- NOTE | 2025-05-26 10:32 | A.OFFPC_ITS ---
Vital Signs 05/26/25 10:32 Height 5 ft 1.5 in Weight 166 lb BMI 30.9 BP 124/76 Blood Pressure Location Lt brachial Position Sitting Respiration 18 Pulse 75 Pulse Source Pulse Oximeter Temp 98.3 F Temp Source Oral Pulse Oximetry (%) 96 Oxygen Delivery Method Room Air Intake Visit Reasons: Annual PE Intake Note: Pt is here today for PE. Allergies amoxicillin (AMOXICILLIN) Allergy (Intermediate, Verified 05/26/25 10:33) HIVES latex Allergy (Intermediate, Verified 05/26/25 10:33) Redness of Skin, irritation Medication List - Last Reconciled 05/26/25 by Ni Garduno MD alprazolam 0.25 mg (1/2 x 0.5 mg) PO BEDTIME PRN atorvastatin 20 mg PO DAILY budesonide-formoterol 80-4.5 mcg/actuation (Symbicort) 2 puffs PO BID bupropion HCl XL (Wellbutrin XL) 150 mg PO DAILY cholecalciferol (vitamin D3) 125 mcg PO DAILY citalopram 40 mg PO DAILY docusate sodium 100 mg PO BID furosemide 20 mg PO DAILY [Imodium ] latanoprost 0.005% 1 drp ophthalmic (eye) BEDTIME lidocaine 5% 2 patches topical DAILY PRN losartan 100 mg PO DAILY magnesium oxide 400 mg PO BID omeprazole 20 mg PO DAILY potassium chloride ER 30 mEq (3 x 10 mEq) PO DAILY thiamine HCl (vitamin B1) 100 mg PO DAILY timolol maleate 0.5% 1 drp ophthalmic (eye) DAILY@0630 Tobacco use date assessed: 05/26/25 Fall risk assessment: No Falls in past year Last assessed Fall Risk: 05/26/25 Dental Screening Dental Screen Date: 11/01/24 HPI Annual PE HPI Details Patient presents for physical PFS Medical History (Updated 05/26/25 @ 11:42 by Ni Garduno MD) Ramon's esophagus Abnormal echocardiogram IBS (irritable bowel syndrome) Cerumen impaction Rib pain on left side HLD (hyperlipidemia) Glaucoma Elevated LFTs Osteoarthritis of hips, bilateral Nevus Annual physical exam Postmenopausal Knee pain, chronic Plantar fasciitis of left foot Hypercholesterolemia Anxiety HTN (hypertension) Surgical History History of total left hip arthroplasty Hx of eye surgery H/O colonoscopy (07/2023) History of esophagogastroduodenoscopy (EGD) (02/19/20) Family History Father Bladder cancer Mother No problems noted. Maternal Grandmother COPD (chronic obstructive pulmonary disease) Myocardial infarction Maternal Grandfather No problems noted. Paternal Grandfather No problems noted. Paternal Grandmother No problems noted. 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 1. Little interest or pleasure in doing things: several days 2. Feeling down, depressed, or hopeless: not at all 3. Trouble falling or staying asleep, or sleeping too much: several days 4. Feeling tired or having little energy: several days 5. Poor appetite or overeating: several days 6. Feeling bad about yourself - or that you are a failure or have let yourself or your family down: not at all 7. Trouble concentrating on things, such as reading the newspaper or watching television: not at all 8. Moving or speaking so slowly that other people could have noticed. Or the opposite - being so fidgety or restless that you have been moving around a lot more than usual: not at all 9. Thoughts that you would be better off or of hurting yourself in some way: not at all Total score: 4 Depression Screening Interpretation: Negative Depression Screening Done: Yes Source: Developed by Drs. Mason Borges, KathrinJuan Jamil and colleagues, with an educational meli from [employer]. Thrive Questionnaire Date Thrive assessed: 10/29/24 I am a: Patient What is your living situation today?: I have a steady place to live Within the past 12 months, did the food you bought not last and you didn't have the money to get more?: Never true Within the past 12 months, did you worry whether your food would run out before you got money to buy more?: Never true Do you have trouble paying for medicines?: No Do you have trouble getting transportation to medical appointments?: No Do you have trouble paying your heating and electricity bill?: No Do you have trouble taking care of your child, family member or friend?: No Do you have trouble with day-to-day activities such as bathing, preparing meals, shopping, managing finances, etc.?: No Are you currently unemployed and looking for a job?: No Are you interested in more education?: No Please select the resources that you would like help with: None Currently or been in a relationship where the following occur: No concerns reported THRIVE Score: 0 LU-7 AMB Questionnaire LU-7 Date LU - 7 assessed: 11/01/24 Feeling nervous, anxious, or on edge: 0 = Not at all Not being able to stop or control worryin = Not at all Worrying too much about different things: 0 = Not at all Trouble relaxin = Not at all Being so restless that it is hard to sit still: 0 = Not at all Becoming easily annoyed or irritable: 0 = Not at all Feeling afraid as if something awful might happen: 0 = Not at all Total LU-7 score (0-4 normal; 5-9 mild; 10-14 moderate; 15-21 severe): 0 Source: Developed by Drs. Mason Borges, Juan Santos and colleagues, with an educational meli from [employer]. Review of Systems Const All systems reviewed & are unremarkable except as noted in HPI and below Eyes Reports no additional complaints ENT Reports no additional complaints Card Reports no additional complaints Resp Reports no additional complaints GI Reports no additional complaints Reports no additional complaints Physical exam (Primary Care) Vital Signs: Last Vital Signs Temp 98.3 F 05/26/25 10:32 Pulse 75 05/26/25 10:32 Resp 18 05/26/25 10:32 BP 124/76 05/26/25 10:32 Pulse Ox 96 05/26/25 10:32 Oxygen Delivery Method Room Air 05/26/25 10:32 BMI result Body Mass Index 30.9 Tobacco/Smoking Status: Tobacco use Status Tobacco use date assessed 05/26/25 05/26/25 10:38 Patient Tobacco Use Status Never used Tobacco 05/26/25 10:38 e-Cigarette/Vaping Use Never Used 05/26/25 10:38 PHQ-9: PHQ-9 Score PHQ-9: Total score 4 05/26/25 10:38 Depression Screening Interpretation: Negative Thrive Assessment: Date of Thrive Assessment Date Thrive assessed 10/29/24 05/26/25 10:38 Currently or been in a relationship where the following occur: No concerns reported Const General: no acute distress HENMT Head: Yes normal to inspection Ears: TM's normal bilaterally Mouth: Normal oral and palatal mucosa present Eyes General: appearance normal, both eyes and all related structures Neck Neck: Yes no lymphadenopathy and Yes supple Resp Effort & Inspection: normal respiratory effort Auscultation: clear to auscultation bilaterally Cardio Rhythm: regular rhythm Heart sounds: S1 normal heart sound present and S2 normal heart sound present GI Inspection: Yes normal to inspection Palpation (GI): Soft to palpation Percussion: Yes normal to percussion Auscultation: normal bowel sounds Extrem Other: Trace pitting edema bilaterally Immunizations pneumoc 20-homer conj-dip cr(PF) 0.5 mL IM syringe Performing Provider: Ni Garduno MD Performing Location: [facility] Administered by: KATIE Landis on 05/26/25 11:35 Dose Route Admin Location Dispensed Lot Number Expiration Date [facility] Door And Arrival Attendant 0.5 mL IM Right Deltoid 0.5 mL [id number] 02/24/26 [employer] Total Dispensed Waste 0.5 mL 0 % VIS Given Date VIS Provided VIS Publication Date 05/26/25 Single Vaccine 25 Eligibility Eligibility Date Funding Source Not [facility] Eligible 05/26/25 Private Coding Level of Care Code Est Pt Prev Care >65y(96340) Diagnoses Postmenopausal Z78.0 HTN (hypertension) I10 Ramon's esophagus K22.70 Annual physical exam Z00.00 Assessment & Plan Assessment & Plan (1) Postmenopausal: Code(s): Z78.0 - Asymptomatic menopausal state Category: Medical Plan: check DEXA (2) HTN (hypertension): Code(s): I10 - Essential (primary) hypertension Category: Medical Plan: cont meds (3) Ramon's esophagus: Comment: EGD 01/2020, EGD 04/2025, no metaplasia or dysplasia, Code(s): K22.70 - Ramon's esophagus without dysplasia Category: Medical Plan: cont PPI (4) Annual physical exam: Code(s): Z00.00 - Encounter for general adult medical examination without abnormal findings Category: Medical Plan: Well balance diet, regular exercise, patient is up-to-date with the mammogram due for colonoscopy next year DEXA will be checked. Patient will follow-up in 4 months with a fasting labs before Orders: Orders Pneumococcal 20 Immunization Today Z23 - Encounter for immunization Complete Blood Count Auto Diff 4 Months E55.9 - Vitamin D deficiency, unspecified, E78.00 - Pure hypercholesterolemia, unspecified, I10 - Essential (primary) hypertension, R73.9 - Hyperglycemia, unspecified Magnesium 4 Months E55.9 - Vitamin D deficiency, unspecified, E78.00 - Pure hypercholesterolemia, unspecified, I10 - Essential (primary) hypertension, R73.9 - Hyperglycemia, unspecified Vitamin D 25-OH Total 4 Months E55.9 - Vitamin D deficiency, unspecified, E78.00 - Pure hypercholesterolemia, unspecified, I10 - Essential (primary) hypertension, R73.9 - Hyperglycemia, unspecified XR DEXA axial skeleton Today Z78.0 - Asymptomatic menopausal state Comprehensive [place]. Panel Fast 4 Months E55.9 - Vitamin D deficiency, unspecified, E78.00 - Pure hypercholesterolemia, unspecified, I10 - Essential (primary) hypertension, R73.9 - Hyperglycemia, unspecified Lipid Panel 4 Months E55.9 - Vitamin D deficiency, unspecified, E78.00 - Pure hypercholesterolemia, unspecified, I10 - Essential (primary) hypertension, R73.9 - Hyperglycemia, unspecified Medications: Refilled budesonide-formoterol 80-4.5 mcg/actuation (Symbicort) 2 puffs PO BID 10.2 grams 5RF
--- OUTSIDE RECORDS SUMMARY | 2025-05-26 11:38 | XMS_ITS | Patient Health Record ---
[facility] Address [address] [facility] [place] [address] Care Team Providers Care Gasoline Tractor Operator Name Role Phone Rell Baumann MD Primary Care Provider Terence Thomas [phone] Allergies Allergen (clinical drug ingredient) Drug/Non Drug [...] a day; Duration: 30 day(s) Active Calcium 4945-9431 MG-UNIT 1 tablet with a meal Orally [...] Status W/U Status Risk Notes Problem Bursitis (44048987) Bursitis (727.3) Active confirmed Problem Congenital pes planus (15762093) Flat Foot, Congenital (754.61) Active confirmed Problem Myositis (38126276) Myositis (729.1) Active confirmed Problem Pain in limb (05229436) Pain in Limb (729.5) Active confirmed Problem Plantar fasciitis (456521359) Plantar Fasciitis (728.71) Active confirmed Plan Of Treatment Pending Test Test Name Order Date ,[id number] TENDON SHEATH/LIGAMENT 0 01/23/2013,[id number] TENDON SHEATH/LIGAMENT 0 03/11/2013 Insurance Providers Payer Name Payer Address Payer Phone Subscriber Number Group Number Insured Name Patient Relationship to Insured Coverage Start Date Coverage End Date [facility] [address] [place] [address] [id number] Myra William Self - patient is the insured Medical (General) History Medical History History ICD Code anxiety reflux chicken pox measles
--- OUTSIDE RECORDS SUMMARY | 2025-05-26 11:38 | XMS_ITS | Patient Health Record ---
Author Organization [facility] Address [address] [place] [address] Care Team Providers Care Felt Cutting Machine Operator Name Role Phone Ni Garduno MD Primary Care Provider Billy Bullock Jr Unavailable Allergies Allergen (clinical drug ingredient) Drug/Non Drug Allergy documented on EMR Reaction Allergy Type Onset Date Status amoxicillin Amoxicillin Unknown Drug Allergy Act irasema Results Component Value Reference Range Notes Complete Blood Count no Diff Reviewed date:05/03/2025 01:04:05 PM Interpretation: Performing Lab:[facility], [address] [place] [phone] Notes/Report: White Blood Count 5.1 4.8-10.8 X10*3/uL [...] Magnesium Reviewed date:05/03/2025 01:03:19 PM Interpretation: Performing Lab:[facility], [address] [place] [address] Notes/Report: Magnesium 1.5 1.6-2.6 mg/dL Pathology Reviewed date:05/07/2025 03:11:11 PM Interpretation: Performing Lab:[facility], [address] [place] [address] Notes/Report: Reason For Referral Referring Provider First Name Ni Referring Provider Last Name Shaan Referring Provider Speciality Internal M edicine Referred Organization [facility] Referred Provider Billy Cobos Jr Referred Address [address] [facility] [address],[place], [place],[address], Referred Provider Specialty Gastroentero logy General Notes Kylie Andrade 2024 08:27:32 AM >[facility] for visit with Dr. 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 confirmed Problem 733596530 Irritable bowel syndrome with diarrhea (K58.0) Active confirmed Problem 756985468 Gastroesophageal reflux disease without esophagitis (K21.9) Active confirmed Problem 02486887 Rectal urgency (R15.2) Active confirmed Problem 271900611 Screening for co jossy cancer (Z12.11) Active confirmed Vital Signs Temperature 97.3 degrees Fahrenheit 03/24/2025 Blood pressure diastolic 01 mm Hg 03/24/2025 Height 61.5 in 03/24/2025 Blood pressure systolic 001 mm Hg 03/24/2025 Weight 166.2 lbs 03/24/2025 BMI 30.89 kg/m2 03/24/2025 Encounters Encounter Location Date Provider Diagnosis [facility] [place] [address] [place] [id number] 05/02/2025 Billy Cobos Jr [facility] [address] [facility] [address] [place] [phone] 03/24/2025 Billy Cobos Jr Ramon's esophagus without dysplasia K22.70 ; Irritable bowel syndrome with diarrhea K58.0 and Screening for colon cancer Z12.11 [facility] [address] [facility] [address] [place] [phone] 05/07/2025 Billy Cobos Jr Assessments Encounter Date [...] Insured Coverage Start Date Coverage End Date [employer] [id number] [place] [phone] [id number] DILIP ROBB Self - patient is the [...]
== END 2025-05-26 11:57 | disposition home or self-care (01) ==
LOC: HO.HMCC 10:25
PROVIDERS: PCP Internal Medicine; Visit Provider Internal Medicine
DX: Z78.0 Asymptomatic menopausal state (principal); I10 Essential (primary) hypertension; K22.70 Barrett's esophagus without dysplasia; Z00.00 Encounter for general adult medical examination without abnormal findings; Z23 Encounter for immunization

== ENCOUNTER → 2025-05-26 10:24 | Outpatient (BNVA) | payer OTHER, SELFPAY | PROVIDERS: PCP Internal Medicine; Visit Provider Internal Medicine | DX: Z00.00 Encounter for general adult medical examination without abnormal findings (principal); I10 Essential (primary) hypertension; K22.70 Barrett's esophagus without dysplasia; E55.9 Vitamin D deficiency, unspecified; R73.9 Hyperglycemia, unspecified; E78.00 Pure hypercholesterolemia, unspecified; Z23 Encounter for immunization; Z78.0 Asymptomatic menopausal state | CPT/HCPCS: 90471; 90677; 96127 ==

== ENCOUNTER 2025-07-18 12:56 | Outpatient (AMB) | payer OTHER, SELFPAY ==
--- OUTSIDE RECORDS SUMMARY | 2025-05-02 04:20 | XMS_ITS ---
Author Organization [facility] Address [address] [place] [phone] Care Team Providers Care Transformer Builder Name Role Phone Shaan VENTURA, Ni Primary Care Provider Billy Bullock Jr [phone] REASON FOR VISIT Ramon's Esophagus Encounters Encounter Location Date Provider Diagnosis [facility] [address] [place] [phone] 05/02/2025 Billy Cobos Jr Plan Of Treatment No Information Progress Notes * DILIP ROBB:[birth year] (70 yo F)Acc No.[id number]:05/02/2025 EGD/MAC Patient: Abril REVELES DILIP Knowles Provider: Stephanie Cobos MD :1955 A ge:70 Y S ex:Female Date:05/02/2025 Address:[address] [place], [place] [phone] Pcp:Ni Garduno MD Subjective: * Chief Complaints: * B arrett's Esophagus Billing Information: * Procedure Codes: * The named appointment provid er may or may not be the originator of this progress note, and it is not deemed complete until electronically signed by the appointment provider. Sign off status: Pending * Provider: Stephanie Cobos MD Date: 0 05/02/2025 Generated for Heather rahman/Justo/eTransmitting on: 09/17/2024 01:17 PM EST
[2025-07-18 13:08] VITALS: BP 126/80; PULSE 104; RESP 17; TEMP 36.6; O2SAT 95; BMI 31.8
--- NOTE | 2025-07-18 13:08 | A.OFFPC_ITS ---
Vital Signs 07/18/25 13:08 Height 5 ft 1.5 in Weight 171 lb BMI 31.8 BP 126/80 Blood Pressure Location Rt brachial Position Sitting Respiration 17 Pulse 104 H Pulse Source Pulse Oximeter Temp 97.9 F Temp Source Oral Pulse Oximetry (%) 95 Oxygen Delivery Method Room Air Intake Visit Reasons: ER follow up Intake Note: Pt is here today for a ER follow up visit. Allergies amoxicillin (AMOXICILLIN) Allergy (Intermediate, Verified 07/18/25 13:20) HIVES latex Allergy (Intermediate, Verified 07/18/25 13:20) Redness of Skin, irritation Medication List - Last Reconciled 07/18/25 by Ni Garduno MD alprazolam 0.25 mg (1/2 x 0.5 mg) PO BEDTIME PRN atorvastatin 20 mg PO DAILY budesonide-formoterol 80-4.5 mcg/actuation (Symbicort) 2 puffs PO BID bupropion HCl XL (Wellbutrin XL) 150 mg PO DAILY cholecalciferol (vitamin D3) 125 mcg PO DAILY citalopram 40 mg PO DAILY docusate sodium 100 mg PO BID furosemide 20 mg PO DAILY [Imodium ] latanoprost 0.005% 1 drp ophthalmic (eye) BEDTIME lidocaine 5% 2 patches topical DAILY PRN losartan 100 mg PO DAILY magnesium oxide 400 mg PO BID omeprazole 20 mg PO DAILY potassium chloride ER 30 mEq (3 x 10 mEq) PO DAILY thiamine HCl (vitamin B1) 100 mg PO DAILY timolol maleate 0.5% 1 drp ophthalmic (eye) DAILY@0630 Tobacco use date assessed: 07/18/25 Fall risk assessment: No Falls in past year Last assessed Fall Risk: 07/18/25 Dental Screening Dental Screen Date: 11/01/24 [facility] ER follow up HPI Details Patient presents for the follow-up of [facility] ER after trip and fall at home on June 30. Patient has sustained left lower rib fractures. She was admitted to inpatient rehab for 2 weeks. Patient has been slowly improving still reports discomfort in the left lower chest. She has been taking ibuprofen on and off with good relief. Hypertension chronic asthma and chronic anxiety are stable on current medications [facility] Medical History (Updated 07/18/25 @ 15:50 by Ni Garduno MD) Multiple rib fractures Ramon's esophagus Abnormal echocardiogram IBS (irritable bowel syndrome) Cerumen impaction Rib pain on left side HLD (hyperlipidemia) Glaucoma Elevated LFTs Osteoarthritis of hips, bilateral Nevus Annual physical exam Postmenopausal Knee pain, chronic Plantar fasciitis of left foot Hypercholesterolemia Anxiety HTN (hypertension) Surgical History History of total left hip arthroplasty Hx of eye surgery H/O colonoscopy (07/2023) History of esophagogastroduodenoscopy (EGD) (02/19/20) Family History Father Bladder cancer Mother No problems noted. Maternal Grandmother COPD (chronic obstructive pulmonary disease) Myocardial infarction Maternal Grandfather No problems noted. Paternal Grandfather No problems noted. Paternal Grandmother No problems noted. 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 Cognitive needs: No Hearing needs: Yes Vision needs: Yes Questionnaire Thrive Questionnaire Date Thrive assessed: 10/29/24 I am a: Patient What is your living situation today?: I have a steady place to live Within the past 12 months, did the food you bought not last and you didn't have the money to get more?: Never true Within the past 12 months, did you worry whether your food would run out before you got money to buy more?: Never true Do you have trouble paying for medicines?: No Do you have trouble getting transportation to medical appointments?: No Do you have trouble paying your heating and electricity bill?: No Do you have trouble taking care of your child, family member or friend?: No Do you have trouble with day-to-day activities such as bathing, preparing meals, shopping, managing finances, etc.?: No Are you currently unemployed and looking for a job?: No Are you interested in more education?: No Please select the resources that you would like help with: None Currently or been in a relationship where the following occur: No concerns reported THRIVE Score: 0 LU-7 AMB Questionnaire LU-7 Date LU - 7 assessed: 11/01/24 Source: Developed by Drs. Mason Borges, Kathrin Jimenes, Juan Ibarra and colleagues, with an educational meli from [employer]. Review of Systems Const All systems reviewed & are unremarkable except as noted in HPI and below Eyes Reports no additional complaints ENT Reports no additional complaints Card Reports no additional complaints Resp Reports no additional complaints GI Reports no additional complaints Reports no additional complaints Physical exam (Primary Care) Vital Signs: Last Vital Signs Temp 97.9 F 07/18/25 13:08 Pulse 104 H 07/18/25 13:08 Resp 17 07/18/25 13:08 BP 126/80 07/18/25 13:08 Pulse Ox 95 07/18/25 13:08 Oxygen Delivery Method Room Air 07/18/25 13:08 BMI result Body Mass Index 31.8 Tobacco/Smoking Status: Tobacco use Status Tobacco use date assessed 07/18/25 07/18/25 13:25 Patient Tobacco Use Status Never used Tobacco 07/18/25 13:25 e-Cigarette/Vaping Use Never Used 07/18/25 13:08 Thrive Assessment: Date of Thrive Assessment Date Thrive assessed 10/29/24 07/18/25 13:08 Currently or been in a relationship where the following occur: No concerns reported Const General: no acute distress HENMT Mouth: Normal oral and palatal mucosa present Neck Neck: Yes supple Chest Chest palpation & inspection: localized rib tenderness with anteroposterior compression (Left lower chest) Resp Effort & Inspection: normal respiratory effort Auscultation: diminished lung sounds Cardio Rhythm: regular rhythm Heart sounds: S1 normal heart sound present and S2 normal heart sound present GI Inspection: Yes normal to inspection Palpation (GI): Soft to palpation Percussion: Yes normal to percussion Coding Level of Care Code Est Pt Level 4 (27671) Complex visit Add On G2211 Diagnoses Multiple rib fractures S22.49XA HTN (hypertension) I10 Alcohol abuse F10.10 Anxiety F41.9 Assessment & Plan Assessment & Plan (1) Multiple rib fractures: Comment: After fall at home 05/30/2025 Code(s): S22.49XA - Multiple fractures of ribs, unspecified side, initial encounter for closed fracture Category: Medical Plan: Continue supportive care. Out of work until September 02 and restriction of no driving for 4 weeks afterwards (2) HTN (hypertension): Code(s): I10 - Essential (primary) hypertension Category: Medical Plan: Continue current medications (3) Alcohol abuse: Code(s): F10.10 - Alcohol abuse, uncomplicated Category: Social Hx Plan: Decreasing alcoholic intake discussed with the patient (4) Anxiety: Code(s): F41.9 - Anxiety disorder, unspecified Category: Medical Plan: Continue citalopram
--- OUTSIDE RECORDS SUMMARY | 2025-07-18 13:17 | XMS_ITS | Patient Health Record ---
Author Organization [facility] Address [address] [place] [address] Care Team Providers Care News Copy Editor Name Role Phone Ni Garduno MD Primary Care Provider Billy Bullock Jr Unavailable Allergies Allergen (clinical drug ingredient) Drug/Non Drug Allergy documented on EMR Reaction Allergy Type Onset Date Status amoxicillin Amoxicillin Unknown Drug Allergy Act irasema Results Component Value Reference Range Flag Notes Complete Blood Count no Diff Reviewed date:05/03/2025 01:04:05 PM Interpretation: Performing Lab:[facility], [address] [place] [phone] Notes/Report: White Blood Count 5.1 4.8-10.8 X10*3/uL N Red Blood Count 4.03 4.20-5.50 X10*6/uL L Hemoglobin 13.4 12.0-16.0 g/dl N Hematocrit 38.9 37.0-47.0 % N Mean Corpuscular Volume 96.5 80.0-98.0 fL N Mean Corpuscular Hemoglobin 33.3 27.0-33.0 pg H Mean Corpuscular HGB Conc 34.4 31.0-35.0 g/dl N Red Cell Distribution Width 13.2 11.0-16.0 % N Platelet Count 141 160-400 X10*3/uL L Mean Platelet Volume 9.1 9.4-12.3 fL L NRBC Pct Auto 0.0 0.0-0.2 /100WBC N NRBC Abs Auto 0.000 0.0-0.012 X10*3/uL N Magnesium Reviewed date:05/03/2025 01:03:19 PM Interpretation: Performing Lab:[facility], [address] [place] [phone] Notes/Report: Magnesium 1.5 1.6-2.6 mg/dL L Pathology Reviewed date:05/07/2025 03:11:11 PM Interpretation: Performing Lab:[facility], [address] [place] [phone] Notes/Report: Reason For Referral Referring Provider First Name Ni Referring Provider Last Name Shaan Referring Provider Speciality Internal M edicine Referred Organization [facility] Referred Provider Billy Cobos Jr Referred Address [address] [place] [address],[place] [address],[place], [place],[address], Referred Provider Specialty Gastroentero logy General Notes Kylie Andrade 2024 08:27:32 AM >requested [facility] referral from josh for visit with Dr. Falcon on 03-24-25 Referral Priority Routine Medications Medication SIG (Take, Route, Frequency, Duration) Notes Start Date End Date Status Potassium & Magnesium Aspartat 250-250 MG Capsule 1 capsule with a meal Orally Once a day; Duration: 30 day(s) Active Losartan Potassium 50 MG Tablet 1 tablet Orally Once a day; Duration: 30 day(s) Active Latanoprost Active Citalopram Hydrobromide Active Timolol Maleate Acti ve MiraLax (colon prep) 8.3 ounce ((238) grams mixed with Gatorade or Crystal Light orally begin at 5:00 p.m. the day before the procedure; Duration: 1 day 06/21/2023 Active ALPRAZolam 0.25 MG Tablet TAKE 1 TABLET BY MOUTH 3 TIMES A DAY NEEDED Oral prn Not-Taking/VT N Calcium 600 MG Tablet 1 tablet with meal s Orally Twice a day Not-Taking/VT N Omeprazole 20 MG Capsule Delayed Release 1 capsule 1/2 to 1 hour before morning meal Orally Once a day 03/24/2025 Active Immunizations Vaccine Route Administration Date Status Comme nts Influenza Unknown 05/28/2019 Administered Influenza Unknown 05/28/2021 Administered Influenza Unknown 06/15/2022 Administered Influenza Unknown 06/07/2023 Administered Influenza Unknown 06/18/2024 Administered Social History Social History Drugs/Alcohol: Social Info Question Answer Notes Alcohol Screen Did you have a drink containing alcohol in the past year? Yes How often did you have a drink containing alcohol in the past year? 2 to 4 times a month (2 points) How many drinks did you have on a typical day when you were drinking in the past year? 1 or 2 drinks (0 point) How often did you have 6 or more drinks on one occasion in the past year? 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 [employer] Problems Problem Type SNOMED Code ICD Code Onset Dates Problem Status W/U Status Risk Notes Problem History of polyp of colon (situation) (122217266) Personal history of colonic polyps (Z86.010) Active confirmed Problem Ramon's esophagus (590938287) 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) Active confirmed Problem Irritable bowel syndrome with diarrhea (860657642) Irritable bowel syndrome with diarrhea (K58.0) Active confirmed Problem Gastroesophageal reflux disease without esophagitis (261368229) Gastroesophageal reflux disease without esophagitis (K21.9) Active confirmed Problem Fecal urgency (03420631) Rectal urgency (R15.2) Active confirmed Problem Screening for colon cancer (693658456) Screening for colon cancer (Z12.11) Active confirmed Vital Signs Temperature 97.3 degrees Fahrenheit 03/24/2025 Blood pressure diastolic 01 mm Hg 03/24/2025 Height 61.5 in 03/24/2025 Blood pressure systolic 001 mm Hg 03/24/2025 Weight 166.2 lbs 03/24/2025 BMI 30.89 kg/m2 03/24/2025 Encounters Encounter Location Date Provider Diagnosis [facility] [address] [address] [place], [place] [phone] 05/02/2025 Billy Cobos Jr [facility] [address] [place] [phone] 03/24/2025 Billy Cobos Jr Ramon's esophagus without dysplasia K22.70 ; Irritable bowel syndrome with diarrhea K58.0 and Screening for colon cancer Z12.11 [facility] [address] [place] [phone] 05/07/2025 Billy Alonsoord Assessments Encounter Date Diagnosis (ICD Code) Assessment [...] Insured Coverage Start Date Coverage End Date [employer] [address] [place] [phone] [id number] DILIP ROBB Self - patient is the [...]
--- OUTSIDE RECORDS SUMMARY | 2025-07-18 13:17 | XMS_ITS | Patient Health Record ---
Author [facility] Address [address] [facility] [place] [address] Care Team Providers Care Alumni Relations Officer Name Role Phone Rell Baumann MD Primary Care Provider Terence Fernandez Unavailable [phone] Allergies Allergen (clinical drug ingredient) Drug/Non Drug [...] a day; Duration: 30 day(s) Active Calcium 6501-4192 MG-UNIT 1 tablet with a meal Orally [...] Status W/U Status Risk Notes Problem Bursitis (79553662) Bursitis (727.3) Active confirmed Problem Congenital pes planus (75813064) Flat Foot, Congenital (754.61) Active confirmed Problem Myositis (69455167) Myositis (729.1) Active confirmed Problem Pain in limb (27797458) Pain in Limb (729.5) Active confirmed Problem Plantar fasciitis (297330044) Plantar Fasciitis (728.71) Active confirmed Plan Of Treatment Pending Test Test Name Order Date ,[id number] TENDON SHEATH/LIGAMENT 0 01/23/2013,[id number] TENDON SHEATH/LIGAMENT 0 03/11/2013 Insurance Providers Payer Name Payer Address Payer Phone Subscriber Number Group Number Insured Name Patient Relationship to Insured Coverage Start Date Coverage End Date [facility] [address] [place] [id number] Myra William Self - patient is the insured Medical (General) History Medical History History ICD Code anxiety reflux chicken pox measles
== END 2025-07-18 15:52 | disposition home or self-care (01) ==
LOC: HO.HMCC 12:56
PROVIDERS: PCP Internal Medicine; Visit Provider Internal Medicine
DX: S22.49XA Multiple fractures of ribs, unspecified side, initial encounter for closed fracture (principal); I10 Essential (primary) hypertension; F10.10 Alcohol abuse, uncomplicated; F41.9 Anxiety disorder, unspecified